=== PATIENT | male | born 1965 | race African-American/Black ===

== ENCOUNTER 2017-04-15 16:14 | Inpatient (IN) | payer BC, OTHER ==
[~2017-04-15] VITALS: Ht 177.8 cm; Wt 88.5 kg
[~2017-04-15 16:14] MED LIST: DEPAKOTE500 MG PO; MINIPRESS1 MG PO; NAPHAZOLINE HCL15 ML OP; NKM; NYSTOP POWDER15 GM EXT; QUETIAPINE FUM200 MG ORAL; TIMOPTIC 0.5%1 EACH OP; TRUSOPT10 ML BOTH EYES
[2017-04-15] MEDS ORDERED: LORazepam Inj 2mg/ml 1ml IV ONE (16:30)
[2017-04-15 16:48] LABS: BASOPHILS % (AUTO) 1.9 % (0.0-2.0); EOSINOPHILS % (AUTO) 0.2 % (0.0-3.0); LYMPHOCYTES % (AUTO) 24.8 % (20.0-45.0); MEAN CORPUSCULAR HEMOGLOBIN 31.9 PG (27.0-31.0); MEAN CORPUSCULAR HGB CONC 33.5 G/DL (32.0-36.0); MEAN CORPUSCULAR VOLUME 95 FL (80-99); MEAN PLATELET VOLUME 8.3 FL (6.5-10.1); MONOCYTES % (AUTO) 9.7 % (1.0-10.0); NEUTROPHILS % (AUTO) 63.5 % (45.0-75.0); PLATELET COUNT 351 K/UL (150-450); RED BLOOD COUNT 4.38 M/UL (4.70-6.10); RED CELL DISTRIBUTION WIDTH 12.4 % (11.6-14.8); WHITE BLOOD COUNT 15.4 K/UL (4.8-10.8)
[2017-04-15] MEDS ORDERED: UNOBMED (17:02)
[2017-04-15 17:34] VITALS: BP 119/84
[2017-04-15 18:18] LABS: TROPONIN I < 0.30 ng/mL (<=0.30)
[2017-04-15 18:21] LABS: ALANINE AMINOTRANSFERASE 49 U/L (3-41); ALBUMIN/GLOBULIN RATIO 1.3 (1.0-2.7); ANION GAP 13 (5-15); ASPARTATE AMINO TRANSFERASE 60 U/L (5-40); CALCIUM 8.2 mg/dL (8.6-10.2); CARBON DIOXIDE 26 mEQ/L (20-30); CHLORIDE 106 mEQ/L (98-107); CREATININE 1.2 mg/dL (0.7-1.2); GLOMERULAR FILTRATION RATE > 60 mL/min (>60); HEMOLYSIS 132; POTASSIUM 4.4 mEQ/L (3.4-4.9); SODIUM 145 mEQ/L (135-145); TOTAL PROTEIN 6.7 g/dL (6.6-8.7)
[2017-04-15 18:31] LABS: CKMB 14.6 ng/mL (< 6.7)
[2017-04-15 18:40] VITALS: BP 119/83
[2017-04-15] MEDS ORDERED: ABILIFY20 MG ORAL (18:57)
[2017-04-15] MEDS ORDERED: Nitroglycerin Subl 0.4mg tab SL PRN (19:30)
[2017-04-15 19:51] VITALS: BP 119/78
--- NOTE | 2017-04-15 20:14 | Emergency Room Report ---
History of Present Illness General Chief Complaint: Chest Pain Source: Patient Present Illness HPI 51-year-old male presents ED complaining of chest pain. Per EMS patient used cocaine today and shortly after developed chest pain. Patient was given aspirin and nitroglycerin by EMS without relief. Pain is a 7/10, squeezing, nonradiating. Denies shortness of breath. Denies history of high blood pressure diabetes. No other aggravating relieving factors. Denies any other associated symptoms Allergies: Coded Allergies: HALOPERIDOL (Unverified Allergy, Unknown, 07/28/14) MORPHINE (Unverified Allergy, Unknown, 07/28/14) Patient History Past Medical History: psych hx Past Surgical History: none Pertinent Family History: none Social History: Reports: drug use, Denies: smoking, alcohol use Immunizations: UTD Reviewed Nursing Documentation: PMH: Agreed, PSxH: Agreed Nursing Documentation-PMH Hx Cardiac Problems: No Hx Cancer: No Hx Gastrointestinal Problems: Yes History Of Psychiatric Problem: Yes - depression, drug use Hx Neurological Problems: No Review of Systems All Other Systems: negative except mentioned in HPI Physical Exam Vital Signs Date Time Temp Pulse Resp B/P (MAP) Pulse Ox O2 Delivery O2 Flow Rate FiO2 04/15/17 15:58 99.1 109 20 149/89 96 Room Air Sp02 EP Interpretation: reviewed, normal General Appearance: no apparent distress, alert, GCS 15, non-toxic Head: normocephalic, atraumatic Eyes: bilateral eye normal inspection, bilateral eye PERRL ENT: hearing grossly normal, normal pharynx, no angioedema, normal voice Neck: full range of motion, supple/symm/no masses Respiratory: chest non-tender, lungs clear, normal breath sounds, speaking full sentences Cardiovascular #1: no edema, tachycardia Cardiovascular #2: 2+ carotid (R), 2+ carotid (L), 2+ radial (R), 2+ radial (L) , 2+ dorsalis pedis (R), 2+ dorsalis pedis (L) Gastrointestinal: normal bowel sounds, non tender, soft, non-distended, no guarding, no rebound Rectal: deferred Genitourinary: normal inspection, no CVA tenderness Musculoskeletal: back normal, gait/station normal, normal range of motion, non- tender Neurologic: alert, oriented x3, responsive, motor strength/tone normal, sensory intact, speech normal Psychiatric: judgement/insight normal, memory normal, mood/affect normal, no suicidal/homicidal ideation Reflexes: 3+ bicep (R), 3+ bicep (L), 3+ tricep (R), 3+ tricep (L), 3+ knee (R) , 3+ knee (L) Skin: normal color, no rash, warm/dry, well hydrated Lymphatic: no adenopathy Medical Decision Making Diagnostic Impression: Primary Impression: Cocaine abuse Additional Impressions: ACS (acute coronary syndrome) Rhabdomyolysis Qualified Codes: M62.82 - Rhabdomyolysis ER Course Hospital Course 51-year-old male presents ED complaining of chest pain after cocaine use Differential diagnoses include: NM/unstable angina, contusion, muscle strain, PTX, rib fracture Clinical course Patient placed on stretcher. on monitoring and evaluation advisor. After initial history and physical I ordered labs, EKG, chest x-ray, IVFs, ativan labs reviewed- leukocytosis noted, hemoglobin/hematocrit stable, electrolytes okay, CK elevated, troponin negative EKG shows sinus tachycardia, no acute ischemic changes interpreted by me Chest x-ray- unremarkable Patient chest pain improved, tachycardia improved after Ativan Case discussed with Dr. Ge and he agreed to accept the patient to his service for further care and support I. I feel this is a highly complex case requiring extensive working including EKG/Rhythm strip, Xray/CT/US, Blood/urine lab work, repeat exams while in ED, and administration of strong opiates/narcotics for pain control, admission to hospital or close patient follow up. Diagnosis - ACS, cocaine abuse, rhabdomyolysis admitted to telemetry in serious condition Labs Test 04/15/17 16:30 04/15/17 17:30 White Blood Count 15.4 K/UL (4.8-10.8) Red Blood Count 4.38 M/UL (4.70-6.10) Hemoglobin 14.0 G/DL (14.2-18.0) Hematocrit 41.7 % (42.0-52.0) Mean Corpuscular Volume 95 FL (80-99) Mean Corpuscular Hemoglobin 31.9 PG (27.0-31.0) Mean Corpuscular Hemoglobin Concent 33.5 G/DL (32.0-36.0) Red Cell Distribution Width 12.4 % (11.6-14.8) Platelet Count 351 K/UL (150-450) Mean Platelet Volume 8.3 FL (6.5-10.1) Neutrophils (%) (Auto) 63.5 % (45.0-75.0) Lymphocytes (%) (Auto) 24.8 % (20.0-45.0) Monocytes (%) (Auto) 9.7 % (1.0-10.0) Eosinophils (%) (Auto) 0.2 % (0.0-3.0) Basophils (%) (Auto) 1.9 % (0.0-2.0) Urine Opiates Screen Negative (NEGATIVE) Urine Barbiturates Screen Negative (NEGATIVE) Phencyclidine (PCP) Screen Negative (NEGATIVE) Urine Amphetamines Screen Negative (NEGATIVE) Urine Benzodiazepines Screen Negative (NEGATIVE) Urine Cocaine Screen Positive (NEGATIVE) Urine Marijuana (THC) Screen Positive (NEGATIVE) Sodium Level 145 mEQ/L (135-145) Potassium Level 4.4 mEQ/L (3.4-4.9) Chloride Level 106 mEQ/L (98-107) Carbon Dioxide Level 26 mEQ/L (20-30) Anion Gap 13 (5-15) Blood Urea Nitrogen 22 mg/dL (7-23) Creatinine 1.2 mg/dL (0.7-1.2) Estimat Glomerular Filtration Rate > 60 mL/min (>60) Glucose Level 91 mg/dL (74-106) Calcium Level 8.2 mg/dL (8.6-10.2) Total Bilirubin 0.8 mg/dL (0.0-1.2) Aspartate Amino Transf (AST/SGOT) 60 U/L (5-40) Alanine Aminotransferase (ALT/SGPT) 49 U/L (3-41) Alkaline Phosphatase 50 U/L (40-129) Total Creatine Kinase 1836 U/L (38-174) Creatine Kinase MB 14.6 ng/mL (< 6.7) Creatine Kinase MB Relative Index 0.7 Troponin I < 0.30 ng/mL (<=0.30) Total Protein 6.7 g/dL (6.6-8.7) Albumin 3.9 g/dL (3.5-5.2) Globulin 2.8 g/dL Albumin/Globulin Ratio 1.3 (1.0-2.7) EKG Diagnostic Results Rate: tachycardiac Rhythm: NSR ST Segments: no acute changes ASA given to the pt in ED: No - given by ems Rhythm Strip Diag. Results EP Interpretation: yes Rhythm: NSR, no PVC's, no ectopy Chest X-Ray Diagnostic Results Chest X-Ray Diagnostic Results : Chest X-Ray Ordered: Yes # of Views/Limited/Complete: 1 View Indication: Chest Pain EP Interpretation: Yes Interpretation: no consolidation, no effusion, no pneumothorax, no acute cardiopulmonary disease Impression: No acute disease Electronically Signed by: Electronically signed by Josh Levi MD Last Vital Signs Date Time Temp Pulse Resp B/P (MAP) Pulse Ox O2 Delivery O2 Flow Rate FiO2 04/15/17 19:51 98.4 92 16 119/78 98 Room Air Status: improved Disposition: ADMITTED INPATIENT Condition: Serious Referrals: NOT CHOSEN MAGUE/,REFERRING (PCP) JOSH LEVI M.D. Apr 15, 2017 20:14
[2017-04-15] MEDS ORDERED: Milk of Magnesia 30ml Ud ORAL PRN (21:00)
[2017-04-15] MEDS ORDERED: Zolpidem 5mg tab ORAL PRN (21:00)
[2017-04-15 21:50] VITALS: BP 126/78
[2017-04-15 23:01] VITALS: BP 124/76
[2017-04-15 23:45] VITALS: BP 124/79
[2017-04-16] VITALS: BP 146/74
[2017-04-16] MEDS: Docusate 100mg cap ORAL SCH ×3 (00:59→21:54)
[2017-04-16] MEDS: 1/2NS w/KCl 20mEq 1000ml 1,000 ML IV SCH ×3 (01:00→17:05)
[2017-04-16] MEDS: Heparin 5000 units/ml inj SUBQ SCH ×4 (01:00→21:13)
[2017-04-16] MEDS: LORazepam Inj 2mg/ml 1ml IV PRN ×2 (02:08→21:54)
[2017-04-16 04:00] VITALS: BP 127/79
[2017-04-16 07:33] LABS: ANION GAP 9 (5-15); CALCIUM 10.8 mg/dL (8.6-10.2); CARBON DIOXIDE 27 mEQ/L (20-30); CHLORIDE 103 mEQ/L (98-107); GLOMERULAR FILTRATION RATE > 60 mL/min (>60); HEMOLYSIS 1; POTASSIUM 3.8 mEQ/L (3.4-4.9); SODIUM 139 mEQ/L (135-145)
[2017-04-16 08:00] VITALS: BP 116/86
[2017-04-16] MEDS ORDERED: ARIPiprazole 10mg tab ORAL SCH (09:00)
[2017-04-16] MEDS: Aspirin Baby 81mg ORAL SCH (09:24)
--- NOTE | 2017-04-16 09:55 | Diagnostic Imaging Report ---
Indication: Chest pain Technique: One view of the chest Comparison: none Findings: Lungs and pleural spaces are clear. Heart size is normal. Impression: No acute process This agrees with the preliminary interpretation provided by the emergency room physician
[2017-04-16 11:46] VITALS: BP 114/73
--- NOTE | 2017-04-16 11:48 | Wound Care Consultation ---
Wound Assessment Wound Assessment : Wound Number: 1 Wound Present on Admission: Yes New Wound: No Status Change of Wound: No Wound Location Body Site Modif: right Wound Location Body Site: heel Wound Type: pressure ulcer Madeline Test: Does not Madeline Pressure Ulcer Stage: IV/unstageable Wound Thickness: Full Thickness Wound Length: 2.0 Wound Width: 1.5 Wound Depth: utd Percent of Wound Moody/Red: 20 Percent of Wound Bed Yellow/Wh: 80 Wound Drainage Description: Serosanguineous Wound Drainage Amount: Moderate Wound Drainage Odor: None/Absent Tissue Surrounding Wound: Macerated Wound General Appearance: Reddened, Necrotic Wound Comment #1 right heel pressure ulcer unstageable. Recommendation. -Local wound care as ordered. -Turn and reposition. -Keep clean and dry. -pressure reducing mattress. -Optimize nutrition. -apply heel protectors. - Float heels -Avoid friction. -Assess and notify MD for any changes of condition to skin. OSITO PABON Apr 16, 2017 11:48
[2017-04-16] MEDS: Dorzolamide 2% Btl BOTH EYES SCH ×3 (12:04→17:04)
[2017-04-16 16:00] VITALS: BP 122/82
--- NOTE | 2017-04-16 19:03 | Cardiology Report ---
APPROVED REPORT EKG Measurement Heart [id number] Sinus tachycardia Moderate voltage criteria for LVH, may be normal variant Borderline ECG
[2017-04-16 20:28] VITALS: BP 121/77
--- NOTE | 2017-04-16 21:30 | History and Physical Report ---
DATE OF ADMISSION: 04/15/2017 CHIEF COMPLAINT: Suicidal ideation and drug overdose. History Of Present Illness: This is a 51-year-old male with long history of depression and polysubstance abuse. The patient claims that he had suicidal ideation and used cocaine due to that. The patient developed also chest pain. PAST MEDICAL HISTORY: 1. Depression. 2. Psychosis. 3. Glaucoma. Home Medications: Abilify, Depakote, Trusopt, eyedrops, nystatin powder, Minipress capsules, Seroquel, and timolol eyedrops. ALLERGIES: To haloperidol and morphine. FAMILY HISTORY: Unremarkable. SOCIAL HISTORY: He lives at home. HABITS: Significant for polysubstance abuse which includes cocaine. Review Of Systems: HEENT: Hearing and eyesight are normal. Endocrine: No history of diabetes, thyroid, or adrenal problems. Respiratory: He denies shortness of breath, cough, or hemoptysis. Cardiovascular: He had chest pain when presented to the ED, currently subsided. Neurologic: No history of stroke, syncope, or Parkinson disease. PHYSICAL EXAMINATION: General: This is a middle-aged male, who is in no acute distress. The patient seems to be in depressed mood. Vital Signs: Blood pressure 127/79, pulse 90 and regular, respirations 20, and temperature 98.6. HEENT: Head is normocephalic and atraumatic. Pupils are equal, round, and reactive to light and accommodation consensually. Neck: Supple. Trachea midline. There was no lymphadenopathy or thyromegaly. LUNGS: Clear to auscultation and percussion. HEART: Regular rate and rhythm without rubs, murmurs, or gallops. ABDOMEN: Soft and nontender. Bowel sounds are active. EXTREMITIES: No clubbing, cyanosis, or edema. Neurological: He is alert and oriented x4. Cranial nerves II through XII intact. Laboratory And Ancillary Data: EKG shows LVH, no signs of ischemia. CBC, white count 15,400, otherwise within normal limits. Urine toxicology screen significant for cocaine and marijuana. Serum chemistry, calcium 8.2, AST 60, ALT 49. CPK 1836 on admission yesterday. Today's labs pending. ASSESSMENT: 1. Acute rhabdomyolysis, mild due to cocaine use. 2. Atypical chest pain due to cocaine use. 3. Polysubstance abuse. 4. Suicidal ideation. PLAN: 1. Resume home medications. 2. Psychiatric consultation. 3. The patient needs a sitter. 4. Try to transfer to the [facility] where the patient's primary care is provided. 5. Continue telemetry. Anupam Manning M.D. DR: MEREDITH JOB#: [id number] CC:
--- NOTE | 2017-04-16 23:28 | Consultation ---
History of Present Illness General Chief Complaint: Chest Pain Present Illness HPI 51-year-old male with long history of depression and polysubstance abuse. The patient stated that he has had suicidal ideation, he also used cocaine. He has hx of drug use, kicked him out trying to get a divorce he has a job at [employer]. the pt stated that he is currently homeless. target sxs depressed mood, anhedonia, decrease energy Allergies: Coded Allergies: HALOPERIDOL (Unverified Allergy, Unknown, 07/28/14) MORPHINE (Unverified Allergy, Unknown, 07/28/14) Medication History Scheduled Aripiprazole* (Abilify*), 20 MG ORAL DAILY, (Reported) Divalproex Sodium (Depakote), 1,500 MG PO DAILY, (Reported) Dorzolamide Hcl* (Trusopt*), 1 DROP BOTH EYES TID, (Reported) Quetiapine Fumarate* (Seroquel*), 100 MG ORAL HS, (Reported) Timolol Maleate/Pf (Timoptic 0.5% Ocudose Drop), 1 EACH OP BID, (Reported) Miscellaneous Medications Naphazoline Hcl (Naphazoline Hcl), 15 ML OP, (Reported) Nystatin (Nystop), 15 GM EXT, (Reported) Prazosin Hcl* (Minipress*), 20 MG PO, (Reported) Unable to Obtain Medications (Unable To Obtain Meds), (Reported) Patient History History Provided By: Patient, Medical Record, PMD Healthcare decision maker Resuscitation status Full Code Advanced Directive on File Past Medical/Surgical History Past Medical/Surgical History: (1) Suicidal ideation (2) Suicidal ideation (3) Hemoptysis (4) Pneumonia (5) Cough (6) Depression (7) Umbilical hernia (8) Glaucoma (9) Inguinal hernia, right (10) Pneumonia (11) Suicidal ideation (12) Renal failure (ARF), acute on chronic (13) Polysubstance abuse (14) Chest pain of uncertain etiology (15) Rhabdomyolysis (16) ACS (acute coronary syndrome) (17) Cocaine abuse Review of Systems Psychiatric: Reports: see HPI, prior hx, anxiety, depressed feelings, emotional problems Physical Exam General Appearance: no apparent distress, alert Neurologic: alert, oriented x 3, responsive, depressed affect Last 24 Hour Vital Signs Date Time Temp Pulse Resp B/P (MAP) Pulse Ox O2 Delivery O2 Flow Rate FiO2 04/16/17 20:28 98.1 81 19 121/77 96 Room Air 04/16/17 16:00 98.1 87 19 122/82 96 Room Air 04/16/17 16:00 83 04/16/17 12:00 82 04/16/17 11:46 97.7 84 20 114/73 98 Room Air 04/16/17 08:00 97.0 82 19 116/86 99 Room Air 04/16/17 08:00 88 04/16/17 04:00 95 04/16/17 04:00 98.6 90 20 127/79 99 Room Air 04/16/17 00:00 97.9 91 22 146/74 96 Room Air 04/15/17 23:58 92 04/15/17 23:50 80 14 124/79 98 Room Air 04/15/17 23:45 97.8 80 14 124/79 98 Room Air Intake and Output 04/16/17 04/17/17 19:00 07:00 Intake Total 1020 ml 300 ml Output Total 1350 ml Balance -330 ml 300 ml Intake Oral 520 ml IV Total 500 ml 300 ml Output Urine Total 1350 ml # Bowel Movements 2 Laboratory Tests Test 04/16/17 06:25 Sodium Level 139 mEQ/L (135-145) Potassium Level 3.8 mEQ/L (3.4-4.9) Chloride Level 103 mEQ/L (98-107) Carbon Dioxide Level 27 mEQ/L (20-30) Anion Gap 9 (5-15) Blood Urea Nitrogen 19 mg/dL (7-23) Creatinine 1.0 mg/dL (0.7-1.2) Estimat Glomerular Filtration Rate > 60 mL/min (>60) Glucose Level 101 mg/dL (74-106) Calcium Level 10.8 mg/dL (8.6-10.2) #H Total Creatine Kinase 1403 U/L (38-174) H Height (Feet): 5 Height (Inches): 10.00 Weight (Pounds): 195 Medications Current Medications Medications (Trade) Dose Ordered Sig/Pily Route PRN Reason Start Time Stop Time Status Last Admin Dose Admin Acetaminophen (Tylenol) 650 mg Q4H PRN ORAL Mild Pain (Pain Scale 1-3) 04/15/17 19:30 05/15/17 19:29 Aripiprazole (Abilify) 20 mg DAILY ORAL 04/16/17 09:00 05/16/17 08:59 04/16/17 09:25 Aspirin (ASA) 81 mg DAILY ORAL 04/16/17 09:00 05/16/17 08:59 04/16/17 09:24 Bupropion HCl (Wellbutrin XL) 150 mg DAILY ORAL 04/17/17 09:00 05/17/17 08:59 Dextrose (Dextrose 50%) STAT PRN IV Hypoglycemia 04/15/17 19:30 05/15/17 19:29 Docusate Sodium (Colace) 100 mg EVERY 12 HOURS ORAL 04/15/17 21:00 05/15/17 20:59 04/16/17 21:54 Dorzolamide HCl (Trusopt) 1 drop TID BOTH EYES 04/16/17 09:00 05/16/17 08:59 04/16/17 17:04 Heparin Sodium (Porcine) (Heparin 5000 units/ml) 5,000 units EVERY 8 HOURS SUBQ 04/15/17 22:00 05/15/17 21:59 Lorazepam (Ativan 2mg/ml 1ml) 0.5 mg Q4H PRN IV For Anxiety 04/15/17 19:30 04/22/17 19:29 04/16/17 21:54 Magnesium Hydroxide (Mom) 30 ml HSPRN PRN ORAL Constipation 04/15/17 21:00 05/15/17 20:59 Nitroglycerin (Ntg) 0.4 mg Q5M PRN SL Prn Chest Pain 04/15/17 19:30 05/15/17 19:29 Ondansetron HCl (Zofran) 4 mg Q6H PRN IVP Nausea & Vomiting 04/15/17 19:30 05/15/17 19:29 Pantoprazole (Protonix) 40 mg DAILY ORAL 04/16/17 09:00 05/16/17 08:59 04/16/17 09:25 Prazosin HCl (Minipress) 2 mg QHS ORAL 04/16/17 21:00 05/16/17 20:59 04/16/17 21:52 Quetiapine Fumarate (SEROquel) 100 mg QHS ORAL 04/16/17 21:00 05/16/17 20:59 04/16/17 21:53 Sodium 1,000 ml @ 100 mls/hr Q10H IV 04/15/17 22:00 05/15/17 21:59 04/16/17 17:05 Zolpidem Tartrate (Ambien) 5 mg HSPRN PRN ORAL Insomnia 04/15/17 21:00 04/22/17 20:59 Assessment/Plan Status: stable Assessment/Plan Bipolar d/o -dc sbilify and welbutrin -seroquel 200mg -refer to out pt psych Jose Meade M.D. Apr 16, 2017 23:28
[2017-04-17] VITALS: BP 124/71
[2017-04-17 04:00] VITALS: BP 120/70
[2017-04-17] MEDS: 1/2NS w/KCl 20mEq 1000ml 1,000 ML IV SCH ×2 (04:00→14:04)
[2017-04-17] MEDS: Heparin 5000 units/ml inj SUBQ SCH ×3 (05:13→22:00)
[2017-04-17 08:00] VITALS: BP 123/77
[2017-04-17] MEDS: Dorzolamide 2% Btl BOTH EYES SCH ×3 (09:13→18:47)
[2017-04-17] MEDS: Docusate 100mg cap ORAL SCH ×2 (09:13→20:31)
[2017-04-17] MEDS: BuPROPion XL 150mg tab ORAL SCH (09:14)
[2017-04-17] MEDS: Aspirin Baby 81mg ORAL SCH (09:14)
--- NOTE | 2017-04-17 10:50 | General Progress Note ---
Assessment/Plan Assessment/Plan Acute Rhabdomyolysis reslving. Suicidal Ideation -per Psychitry. Subjective Allergies: Coded Allergies: HALOPERIDOL (Unverified Allergy, Unknown, 07/28/14) MORPHINE (Unverified Allergy, Unknown, 07/28/14) Subjective No new c/o. Psych Eval noted. Objective Last 24 Hour Vital Signs Date Time Temp Pulse Resp B/P (MAP) Pulse Ox O2 Delivery O2 Flow Rate FiO2 04/17/17 08:00 97.7 94 20 123/77 97 Room Air 04/17/17 08:00 74 04/17/17 04:00 97.9 83 18 120/70 98 Room Air 04/17/17 03:38 84 04/17/17 00:00 98.1 86 19 124/71 96 Room Air 04/16/17 23:58 86 04/16/17 20:28 98.1 81 19 121/77 96 Room Air 04/16/17 20:00 84 04/16/17 16:00 98.1 87 19 122/82 96 Room Air 04/16/17 16:00 83 04/16/17 12:00 82 04/16/17 11:46 97.7 84 20 114/73 98 Room Air Laboratory Tests 04/17/17 06:15: Total Creatine Kinase 480H Height (Feet): 5 Height (Inches): 10.00 Weight (Pounds): 195 Objective Seems depressed. Cv RR Lungs CTA Abd SNT. BS+ E No CCE JACKELIN MONTESINOS Apr 17, 2017 10:50
[2017-04-17 12:00] VITALS: BP 122/82
[2017-04-17 16:00] VITALS: BP 126/76
[2017-04-17 20:00] VITALS: BP 125/82
[2017-04-17] MEDS: LORazepam Inj 2mg/ml 1ml IV PRN (20:33)
[2017-04-17] MEDS ORDERED: QUEtiapine 200mg tab ORAL SCH (21:00)
[2017-04-17] MEDS ORDERED: LORazepam 1mg tab ORAL PRN (23:00)
[2017-04-18] VITALS: BP 120/81
[2017-04-18] MEDS: 1/2NS w/KCl 20mEq 1000ml 1,000 ML IV SCH ×2 (01:04→11:05)
[2017-04-18 04:00] VITALS: BP 120/71
[2017-04-18] MEDS: Heparin 5000 units/ml inj SUBQ SCH ×2 (06:00→13:42)
[2017-04-18 08:00] VITALS: BP 132/85
[2017-04-18] MEDS: BuPROPion XL 150mg tab ORAL SCH (08:45)
[2017-04-18] MEDS: Docusate 100mg cap ORAL SCH (08:45)
[2017-04-18] MEDS: Dorzolamide 2% Btl BOTH EYES SCH ×3 (08:45→17:08)
[2017-04-18] MEDS: Aspirin Baby 81mg ORAL SCH (08:46)
--- NOTE | 2017-04-18 09:46 | Progress Note ---
DATE: 04/17/2017 Subjective: The patient continues to present with depressed mood. He is withdrawn. He is crashing from using cocaine. The patient still expresses suicidal ideation, however, he did not have any plan or intention during the day. The patient was on one-to-one during the day. The patient is compliant with medication. Eating 100 percentile. Sleep is adequate. Mental Status Examination: The patient is alert and oriented x4. Mood is depressed. Affect is constricted. Congruent with mood. Thought process is concrete. Thought content, positive for suicidal ideation. No plan or intention to have a suicide attempt. ASSESSMENT: 1. Depression. 2. Cocaine use. PLAN: 1. We will continue the current medications. 2. The nurse called for a sitter. The order was not given. We will increase the Seroquel to 300 mg at bedtime. 3. We will continue the Ativan. 4. We will change the dose from 0.5 mg to 2 mg every 6 hours p.o. 5. We will continue to follow and readjust the medications. Jose Meade M.D. DR: SHARON JOB#: [id number] CC:
--- NOTE | 2017-04-18 10:01 | General Progress Note ---
Assessment/Plan Status: stable, progressing Assessment/Plan bipolar d/o cocaine abuse -Wellbutrin xl 150 -seroquel -rec drug rehab Subjective Neurologic/Psychiatric: Reports: depressed, emotional problems Allergies: Coded Allergies: HALOPERIDOL (Unverified Allergy, Unknown, 07/28/14) MORPHINE (Unverified Allergy, Unknown, 07/28/14) Subjective the pt stated that he spoke to his and she is still mad at him. the pt has cocaine dependence and spent lots of money on cocaine. the pt stated that he feels "really low" he stated that he does not have suicidal ideation. he would like to go drug rehab. he used 10 gram of cocaine over the past 2 weeks. the pt is also homeless since wont take him back. Objective Last 24 Hour Vital Signs Date Time Temp Pulse Resp B/P (MAP) Pulse Ox O2 Delivery O2 Flow Rate FiO2 04/18/17 08:00 97.9 100 18 132/85 97 Room Air 04/18/17 04:00 89 04/18/17 04:00 97.9 85 18 120/71 96 Room Air 04/18/17 00:00 97.7 82 18 120/81 97 Room Air 04/18/17 00:00 80 04/17/17 20:00 101 04/17/17 20:00 98.2 88 18 125/82 93 Nasal Cannula 2.0 04/17/17 16:00 98.2 96 20 126/76 100 Room Air 04/17/17 16:00 88 04/17/17 12:00 98.2 89 20 122/82 98 Room Air 04/17/17 12:00 96 Intake and Output 04/18/17 04/19/17 19:00 07:00 Intake Total 100 ml Balance 100 ml IV Total 100 ml Height (Feet): 5 Height (Inches): 10.00 Weight (Pounds): 195 General Appearance: no apparent distress, alert, overweight Neurologic: alert, oriented x 3, responsive, depressed affect Jose Meade M.D. Apr 18, 2017 10:01
[2017-04-18 12:00] VITALS: BP 137/91
--- NOTE | 2017-04-18 12:02 | General Progress Note ---
Assessment/Plan Assessment/Plan Acute Rhabdomyolysis reslving. Suicidal Ideation -per Psychitry. Stable for DC. Subjective Allergies: Coded Allergies: HALOPERIDOL (Unverified Allergy, Unknown, 07/28/14) MORPHINE (Unverified Allergy, Unknown, 07/28/14) Subjective No new c/o. Psych Eval noted. Objective Last 24 Hour Vital Signs Date Time Temp Pulse Resp B/P (MAP) Pulse Ox O2 Delivery O2 Flow Rate FiO2 04/18/17 08:00 97.9 100 18 132/85 97 Room Air 04/18/17 08:00 104 04/18/17 04:00 89 04/18/17 04:00 97.9 85 18 120/71 96 Room Air 04/18/17 00:00 97.7 82 18 120/81 97 Room Air 04/18/17 00:00 80 04/17/17 20:00 101 04/17/17 20:00 98.2 88 18 125/82 93 Nasal Cannula 2.0 04/17/17 16:00 98.2 96 20 126/76 100 Room Air 04/17/17 16:00 88 Intake and Output 04/18/17 04/19/17 19:00 07:00 Intake Total 100 ml Balance 100 ml IV Total 100 ml Laboratory Tests 04/18/17 10:20: Total Creatine Kinase 168 Height (Feet): 5 Height (Inches): 10.00 Weight (Pounds): 195 Objective Seems depressed. Cv RR Lungs CTA Abd SNT. BS+ E No CCE JACKELIN MONTESINOS Apr 18, 2017 12:02
[2017-04-18 16:00] VITALS: BP 132/88
--- NOTE | 2017-04-18 16:35 | Cardiology Report ---
APPROVED REPORT EKG Measurement Heart [id number] NM [id number] Normal sinus rhythm Normal ECG
[2017-04-18 19:49] VITALS: BP 132/90
[2017-04-18] MEDS ORDERED: QUEtiapine 200mg tab ORAL SCH (21:00)
--- NOTE | 2017-04-20 08:26 | Discharge Summary ---
Discharge Summary Hospital Course Date of Admission Apr 15, 2017 at 17:32 Date of Discharge Apr 18, 2017 at 21:00 Admitting Diagnosis cocaine induced CP HPI Hardy Hood is a 51 year old male who was admitted on Apr 15, 2017 at 17:32 for Cocaine Induced Chest Pain Hospital Course [id number] Discharge Discharge Disposition Patient was discharged to Psychiatric Facility ([id number]) Discharge Diagnoses: Hattie Lawton NP Apr 20, 2017 08:26
--- NOTE | 2017-04-21 02:45 | Discharge Summary 2 SIG ---
DATE OF ADMISSION: 04/15/2017 DATE OF DISCHARGE: 04/18/2017 Brief Hospital Course: The patient is a 51-year-old male with a long history of depression and polysubstance abuse. The patient claimed that he had suicidal ideation and used cocaine. He developed chest pain. On evaluation at ED, urine toxicology screen was significant for cocaine and marijuana. CPK was 1836 on admission. Troponin was negative. He had an EKG that showed left ventricular hypertrophy with no signs of ischemia. He was admitted for acute rhabdomyolysis due to cocaine use and for evaluation of chest pain. He was resumed on home medications and was provided a sitter. He was continued on his Seroquel, Wellbutrin, Risperdal, and Abilify. He was given lorazepam p.r.n. agitation. Chest x-ray done showed no acute process. He underwent psychiatric evaluation with Dr. Meade. The patient was diagnosed with bipolar disorder. Abilify and Wellbutrin were discontinued and Seroquel dose was increased to 300 mg at bedtime. Seroquel was eventually discontinued and was given Wellbutrin XL 150 mg. Rhabdomyolysis resolving. The patient was stable for discharge. He was eventually discharged to a psychiatric facility. FINAL DIAGNOSES: 1. Acute rhabdomyolysis. 2. Atypical chest pain due to cocaine use. 3. Polysubstance abuse. 4. Suicidal ideation. 5. Bipolar disorder. Disposition: The patient was discharged to a psychiatric facility, [facility]. DISCHARGE MEDICATIONS: Refer to med list. Anupam Manning M.D. I have been assigned to dictate discharge summary on this account and I was not involved in the patient's management. Hattie Lawton N.P. DR: KIKI JOB#: [id number] CC:
== END 2017-04-18 21:00 | DRG 558 ==
LOC: EDBD 16:14 → EMR 17:15 → 2E 17:32 → EDBEDREQ 21:40 → 2E 04-16 08:19
DX: M62.82 Rhabdomyolysis (principal); I24.9 Acute ischemic heart disease, unspecified; R45.851 Suicidal ideations; F15.10 Other stimulant abuse, uncomplicated; F31.9 Bipolar disorder, unspecified; Z59.0 Homelessness
CPT/HCPCS: 36415; 71010; 80048; 80053; 80300; 82550; 82553; 84484; 85025; 87070; 87081; 87181; 87205; 93005; 99285

== ENCOUNTER 2017-04-27 04:10 | Inpatient (IN) | payer BC, OTHER ==
[2017-04-27] VITALS (8 sets, daily range): BP systolic 103–137; BP diastolic 62–84
[~2017-04-27] VITALS: Ht 177.8 cm; Wt 90.7 kg
[~2017-04-27 04:10] MED LIST changes: +ABILIFY20 MG ORAL; +UNOBMED
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
[2017-04-27] MEDS ORDERED: SEROQUEL100 MG ORAL (04:23)
[2017-04-27] MEDS ORDERED: WELLBUTRIN XL150 MG ORAL (04:23)
[2017-04-27] MEDS ORDERED: Aspirin Baby 81mg ORAL ONE (04:30)
[2017-04-27 05:28] LABS: BASOPHILS % (AUTO) 1.4 % (0.0-2.0); LYMPHOCYTES % (AUTO) 12.5 % (20.0-45.0); MEAN CORPUSCULAR HEMOGLOBIN 30.6 PG (27.0-31.0); MEAN CORPUSCULAR VOLUME 96 FL (80-99); MEAN PLATELET VOLUME 7.8 FL (6.5-10.1); MONOCYTES % (AUTO) 11.9 % (1.0-10.0); NEUTROPHILS % (AUTO) 74.2 % (45.0-75.0); PLATELET COUNT 336 K/UL (150-450); RED BLOOD COUNT 4.61 M/UL (4.70-6.10); RED CELL DISTRIBUTION WIDTH 12.9 % (11.6-14.8); WHITE BLOOD COUNT 16.1 K/UL (4.8-10.8)
[2017-04-27 06:52] LABS: ALANINE AMINOTRANSFERASE 106 U/L (3-41); ALBUMIN/GLOBULIN RATIO 1.3 (1.0-2.7); ALCOHOL < 10 mg/dL; ANION GAP 15 (5-15); ASPARTATE AMINO TRANSFERASE 419 U/L (5-40); CALCIUM 9.9 mg/dL (8.6-10.2); CARBON DIOXIDE 26 mEQ/L (20-30); CHLORIDE 99 mEQ/L (98-107); CREATININE 1.3 mg/dL (0.7-1.2); GLOMERULAR FILTRATION RATE > 60 mL/min (>60); HEMOLYSIS 36; POTASSIUM 4.2 mEQ/L (3.4-4.9); SODIUM 140 mEQ/L (135-145); TOTAL PROTEIN 8.1 g/dL (6.6-8.7)
[2017-04-27] MEDS ORDERED: Enalaprilat 2.5mg/2ml Inj IV PRN (07:00)
[2017-04-27] MEDS ORDERED: Miralax 17gm pkt ORAL PRN (07:00)
[2017-04-27] MEDS ORDERED: Nitroglycerin Subl 0.4mg tab SL PRN (07:00)
[2017-04-27] MEDS ORDERED: Ketorolac 30mg Inj IV PRN (07:00)
[2017-04-27] MEDS ORDERED: dilTIAZem HCl 25mg/5ml Inj IV PRN (07:00)
[2017-04-27] MEDS ORDERED: Albuterol/Ipratropium 3ml neb HHN PRN (07:00)
[2017-04-27] MEDS ORDERED: LORazepam Inj 2mg/ml 1ml IV ONE (07:00)
[2017-04-27 07:21] LABS: CKMB 74.4 ng/mL (< 6.7)
[2017-04-27 07:24] LABS: TROPONIN I < 0.30 ng/mL (<=0.30)
[2017-04-27] MEDS: Depakote 500mg tab ORAL SCH ×2 (09:23→09:25)
[2017-04-27] MEDS: ARIPiprazole 10mg tab ORAL SCH (09:23)
[2017-04-27] MEDS: Aspirin Baby 81mg ORAL SCH (09:23)
[2017-04-27] MEDS: BuPROPion XL 150mg tab ORAL SCH (09:24)
[2017-04-27] MEDS: Heparin 5000 units/ml inj SUBQ SCH ×2 (09:25→20:07)
[2017-04-27 10:37] LABS: TROPONIN I < 0.30 ng/mL (<=0.30)
--- NOTE | 2017-04-27 12:04 | Diagnostic Imaging Report ---
Indication: Chest pain Technique: One view of the chest Comparison: 04/15/2017 Findings: Lungs and pleural spaces remain clear. Less optimal inspiration currently. Heart size is upper limits of normal. Aorta is ectatic. Upper mediastinum is unremarkable Impression: No acute process
--- NOTE | 2017-04-27 12:04 | Cardiology Report ---
APPROVED REPORT EXAM: Two-dimensional and M-mode echocardiogram with Doppler and color Doppler. INDICATION Left ventricular function M-Mode DIMENSIONS IVSd1.6 (0.7-1.1cm)Left Atrium (MM)2.6 (1.6-4.0cm) LVDd4.6 (3.5-5.6cm)Aortic Root3.2 (2.0-3.7cm) PWd1.1 (0.7-1.1cm)Aortic Cusp Exc.2.0 (1.5-2.0cm) LVDs2.6 (2.5-4.0cm) PWs1.6 cm Normal left ventricular chamber size, systolic function and wall motion. Left ventricular ejection fraction estimated to be 60-65%. Moderate left ventricular hypertrophy. Small posterior pericardial effusion. All other cardiac chamber sizes are within normal limits. Focal aortic valve sclerosis with adequate cusp excursion. Normal mitral valve leaflets with normal excursion. Normal mitral annulus and aortic root. Pulmonic valve not well visualized. Normal tricuspid valve structure. IVC is normal in size and collapsible with respiration. A color flow and spectral Doppler study was performed and revealed: No aortic regurgitation. No mitral regurgitation. Mitral diastolic velocities suggest reduced left ventricular relaxation c/w diastolic dysfunction grade 1. No tricuspid regurgitation.
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
--- NOTE | 2017-04-27 13:35 | Cardiology Progress Note ---
Assessment/Plan Assessment/Plan recurrent cocain induced chest pain cocain abue rhabdomyolysis iv hydration echo neg trop neg chest wall somewhat tender but not sig not clear wh4y the rhabdo i doubt stress test will add much need to referain form use d/w pt [id number] Objective Last 24 Hour Vital Signs Date Time Temp Pulse Resp B/P (MAP) Pulse Ox O2 Delivery O2 Flow Rate FiO2 04/27/17 09:24 97.3 85 20 125/67 100 Room Air 04/27/17 09:03 97 04/27/17 07:37 95 17 116/77 96 Room Air 04/27/17 06:52 99.0 99 14 108/84 99 Room Air 04/27/17 05:51 99.0 103 16 112/74 100 Room Air 04/27/17 04:20 114 15 Room Air 04/27/17 04:20 99.0 114 15 119/76 100 Room Air 04/27/17 04:17 99.0 117 15 119/76 100 Room Air Laboratory Tests Test 04/27/17 04:45 04/27/17 08:50 White Blood Count 16.1 K/UL (4.8-10.8) H Red Blood Count 4.61 M/UL (4.70-6.10) L Hemoglobin 14.1 G/DL (14.2-18.0) L Hematocrit 44.1 % (42.0-52.0) Mean Corpuscular Volume 96 FL (80-99) Mean Corpuscular Hemoglobin 30.6 PG (27.0-31.0) Mean Corpuscular Hemoglobin Concent 32.0 G/DL (32.0-36.0) Red Cell Distribution Width 12.9 % (11.6-14.8) Platelet Count 336 K/UL (150-450) Mean Platelet Volume 7.8 FL (6.5-10.1) Neutrophils (%) (Auto) 74.2 % (45.0-75.0) Lymphocytes (%) (Auto) 12.5 % (20.0-45.0) L Monocytes (%) (Auto) 11.9 % (1.0-10.0) H Eosinophils (%) (Auto) 0.0 % (0.0-3.0) Basophils (%) (Auto) 1.4 % (0.0-2.0) Sodium Level 140 mEQ/L (135-145) Potassium Level 4.2 mEQ/L (3.4-4.9) Chloride Level 99 mEQ/L (98-107) Carbon Dioxide Level 26 mEQ/L (20-30) Anion Gap 15 (5-15) Blood Urea Nitrogen 27 mg/dL (7-23) H Creatinine 1.3 mg/dL (0.7-1.2) H Estimat Glomerular Filtration Rate > 60 mL/min (>60) Glucose Level 120 mg/dL (74-106) H Calcium Level 9.9 mg/dL (8.6-10.2) Total Bilirubin 1.0 mg/dL (0.0-1.2) Aspartate Amino Transf (AST/SGOT) 419 U/L (5-40) H Alanine Aminotransferase (ALT/SGPT) 106 U/L (3-41) H Alkaline Phosphatase 68 U/L (40-129) Total Creatine Kinase 02128 U/L (38-174) H Creatine Kinase MB 74.4 ng/mL (< 6.7) H Creatine Kinase MB Relative Index 0.4 Troponin I < 0.30 ng/mL (<=0.30) < 0.30 ng/mL (<=0.30) Pro-B-Type Natriuretic Peptide 353 pg/mL (0-125) H Total Protein 8.1 g/dL (6.6-8.7) Albumin 4.7 g/dL (3.5-5.2) Globulin 3.4 g/dL Albumin/Globulin Ratio 1.3 (1.0-2.7) Urine Opiates Screen Negative (NEGATIVE) Urine Barbiturates Screen Negative (NEGATIVE) Phencyclidine (PCP) Screen Negative (NEGATIVE) Urine Amphetamines Screen Negative (NEGATIVE) Urine Benzodiazepines Screen Negative (NEGATIVE) Urine Cocaine Screen Positive (NEGATIVE) H Urine Marijuana (THC) Screen Positive (NEGATIVE) H Serum Alcohol < 10 mg/dL MARCIA FARRAR Apr 27, 2017 13:35
--- NOTE | 2017-04-28 03:00 | Consultation ---
DATE OF CONSULTATION: 04/27/2017 CARDIOLOGY CONSULTATION CONSULTING PHYSICIAN: Rafat Wong M.D. REFERRING PHYSICIAN: Vale Marcelino M.D. REASON FOR REFERRAL: Chest pain. History of Present Illness: This is a very unfortunate middle-aged gentleman who is 51 years old and has a habit of using cocaine. Apparently, he has had some episodes of chest pain with cocaine use every time and he presents with similar symptoms now that he had on prior occasions. He says every time he uses cocaine, he develops chest pain that lasts approximately one day or so and it resolves after a day or two and he has recurrent symptoms at this time. The pain is a dull sensation on the left side. No radiation. No shortness of breath associated with the chest pain. No dizziness or lightheadedness. No heart pounding except for rare occasions. He uses 2 pillows for comfort and the pain seems to have worsening only at the time that he tries to sit up. No other relieving or exacerbating factors identified by the patient. Past Medical History: Denies diabetes or high blood pressure, high cholesterol, heart attack, cancer, stroke, hepatitis, tuberculosis, asthma, or emphysema. No ulcers. No kidney problems, liver problems, thyroid problems, anemia, arthritis, and no HIV or AIDS, or blood clots or coronary disease on prior occasions. ALLERGIES: Haldol and morphine. Social History: He does not smoke. He does rarely drink alcoholic beverages, but mainly uses cocaine and he binges cocaine. He may not use any for 2 weeks and use a whole lot at one time. Review Of Systems: Gastrointestinal: Negative. Genitourinary: Negative. Pulmonary: Negative. Constitutional: Negative. Neurologic: Negative. PHYSICAL EXAMINATION: GENERAL: Middle-aged gentleman in no apparent respiratory distress. Neck: Supple. No jugular venous distention. No abdominojugular reflux noted. LUNGS: Clear to auscultation and percussion. Chest: Chest wall appears to be tender and the patient seems to think that this is the same pain that he was experiencing yesterday. Cardiac: S1 is normal. S2 is normal. Regular rate and rhythm. No heaves, thrills, gallops, or rubs are noted. ABDOMEN: Soft and nontender. Positive bowel sounds. EXTREMITIES: There is no clubbing, cyanosis, or edema. Diagnostic Data: White count of 16.1 (up from 15.4 yesterday) and hemoglobin is 14.1 with a platelet count of 236. His sodium is 140, potassium 4.2, chloride 99, bicarbonate 26, BUN 27, creatinine 1.3, glucose of 120, calcium 9.9, AST of 419, ALT of 106, and alkaline phosphatase of 68. Total CK is 17,000. Two sets of cardiac enzymes show troponins are negative. ProBNP is 353. Of note, he had a CPK of 480 initially on the , and then on the , and on the 17,000. His urine drug screen is positive for cocaine and marijuana. Chest x-ray performed showed no acute processes. As documented on this EKG and echocardiogram, which was performed today, showed an ejection fraction of 60% with moderate ventricular hypertrophy and no other significant pathology was noted. Telemetry so far is sinus, otherwise negative. His electrocardiogram shows sinus tachycardia, rate of 117. No ST or T wave abnormalities. ASSESSMENT AND PLAN: 1. Chest pain associated with cocaine use. 2. Cocaine abuse. 3. Chest wall tenderness. 4. Rhabdomyolysis. Dr. Marcelino, this patient was seen in cardiac consultation. The patient appears to have a minimal amount of chest pain at the present time. Apparently, he has had this same scenario, same type of pain on prior use of cocaine, certainly is likely the cause and effect for the pain. His vital signs at the present time appear to be stable. He is not significantly tachycardic at this time. His first electrocardiogram was negative. Two sets of cardiac enzymes are negative; however, his elevated CPK is suggestive of rhabdomyolysis with skeletal muscle injury. His echocardiogram showed normal left ventricular systolic function and his EKG is unremarkable. A third set of cardiac enzymes will be performed today. I do not necessarily think he needs to have any stress testing performed in light of this normal left ventricular function, and normal troponins, and cocaine-induced chest pain history before, not at this time at least. I have actually specifically recommended that the patient refrain from the use of cocaine, the deleterious effects of cocaine with permanent cardiac damage from cocaine and vasospasm, and cocaine-induced myocardial infarction, and subsequent myocardial injury or even sudden cardiac were fully discussed with the patient and I have urged him to actually stop its use. Rafat Wong M.D. DR: JULIUS JOB#: [id number] CC:
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
[2017-04-28 04:00] VITALS: BP_SYST 110; BP_SYST 137; BP_DIAS 67; BP_DIAS 73
[2017-04-28] MEDS: LORazepam 1mg tab ORAL PRN ×2 (06:42→17:53)
[2017-04-28 07:40] LABS: BASOPHILS % (AUTO) 0.8 % (0.0-2.0); EOSINOPHILS % (AUTO) 1.1 % (0.0-3.0); LYMPHOCYTES % (AUTO) 34.5 % (20.0-45.0); MEAN CORPUSCULAR HEMOGLOBIN 30.6 PG (27.0-31.0); MEAN CORPUSCULAR HGB CONC 32.2 G/DL (32.0-36.0); MEAN CORPUSCULAR VOLUME 95 FL (80-99); MEAN PLATELET VOLUME 7.9 FL (6.5-10.1); MONOCYTES % (AUTO) 17.3 % (1.0-10.0); NEUTROPHILS % (AUTO) 46.3 % (45.0-75.0); PLATELET COUNT 270 K/UL (150-450); RED BLOOD COUNT 3.95 M/UL (4.70-6.10); RED CELL DISTRIBUTION WIDTH 12.8 % (11.6-14.8); WHITE BLOOD COUNT 8.3 K/UL (4.8-10.8)
[2017-04-28 07:49] LABS: INR 0.9 (0.9-1.1); PROTHROMBIN TIME 9.6 SEC (9.30-11.50)
[2017-04-28 07:54] LABS: MAGNESIUM 2.1 mg/dL (1.7-2.5); PHOSPHORUS 2.8 mg/dL (2.5-4.8)
[2017-04-28 07:58] LABS: ALANINE AMINOTRANSFERASE 66 U/L (3-41); ALBUMIN/GLOBULIN RATIO 1.4 (1.0-2.7); ANION GAP 11 (5-15); ASPARTATE AMINO TRANSFERASE 155 U/L (5-40); CALCIUM 8.5 mg/dL (8.6-10.2); CARBON DIOXIDE 26 mEQ/L (20-30); CHLORIDE 105 mEQ/L (98-107); GLOMERULAR FILTRATION RATE > 60 mL/min (>60); HEMOLYSIS 0; POTASSIUM 3.9 mEQ/L (3.4-4.9); SODIUM 142 mEQ/L (135-145); TOTAL PROTEIN 6.1 g/dL (6.6-8.7)
[2017-04-28 07:59] LABS: TROPONIN I < 0.30 ng/mL (<=0.30)
[2017-04-28 08:00] VITALS: BP 109/74
[2017-04-28 08:02] LABS: CHOLESTEROL/HDL RATIO 3.3 (3.3-4.4); CRP QUANT 2.4 mg/dL (< 0.5)
[2017-04-28 08:09] LABS: THYROID STIMULATING HORMONE 1.22 uIU/mL (0.300-4.500)
[2017-04-28] MEDS: BuPROPion XL 150mg tab ORAL SCH (08:58)
[2017-04-28] MEDS: Aspirin Baby 81mg ORAL SCH (08:59)
[2017-04-28] MEDS: Depakote 500mg tab ORAL SCH (08:59)
[2017-04-28] MEDS: ARIPiprazole 10mg tab ORAL SCH (09:00)
[2017-04-28] MEDS: Heparin 5000 units/ml inj SUBQ SCH ×2 (09:00→20:59)
[2017-04-28 12:00] VITALS: BP 116/74
--- NOTE | 2017-04-28 14:34 | Internal Med Progress Note ---
Subjective Date of Service: Apr 28, 2017 Physician Name Francois,Melissa Attending Physician Joey Marroquin MD Current Medications Medications (Trade) Dose Ordered Sig/Pily Route PRN Reason Start Time Stop Time Status Last Admin Dose Admin Acetaminophen (Tylenol) 650 mg Q4H PRN ORAL FEVER 04/27/17 07:00 05/27/17 06:59 Albuterol/ Ipratropium (DuoNeb 0.5-3(2.5)mg/3ml) 3 ml EVERY 4 HOURS PRN HHN Shortness of Breath 04/27/17 07:00 05/02/17 06:59 Aripiprazole (Abilify) 20 mg DAILY ORAL 04/27/17 09:00 05/27/17 08:59 04/28/17 09:00 Aspirin (ASA) 162 mg DAILY ORAL 04/27/17 09:00 05/27/17 08:59 04/28/17 08:59 Bupropion HCl (Wellbutrin XL) 150 mg DAILY ORAL 04/27/17 09:00 05/27/17 08:59 04/28/17 08:58 Diltiazem HCl (Cardizem) 10 mg EVERY HOUR PRN IV heart rate more than 120, 04/27/17 07:00 05/27/17 06:59 Divalproex Sodium (Depakote) 1,500 mg DAILY ORAL 04/27/17 09:00 05/27/17 08:59 Enalaprilat (Vasotec) 2.5 mg EVERY 6 HOURS PRN IV sbp more than 160 04/27/17 07:00 05/27/17 06:59 Heparin Sodium (Porcine) (Heparin 5000 units/ml) 5,000 units EVERY 12 HOURS SUBQ 04/27/17 09:00 05/27/17 08:59 Ketorolac Tromethamine (Toradol 30mg) 30 mg Q6HR PRN IV moderate pain ( 4-6) 04/27/17 07:00 05/02/17 06:59 Lorazepam (Ativan) 1 mg Q4H PRN ORAL For Anxiety 04/27/17 20:15 05/04/17 20:14 04/28/17 06:42 Nitroglycerin (Ntg) 0.4 mg Q5M PRN SL Prn Chest Pain 04/27/17 07:00 05/27/17 06:59 Ondansetron HCl (Zofran) 4 mg Q6H PRN IVP Nausea & Vomiting 04/27/17 07:00 05/27/17 06:59 Pantoprazole (Protonix) 40 mg ACBREAKFAST ORAL 04/28/17 06:30 05/27/17 08:59 04/28/17 06:42 Polyethylene Glycol (Miralax) 17 gm DAILYPRN PRN ORAL Constipation 04/27/17 07:00 05/27/17 06:59 Prazosin HCl (Minipress) 2 mg DAILY ORAL 04/28/17 09:00 05/28/17 08:59 04/28/17 08:59 Quetiapine Fumarate (SEROquel) 100 mg BEDTIME ORAL 04/27/17 21:00 05/27/17 20:59 04/27/17 20:07 Sodium Chloride 1,000 ml @ 100 mls/hr Q10H IV 04/27/17 14:30 05/27/17 14:29 04/28/17 10:30 Temazepam (Restoril) 15 mg HSPRN PRN ORAL Insomnia 04/27/17 07:00 05/04/17 06:59 Allergies: Coded Allergies: HALOPERIDOL (Unverified Allergy, Unknown, 07/28/14) MORPHINE (Unverified Allergy, Unknown, 07/28/14) ROS Limited/Unobtainable: No Constitutional: Reports: no symptoms HEENT: Reports: no symptoms Cardiovascular: Reports: chest pain Respiratory: Reports: no symptoms Gastrointestinal/Abdominal: Reports: no symptoms Genitourinary: Reports: no symptoms Neurologic/Psychiatric: Reports: no symptoms Subjective 51 YO M admitted with chest pain. Cover for Int [facility]-Dr Marroquin. Objective Last Vital Signs Date Time Temp Pulse Resp B/P (MAP) Pulse Ox O2 Delivery O2 Flow Rate FiO2 04/28/17 12:00 78 04/28/17 08:00 98.0 20 109/74 99 Room Air General Appearance: WD/WN, no apparent distress, alert EENT: PERRL/EOMI, normal ENT inspection, TMs normal Neck: non-tender, normal alignment, supple, normal inspection Cardiovascular: normal peripheral pulses, normal rate, regular rhythm, no gallop/murmur, no JVD Respiratory/Chest: chest wall non-tender, lungs clear, normal breath sounds, no respiratory distress, no accessory muscle use Abdomen: normal bowel sounds, non tender, soft, no organomegaly, no mass Extremities: normal range of motion Neurologic: [place] sewer II-XII grossly normal, no motor/sensory deficits Skin: normal pigmentation, warm/dry Laboratory Tests Test 04/28/17 04:50 White Blood Count 8.3 K/UL (4.8-10.8) Red Blood Count 3.95 M/UL (4.70-6.10) L Hemoglobin 12.1 G/DL (14.2-18.0) L Hematocrit 37.5 % (42.0-52.0) L Mean Corpuscular Volume 95 FL (80-99) Mean Corpuscular Hemoglobin 30.6 PG (27.0-31.0) Mean Corpuscular Hemoglobin Concent 32.2 G/DL (32.0-36.0) Red Cell Distribution Width 12.8 % (11.6-14.8) Platelet Count 270 K/UL (150-450) Mean Platelet Volume 7.9 FL (6.5-10.1) Neutrophils (%) (Auto) 46.3 % (45.0-75.0) Lymphocytes (%) (Auto) 34.5 % (20.0-45.0) Monocytes (%) (Auto) 17.3 % (1.0-10.0) H Eosinophils (%) (Auto) 1.1 % (0.0-3.0) Basophils (%) (Auto) 0.8 % (0.0-2.0) Prothrombin Time 9.6 SEC (9.30-11.50) Prothromb Time International Ratio 0.9 (0.9-1.1) Activated Partial Thromboplast Time 28 SEC (23-33) Sodium Level 142 mEQ/L (135-145) Potassium Level 3.9 mEQ/L (3.4-4.9) Chloride Level 105 mEQ/L (98-107) Carbon Dioxide Level 26 mEQ/L (20-30) Anion Gap 11 (5-15) Blood Urea Nitrogen 16 mg/dL (7-23) Creatinine 1.0 mg/dL (0.7-1.2) Estimat Glomerular Filtration Rate > 60 mL/min (>60) Glucose Level 84 mg/dL (74-106) Calcium Level 8.5 mg/dL (8.6-10.2) L Phosphorus Level 2.8 mg/dL (2.5-4.8) Magnesium Level 2.1 mg/dL (1.7-2.5) Total Bilirubin 0.4 mg/dL (0.0-1.2) Aspartate Amino Transf (AST/SGOT) 155 U/L (5-40) H Alanine Aminotransferase (ALT/SGPT) 66 U/L (3-41) H Alkaline Phosphatase 54 U/L (40-129) Total Creatine Kinase 3368 U/L (38-174) H Troponin I < 0.30 ng/mL (<=0.30) C-Reactive Protein, Quantitative 2.4 mg/dL (< 0.5) H Total Protein 6.1 g/dL (6.6-8.7) L Albumin 3.6 g/dL (3.5-5.2) Globulin 2.5 g/dL Albumin/Globulin Ratio 1.4 (1.0-2.7) Triglycerides Level 95 mg/dL (< 150) Cholesterol Level 138 mg/dL (< 200) LDL Cholesterol 77 mg/dL (60-99) HDL Cholesterol 42 mg/dL (> 60) Cholesterol/HDL Ratio 3.3 (3.3-4.4) Thyroid Stimulating Hormone (TSH) 1.220 uIU/mL (0.300-4.500) Intake and Output 04/28/17 04/29/17 19:00 07:00 Intake Total 240 ml Balance 240 ml Intake Oral 240 ml Assessment/Plan Problem List: (1) Cocaine abuse (2) Rhabdomyolysis Assessment & Plan: Continue IV fluids. Follow CPK (3) Chest pain Assessment & Plan: ?Cocaine associated coronary artery vasospasm? See Cardiology note. Workup in progress. Status: not improved MELISSA FRANCOIS Apr 28, 2017 14:34
--- NOTE | 2017-04-28 15:15 | Pulmonology Progress Note ---
Assessment/Plan Problems: (1) Acute coronary syndrome (2) Polysubstance abuse (3) ATN (acute tubular necrosis) Assessment/Plan f/u electrolytes check echo f/u cardio recommendations Subjective ROS Limited/Unobtainable: No Constitutional: Reports: no symptoms HEENT: Repors: no symptoms Respiratory: Reports: no symptoms Cardiovascular: Reports: no symptoms Allergies: Coded Allergies: HALOPERIDOL (Unverified Allergy, Unknown, 07/28/14) MORPHINE (Unverified Allergy, Unknown, 07/28/14) Objective Last 24 Hour Vital Signs Date Time Temp Pulse Resp B/P (MAP) Pulse Ox O2 Delivery O2 Flow Rate FiO2 04/28/17 12:00 78 04/28/17 08:00 98.0 90 20 109/74 99 Room Air 04/28/17 08:00 89 04/28/17 07:50 98 16 Room Air 04/28/17 04:00 97.7 84 20 110/67 96 Room Air 04/28/17 04:00 92 04/28/17 00:00 99 04/27/17 20:39 97.7 97 18 103/62 94 Room Air 04/27/17 20:00 89 04/27/17 19:00 97 18 Room Air 04/27/17 16:59 98.0 98 18 111/65 98 Room Air 04/27/17 16:00 90 Intake and Output 04/28/17 04/29/17 19:00 07:00 Intake Total 240 ml Balance 240 ml Intake Oral 240 ml General Appearance: WD/WN HEENT: normocephalic, atraumatic Respiratory/Chest: chest wall non-tender, lungs clear Cardiovascular: normal peripheral pulses, normal rate, no JVD Abdomen: soft, non tender Genitourinary: normal external genitalia Skin: no rash Laboratory Tests 04/28/17 04:50: White Blood Count 8.3, Red Blood Count 3.95L, Hemoglobin 12.1L, Hematocrit 37.5L , Mean Corpuscular Volume 95, Mean Corpuscular Hemoglobin 30.6, Mean Corpuscular Hemoglobin Concent 32.2, Red Cell Distribution Width 12.8, Platelet Count 270, Mean Platelet Volume 7.9, Neutrophils (%) (Auto) 46.3, Lymphocytes (% ) (Auto) 34.5, Monocytes (%) (Auto) 17.3H, Eosinophils (%) (Auto) 1.1, Basophils (%) (Auto) 0.8, Prothrombin Time 9.6, Prothromb Time International Ratio 0.9, Activated Partial Thromboplast Time 28, Sodium Level 142, Potassium Level 3.9, Chloride Level 105, Carbon Dioxide Level 26, Anion Gap 11, Blood Urea Nitrogen 16, Creatinine 1.0, Estimat Glomerular Filtration Rate > 60, Glucose Level 84, Calcium Level 8.5L, Phosphorus Level 2.8, Magnesium Level 2.1 , Total Bilirubin 0.4, Aspartate Amino Transf (AST/SGOT) 155H, Alanine Aminotransferase (ALT/SGPT) 66H, Alkaline Phosphatase 54, Total Creatine Kinase 3368H, Troponin I < 0.30, C-Reactive Protein, Quantitative 2.4H, Total Protein 6.1L, Albumin 3.6, Globulin 2.5, Albumin/Globulin Ratio 1.4, Triglycerides Level 95, Cholesterol Level 138, LDL Cholesterol 77, HDL Cholesterol 42, Cholesterol/HDL Ratio 3.3, Thyroid Stimulating Hormone (TSH) 1.220 Current Medications Medications (Trade) Dose Ordered Sig/Pily Route PRN Reason Start Time Stop Time Status Last Admin Dose Admin Acetaminophen (Tylenol) 650 mg Q4H PRN ORAL FEVER 04/27/17 07:00 05/27/17 06:59 Albuterol/ Ipratropium (DuoNeb 0.5-3(2.5)mg/3ml) 3 ml EVERY 4 HOURS PRN HHN Shortness of Breath 04/27/17 07:00 05/02/17 06:59 Aripiprazole (Abilify) 20 mg DAILY ORAL 04/27/17 09:00 05/27/17 08:59 04/28/17 09:00 Aspirin (ASA) 162 mg DAILY ORAL 04/27/17 09:00 05/27/17 08:59 04/28/17 08:59 Bupropion HCl (Wellbutrin XL) 150 mg DAILY ORAL 04/27/17 09:00 05/27/17 08:59 04/28/17 08:58 Diltiazem HCl (Cardizem) 10 mg EVERY HOUR PRN IV heart rate more than 120, 04/27/17 07:00 05/27/17 06:59 Divalproex Sodium (Depakote) 1,500 mg DAILY ORAL 04/27/17 09:00 05/27/17 08:59 Enalaprilat (Vasotec) 2.5 mg EVERY 6 HOURS PRN IV sbp more than 160 04/27/17 07:00 05/27/17 06:59 Heparin Sodium (Porcine) (Heparin 5000 units/ml) 5,000 units EVERY 12 HOURS SUBQ 04/27/17 09:00 05/27/17 08:59 Ketorolac Tromethamine (Toradol 30mg) 30 mg Q6HR PRN IV moderate pain ( 4-6) 04/27/17 07:00 05/02/17 06:59 Lorazepam (Ativan) 1 mg Q4H PRN ORAL For Anxiety 04/27/17 20:15 05/04/17 20:14 04/28/17 06:42 Nitroglycerin (Ntg) 0.4 mg Q5M PRN SL Prn Chest Pain 04/27/17 07:00 05/27/17 06:59 Ondansetron HCl (Zofran) 4 mg Q6H PRN IVP Nausea & Vomiting 04/27/17 07:00 05/27/17 06:59 Pantoprazole (Protonix) 40 mg ACBREAKFAST ORAL 04/28/17 06:30 05/27/17 08:59 04/28/17 06:42 Polyethylene Glycol (Miralax) 17 gm DAILYPRN PRN ORAL Constipation 04/27/17 07:00 05/27/17 06:59 Prazosin HCl (Minipress) 2 mg DAILY ORAL 04/28/17 09:00 05/28/17 08:59 04/28/17 08:59 Quetiapine Fumarate (SEROquel) 100 mg BEDTIME ORAL 04/27/17 21:00 05/27/17 20:59 04/27/17 20:07 Sodium Chloride 1,000 ml @ 100 mls/hr Q10H IV 04/27/17 14:30 05/27/17 14:29 04/28/17 10:30 Temazepam (Restoril) 15 mg HSPRN PRN ORAL Insomnia 04/27/17 07:00 05/04/17 06:59 CORAL WHITT Apr 28, 2017 15:15
[2017-04-28 17:06] VITALS: BP 118/86
[2017-04-28 20:00] VITALS: BP 119/75
[2017-04-29] VITALS: BP 126/86
[2017-04-29 04:00] VITALS: BP 112/79
[2017-04-29 07:50] VITALS: BP 147/99
[2017-04-29 08:10] LABS: BASOPHILS % (AUTO) 0.9 % (0.0-2.0); EOSINOPHILS % (AUTO) 0.8 % (0.0-3.0); MEAN CORPUSCULAR HEMOGLOBIN 30.2 PG (27.0-31.0); MEAN CORPUSCULAR HGB CONC 31.4 G/DL (32.0-36.0); MEAN CORPUSCULAR VOLUME 96 FL (80-99); MEAN PLATELET VOLUME 8.3 FL (6.5-10.1); MONOCYTES % (AUTO) 11.3 % (1.0-10.0); PLATELET COUNT 311 K/UL (150-450); RED BLOOD COUNT 4.31 M/UL (4.70-6.10); RED CELL DISTRIBUTION WIDTH 12.5 % (11.6-14.8); WHITE BLOOD COUNT 7.9 K/UL (4.8-10.8)
[2017-04-29 08:32] LABS: TROPONIN I < 0.30 ng/mL (<=0.30)
[2017-04-29 08:55] LABS: ANION GAP 10 (5-15); CALCIUM 9.2 mg/dL (8.6-10.2); CARBON DIOXIDE 28 mEQ/L (20-30); CHLORIDE 105 mEQ/L (98-107); CREATININE 0.9 mg/dL (0.7-1.2); GLOMERULAR FILTRATION RATE > 60 mL/min (>60); HEMOLYSIS 6; POTASSIUM 4.6 mEQ/L (3.4-4.9); SODIUM 143 mEQ/L (135-145)
[2017-04-29] MEDS: BuPROPion XL 150mg tab ORAL SCH (08:59)
[2017-04-29] MEDS: ARIPiprazole 10mg tab ORAL SCH (09:00)
[2017-04-29] MEDS: Heparin 5000 units/ml inj SUBQ SCH (09:00)
[2017-04-29] MEDS: Depakote 500mg tab ORAL SCH (09:00)
[2017-04-29] MEDS: Aspirin Baby 81mg ORAL SCH (09:04)
[2017-04-29 11:58] VITALS: BP 120/85
--- NOTE | 2017-04-29 12:27 | Pulmonology Progress Note ---
Assessment/Plan Problems: (1) Acute coronary syndrome (2) Polysubstance abuse (3) ATN (acute tubular necrosis) Assessment/Plan f/u electrolytes check echo f/u cardio recommendations dc home Subjective ROS Limited/Unobtainable: No Constitutional: Reports: no symptoms Respiratory: Reports: no symptoms Cardiovascular: Reports: no symptoms Gastrointestinal/Abdominal: Reports: no symptoms Genitourinary: Reports: no symptoms Allergies: Coded Allergies: HALOPERIDOL (Unverified Allergy, Unknown, 07/28/14) MORPHINE (Unverified Allergy, Unknown, 07/28/14) Objective Last 24 Hour Vital Signs Date Time Temp Pulse Resp B/P (MAP) Pulse Ox O2 Delivery O2 Flow Rate FiO2 04/29/17 11:58 97.4 97 20 120/85 98 Room Air 04/29/17 08:23 95 04/29/17 08:12 94 18 Room Air 04/29/17 07:50 97.7 91 20 147/99 98 Room Air 04/29/17 04:35 99 18 Room Air 04/29/17 04:00 98.2 87 20 112/79 100 Room Air 04/29/17 04:00 85 04/29/17 00:00 91 04/29/17 00:00 97.7 104 20 126/86 100 Room Air 04/28/17 20:00 91 04/28/17 20:00 98.2 95 20 119/75 98 Room Air 04/28/17 17:06 98.0 90 22 118/86 98 Room Air 04/28/17 16:00 91 Intake and Output 04/29/17 04/30/17 19:00 07:00 Intake Total 845 ml Output Total 900 ml Balance -55 ml Intake Oral 345 ml IV Total 500 ml Output Urine Total 900 ml # Voids 1 # Bowel Movements 1 General Appearance: WD/WN HEENT: normocephalic, atraumatic Respiratory/Chest: chest wall non-tender, lungs clear Cardiovascular: normal peripheral pulses, regular rhythm Abdomen: normal bowel sounds, no organomegaly Microbiology Date/Time Source Procedure Growth Status 04/27/17 07:20 Nasal Nares MRSA Culture - Final NO METHICILLIN RESISTANT STAPH AUREUS... Complete 04/27/17 07:20 Rectum VRE Culture - Final NO VANCOMYCIN RESISTANT ENTEROCOCCUS ... Complete Laboratory Tests 04/29/17 07:25: White Blood Count 7.9, Red Blood Count 4.31L, Hemoglobin 13.0L, Hematocrit 41.4L , Mean Corpuscular Volume 96, Mean Corpuscular Hemoglobin 30.2, Mean Corpuscular Hemoglobin Concent 31.4L, Red Cell Distribution Width 12.5, Platelet Count 311, Mean Platelet Volume 8.3, Neutrophils (%) (Auto) 60.0, Lymphocytes (%) (Auto) 27.0, Monocytes (%) (Auto) 11.3H, Eosinophils (%) (Auto) 0.8, Basophils (%) (Auto) 0.9, Sodium Level 143, Potassium Level 4.6, Chloride Level 105, Carbon Dioxide Level 28, Anion Gap 10, Blood Urea Nitrogen 7, Creatinine 0.9, Estimat Glomerular Filtration Rate > 60, Glucose Level 106, Calcium Level 9.2, Total Creatine Kinase 1203H, Troponin I < 0.30 Current Medications Medications (Trade) Dose Ordered Sig/Pily Route PRN Reason Start Time Stop Time Status Last Admin Dose Admin Acetaminophen (Tylenol) 650 mg Q4H PRN ORAL FEVER 04/27/17 07:00 05/27/17 06:59 Albuterol/ Ipratropium (DuoNeb 0.5-3(2.5)mg/3ml) 3 ml EVERY 4 HOURS PRN HHN Shortness of Breath 04/27/17 07:00 05/02/17 06:59 Aripiprazole (Abilify) 20 mg DAILY ORAL 04/27/17 09:00 05/27/17 08:59 04/29/17 09:00 Aspirin (ASA) 162 mg DAILY ORAL 04/27/17 09:00 05/27/17 08:59 04/29/17 09:04 Bupropion HCl (Wellbutrin XL) 150 mg DAILY ORAL 04/27/17 09:00 05/27/17 08:59 04/29/17 08:59 Diltiazem HCl (Cardizem) 10 mg EVERY HOUR PRN IV heart rate more than 120, 04/27/17 07:00 05/27/17 06:59 Divalproex Sodium (Depakote) 1,500 mg DAILY ORAL 04/27/17 09:00 05/27/17 08:59 Enalaprilat (Vasotec) 2.5 mg EVERY 6 HOURS PRN IV sbp more than 160 04/27/17 07:00 05/27/17 06:59 Heparin Sodium (Porcine) (Heparin 5000 units/ml) 5,000 units EVERY 12 HOURS SUBQ 04/27/17 09:00 05/27/17 08:59 Ketorolac Tromethamine (Toradol 30mg) 30 mg Q6HR PRN IV moderate pain ( 4-6) 04/27/17 07:00 05/02/17 06:59 Lorazepam (Ativan) 1 mg Q4H PRN ORAL For Anxiety 04/27/17 20:15 05/04/17 20:14 04/28/17 17:53 Nitroglycerin (Ntg) 0.4 mg Q5M PRN SL Prn Chest Pain 04/27/17 07:00 05/27/17 06:59 Ondansetron HCl (Zofran) 4 mg Q6H PRN IVP Nausea & Vomiting 04/27/17 07:00 05/27/17 06:59 Pantoprazole (Protonix) 40 mg ACBREAKFAST ORAL 04/28/17 06:30 05/27/17 08:59 04/29/17 06:35 Polyethylene Glycol (Miralax) 17 gm DAILYPRN PRN ORAL Constipation 04/27/17 07:00 05/27/17 06:59 Prazosin HCl (Minipress) 2 mg DAILY ORAL 04/28/17 09:00 05/28/17 08:59 04/29/17 09:00 Quetiapine Fumarate (SEROquel) 100 mg BEDTIME ORAL 04/27/17 21:00 05/27/17 20:59 04/28/17 20:59 Sodium Chloride 1,000 ml @ 100 mls/hr Q10H IV 04/27/17 14:30 05/27/17 14:29 04/29/17 06:36 Temazepam (Restoril) 15 mg HSPRN PRN ORAL Insomnia 04/27/17 07:00 05/04/17 06:59 CORAL WHITT Apr 29, 2017 12:27
--- NOTE | 2017-04-29 13:01 | Internal Med Progress Note ---
Subjective Date of Service: Apr 29, 2017 Physician Name LashellMelissa Attending Physician Joey Marroquin MD Current Medications Medications (Trade) Dose Ordered Sig/Pily Route PRN Reason Start Time Stop Time Status Last Admin Dose Admin Acetaminophen (Tylenol) 650 mg Q4H PRN ORAL FEVER 04/27/17 07:00 05/27/17 06:59 Albuterol/ Ipratropium (DuoNeb 0.5-3(2.5)mg/3ml) 3 ml EVERY 4 HOURS PRN HHN Shortness of Breath 04/27/17 07:00 05/02/17 06:59 Aripiprazole (Abilify) 20 mg DAILY ORAL 04/27/17 09:00 05/27/17 08:59 04/29/17 09:00 Aspirin (ASA) 162 mg DAILY ORAL 04/27/17 09:00 05/27/17 08:59 04/29/17 09:04 Bupropion HCl (Wellbutrin XL) 150 mg DAILY ORAL 04/27/17 09:00 05/27/17 08:59 04/29/17 08:59 Diltiazem HCl (Cardizem) 10 mg EVERY HOUR PRN IV heart rate more than 120, 04/27/17 07:00 05/27/17 06:59 Divalproex Sodium (Depakote) 1,500 mg DAILY ORAL 04/27/17 09:00 05/27/17 08:59 Enalaprilat (Vasotec) 2.5 mg EVERY 6 HOURS PRN IV sbp more than 160 04/27/17 07:00 05/27/17 06:59 Heparin Sodium (Porcine) (Heparin 5000 units/ml) 5,000 units EVERY 12 HOURS SUBQ 04/27/17 09:00 05/27/17 08:59 Ketorolac Tromethamine (Toradol 30mg) 30 mg Q6HR PRN IV moderate pain ( 4-6) 04/27/17 07:00 05/02/17 06:59 Lorazepam (Ativan) 1 mg Q4H PRN ORAL For Anxiety 04/27/17 20:15 05/04/17 20:14 04/28/17 17:53 Nitroglycerin (Ntg) 0.4 mg Q5M PRN SL Prn Chest Pain 04/27/17 07:00 05/27/17 06:59 Ondansetron HCl (Zofran) 4 mg Q6H PRN IVP Nausea & Vomiting 04/27/17 07:00 05/27/17 06:59 Pantoprazole (Protonix) 40 mg ACBREAKFAST ORAL 04/28/17 06:30 05/27/17 08:59 04/29/17 06:35 Polyethylene Glycol (Miralax) 17 gm DAILYPRN PRN ORAL Constipation 04/27/17 07:00 05/27/17 06:59 Prazosin HCl (Minipress) 2 mg DAILY ORAL 04/28/17 09:00 05/28/17 08:59 04/29/17 09:00 Quetiapine Fumarate (SEROquel) 100 mg BEDTIME ORAL 04/27/17 21:00 05/27/17 20:59 04/28/17 20:59 Sodium Chloride 1,000 ml @ 100 mls/hr Q10H IV 04/27/17 14:30 05/27/17 14:29 04/29/17 06:36 Temazepam (Restoril) 15 mg HSPRN PRN ORAL Insomnia 04/27/17 07:00 05/04/17 06:59 Allergies: Coded Allergies: HALOPERIDOL (Unverified Allergy, Unknown, 07/28/14) MORPHINE (Unverified Allergy, Unknown, 07/28/14) ROS Limited/Unobtainable: No Constitutional: Reports: no symptoms HEENT: Reports: no symptoms Cardiovascular: Reports: no symptoms Respiratory: Reports: no symptoms Gastrointestinal/Abdominal: Reports: no symptoms Genitourinary: Reports: no symptoms Neurologic/Psychiatric: Reports: no symptoms Subjective 51 YO M admitted with chest pain. Cover for Int [facility] Marroquin. Objective Last Vital Signs Date Time Temp Pulse Resp B/P (MAP) Pulse Ox O2 Delivery O2 Flow Rate FiO2 04/29/17 12:46 88 04/29/17 11:58 97.4 20 120/85 98 Room Air Laboratory Tests Test 04/29/17 07:25 White Blood Count 7.9 K/UL (4.8-10.8) Red Blood Count 4.31 M/UL (4.70-6.10) L Hemoglobin 13.0 G/DL (14.2-18.0) L Hematocrit 41.4 % (42.0-52.0) L Mean Corpuscular Volume 96 FL (80-99) Mean Corpuscular Hemoglobin 30.2 PG (27.0-31.0) Mean Corpuscular Hemoglobin Concent 31.4 G/DL (32.0-36.0) L Red Cell Distribution Width 12.5 % (11.6-14.8) Platelet Count 311 K/UL (150-450) Mean Platelet Volume 8.3 FL (6.5-10.1) Neutrophils (%) (Auto) 60.0 % (45.0-75.0) Lymphocytes (%) (Auto) 27.0 % (20.0-45.0) Monocytes (%) (Auto) 11.3 % (1.0-10.0) H Eosinophils (%) (Auto) 0.8 % (0.0-3.0) Basophils (%) (Auto) 0.9 % (0.0-2.0) Sodium Level 143 mEQ/L (135-145) Potassium Level 4.6 mEQ/L (3.4-4.9) Chloride Level 105 mEQ/L (98-107) Carbon Dioxide Level 28 mEQ/L (20-30) Anion Gap 10 (5-15) Blood Urea Nitrogen 7 mg/dL (7-23) Creatinine 0.9 mg/dL (0.7-1.2) Estimat Glomerular Filtration Rate > 60 mL/min (>60) Glucose Level 106 mg/dL (74-106) Calcium Level 9.2 mg/dL (8.6-10.2) Total Creatine Kinase 1203 U/L (38-174) H Troponin I < 0.30 ng/mL (<=0.30) Microbiology Date/Time Source Procedure Growth Status 04/27/17 07:20 Nasal Nares MRSA Culture - Final NO METHICILLIN RESISTANT STAPH AUREUS... Complete 04/27/17 07:20 Rectum VRE Culture - Final NO VANCOMYCIN RESISTANT ENTEROCOCCUS ... Complete Intake and Output 04/29/17 04/30/17 19:00 07:00 Intake Total 845 ml Output Total 900 ml Balance -55 ml Intake Oral 345 ml IV Total 500 ml Output Urine Total 900 ml # Voids 1 # Bowel Movements 1 Objective General Appearance: WD/WN, no apparent distress, alert EENT: PERRL/EOMI, normal ENT inspection, TMs normal Neck: non-tender, normal alignment, supple, normal inspection Cardiovascular: normal peripheral pulses, normal rate, regular rhythm, no gallop/murmur, no JVD Respiratory/Chest: chest wall non-tender, lungs clear, normal breath sounds, no respiratory distress, no accessory muscle use Abdomen: normal bowel sounds, non tender, soft, no organomegaly, no mass Extremities: normal range of motion 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 Continue IV fluids. Follow CPK (3) Chest pain Assessment & Plan: ?Cocaine associated coronary artery vasospasm? See Cardiology note. Workup in progress. MELISSA FRANCOIS Apr 29, 2017 13:01
--- NOTE | 2017-04-29 18:02 | Consultation ---
History of Present Illness General Date patient seen: Apr 27, 2017 Chief Complaint: Chest Pain Present Illness HPI 51-year-old man with past medical history of depression and cocaine abuse, who was presented to the hospital complaining about chest pain over four hours prior to admission, got into altercation with his , snort cocaine, and localized substernal chest pain. the pt was irritable and depressed denied si. Allergies: Coded Allergies: HALOPERIDOL (Unverified Allergy, Unknown, 07/28/14) MORPHINE (Unverified Allergy, Unknown, 07/28/14) Medication History Scheduled Aripiprazole* (Abilify*), 20 MG ORAL DAILY, (Reported) Bupropion Hcl* (Wellbutrin Xl*), 150 MG ORAL DAILY, (Reported) Divalproex Sodium (Depakote), 1,500 MG PO DAILY, (Reported) Dorzolamide Hcl* (Trusopt*), 1 DROP BOTH EYES TID, (Reported) Quetiapine Fumarate* (Seroquel*), 100 MG ORAL BEDTIME, (Reported) Timolol Maleate/Pf (Timoptic 0.5% Ocudose Drop), 1 EACH OP BID, (Reported) Miscellaneous Medications Naphazoline Hcl (Naphazoline Hcl), 15 ML OP, (Reported) Discontinued Medications Nystatin (Nystop), 15 GM EXT, (Reported) Discontinued Reason: Therapy completed Prazosin Hcl* (Minipress*), 20 MG PO, (Reported) Discontinued Reason: Medication dose changed Quetiapine Fumarate* (Seroquel*), 100 MG ORAL HS, (Reported) Discontinued Reason: Therapy completed Unable to Obtain Medications (Unable To Obtain Meds), (Reported) Discontinued Reason: Therapy completed Patient History Limited by: medical condition History Provided By: Patient, Medical Record, PMD Healthcare decision maker Resuscitation status Full Code Advanced Directive on File Past Medical/Surgical History Past Medical/Surgical History: (1) Hemoptysis (2) Cough (3) Depression (4) Umbilical hernia (5) Glaucoma (6) Pneumonia (7) Pneumonia (8) Suicidal ideation (9) Suicidal ideation (10) Suicidal ideation (11) Inguinal hernia, right (12) Chest pain of uncertain etiology (13) Renal failure (ARF), acute on chronic (14) Polysubstance abuse (15) ATN (acute tubular necrosis) Review of Systems Constitutional: Reports: malaise, weakness Psychiatric: Reports: anxiety, depressed feelings, emotional problems Physical Exam General Appearance: no apparent distress, alert, overweight Neurologic: alert, oriented x 3, responsive, depressed affect Last 24 Hour Vital Signs Date Time Temp Pulse Resp B/P (MAP) Pulse Ox O2 Delivery O2 Flow Rate FiO2 04/29/17 12:46 88 04/29/17 11:58 97.4 97 20 120/85 98 Room Air 04/29/17 08:23 95 04/29/17 08:12 94 18 Room Air 04/29/17 07:50 97.7 91 20 147/99 98 Room Air 04/29/17 04:35 99 18 Room Air 04/29/17 04:00 98.2 87 20 112/79 100 Room Air 04/29/17 04:00 85 04/29/17 00:00 91 04/29/17 00:00 97.7 104 20 126/86 100 Room Air 04/28/17 20:00 91 04/28/17 20:00 98.2 95 20 119/75 98 Room Air Intake and Output 04/29/17 04/30/17 19:00 07:00 Intake Total 1345 ml Output Total 1100 ml Balance 245 ml Intake Oral 845 ml IV Total 500 ml Output Urine Total 1100 ml # Voids 3 # Bowel Movements 1 Laboratory Tests Test 04/29/17 07:25 White Blood Count 7.9 K/UL (4.8-10.8) Red Blood Count 4.31 M/UL (4.70-6.10) L Hemoglobin 13.0 G/DL (14.2-18.0) L Hematocrit 41.4 % (42.0-52.0) L Mean Corpuscular Volume 96 FL (80-99) Mean Corpuscular Hemoglobin 30.2 PG (27.0-31.0) Mean Corpuscular Hemoglobin Concent 31.4 G/DL (32.0-36.0) L Red Cell Distribution Width 12.5 % (11.6-14.8) Platelet Count 311 K/UL (150-450) Mean Platelet Volume 8.3 FL (6.5-10.1) Neutrophils (%) (Auto) 60.0 % (45.0-75.0) Lymphocytes (%) (Auto) 27.0 % (20.0-45.0) Monocytes (%) (Auto) 11.3 % (1.0-10.0) H Eosinophils (%) (Auto) 0.8 % (0.0-3.0) Basophils (%) (Auto) 0.9 % (0.0-2.0) Sodium Level 143 mEQ/L (135-145) Potassium Level 4.6 mEQ/L (3.4-4.9) Chloride Level 105 mEQ/L (98-107) Carbon Dioxide Level 28 mEQ/L (20-30) Anion Gap 10 (5-15) Blood Urea Nitrogen 7 mg/dL (7-23) Creatinine 0.9 mg/dL (0.7-1.2) Estimat Glomerular Filtration Rate > 60 mL/min (>60) Glucose Level 106 mg/dL (74-106) Calcium Level 9.2 mg/dL (8.6-10.2) Total Creatine Kinase 1203 U/L (38-174) H Troponin I < 0.30 ng/mL (<=0.30) Height (Feet): 5 Height (Inches): 10.00 Weight (Pounds): 200 Assessment/Plan Status: stable Assessment/Plan cocaine abuse mdd -no si -cont current meds -Jose Crowley M.D. Apr 29, 2017 18:02
--- NOTE | 2017-04-29 18:03 | General Progress Note ---
Assessment/Plan Status: stable, progressing Subjective Date patient seen: Apr 28, 2017 Constitutional: Reports: malaise Neurologic/Psychiatric: Reports: anxiety, depressed, emotional problems Allergies: Coded Allergies: HALOPERIDOL (Unverified Allergy, Unknown, 07/28/14) MORPHINE (Unverified Allergy, Unknown, 07/28/14) Objective Last 24 Hour Vital Signs Date Time Temp Pulse Resp B/P (MAP) Pulse Ox O2 Delivery O2 Flow Rate FiO2 04/29/17 12:46 88 04/29/17 11:58 97.4 97 20 120/85 98 Room Air 04/29/17 08:23 95 04/29/17 08:12 94 18 Room Air 04/29/17 07:50 97.7 91 20 147/99 98 Room Air 04/29/17 04:35 99 18 Room Air 04/29/17 04:00 98.2 87 20 112/79 100 Room Air 04/29/17 04:00 85 04/29/17 00:00 91 04/29/17 00:00 97.7 104 20 126/86 100 Room Air 04/28/17 20:00 91 04/28/17 20:00 98.2 95 20 119/75 98 Room Air Intake and Output 04/29/17 04/30/17 19:00 07:00 Intake Total 1345 ml Output Total 1100 ml Balance 245 ml Intake Oral 845 ml IV Total 500 ml Output Urine Total 1100 ml # Voids 3 # Bowel Movements 1 Laboratory Tests 04/29/17 07:25: White Blood Count 7.9, Red Blood Count 4.31L, Hemoglobin 13.0L, Hematocrit 41.4L , Mean Corpuscular Volume 96, Mean Corpuscular Hemoglobin 30.2, Mean Corpuscular Hemoglobin Concent 31.4L, Red Cell Distribution Width 12.5, Platelet Count 311, Mean Platelet Volume 8.3, Neutrophils (%) (Auto) 60.0, Lymphocytes (%) (Auto) 27.0, Monocytes (%) (Auto) 11.3H, Eosinophils (%) (Auto) 0.8, Basophils (%) (Auto) 0.9, Sodium Level 143, Potassium Level 4.6, Chloride Level 105, Carbon Dioxide Level 28, Anion Gap 10, Blood Urea Nitrogen 7, Creatinine 0.9, Estimat Glomerular Filtration Rate > 60, Glucose Level 106, Calcium Level 9.2, Total Creatine Kinase 1203H, Troponin I < 0.30 Height (Feet): 5 Height (Inches): 10.00 Weight (Pounds): 200 General Appearance: no apparent distress, alert, overweight Neurologic: alert, oriented x 3, responsive, depressed affect Jose Meade M.D. Apr 29, 2017 18:03
--- NOTE | 2017-04-29 19:36 | Cardiology Report ---
APPROVED REPORT EKG Measurement Heart [id number] Sinus tachycardia Otherwise normal ECG
--- NOTE | 2017-04-30 16:22 | Discharge Summary ---
Discharge Summary Hospital Course Date of Admission Apr 27, 2017 at 05:29 Date of Discharge Apr 29, 2017 at 15:00 Admitting Diagnosis ACS HPI Hardy Hood is a 51 year old male who was admitted on Apr 27, 2017 at 05:29 for Acute Coronary Syndrome,Polysubstance Abuse Hospital Course dc summary #[id number] Discharge Medications Continued Medications: Aripiprazole* (Abilify*) 20 Mg Tablet 20 MG ORAL DAILY, TAB Bupropion Hcl* (Wellbutrin Xl*) 150 Mg Tab.er.24h 150 MG ORAL DAILY, TAB 0 Refills Divalproex Sodium (Depakote) 500 Mg Tablet.dr 1500 MG PO DAILY, TAB Dorzolamide Hcl* (Trusopt*) 10 Ml Drops 1 DROP BOTH EYES TID, #1 ML 0 Refills Naphazoline Hcl (Naphazoline Hcl) 15 Ml Drops 15 ML OP, ML Quetiapine Fumarate* (Seroquel*) 100 Mg Tablet 100 MG ORAL BEDTIME, TAB Timolol Maleate/Pf (Timoptic 0.5% Ocudose Drop) 1 Each Droperette 1 EACH OP BID Discharge Condition Upon Discharge: stable Discharge Disposition Patient was discharged to Home () Discharge Diagnoses: Discharge Instructions Discharge Instructions Special Instructions I have been assigned to complete a D/C Summary on this account. I was not involved in the patient management Lilly East NP (Vanchtein) Apr 30, 2017 16:22
--- NOTE | 2017-05-02 08:46 | Discharge Summary 2 SIG ---
DATE OF ADMISSION: 04/27/2017 DATE OF DISCHARGE: 04/29/2017 Reason For Admission: 51-year-old male with past medical history significant for depression and substance abuse, presented with chest pain for four hours. The patient stated that chest pain started after he got into verbal altercation with his snorting cocaine. Chest pain was localized in the substernal area. No radiation to back or other area. Chest pain was described as sharp, gradual in onset and constant, occurring at rest. The patient also complained of mild shortness of breath. He denied palpitations, diaphoresis, nausea, or vomiting. He reported drinking small amount of alcohol that day but denied daily alcohol consumption. He denied fever, chills, cough, or abdominal pain. He denied trauma. The patient never had a stress test or cardiac catheterization. The patient received 162 mg of aspirin by paramedics and given 2 nitroglycerin spray, which provided some relief from chest pain. Laboratory workup revealed evidence of acute renal failure with BUN- 27 and creatinine -1.3. CK -17,324. Urine toxicology screen was positive for cocaine and marijuana. Alcohol level -11. Troponin was negative. No leukocytosis. EKG revealed no acute ischemic changes, sinus rhythm. The patient was admitted for further management. ADMITTING DIAGNOSES: 1. Chest pain, 2. Rule out acute coronary syndrome. 3. Polysubstance abuse. 4. Acute renal failure. 5. Rhabdomyolysis. Hospital Stay: The patient was admitted to telemetry floor. Cardiology, Pulmonology and Psychiatric consultations were requested. Software Deployment Engineer seen and evaluated the patient. Serial troponin x4 were negative. EKG revealed no acute ischemic changes. The patient was ruled out for acute myocardial infarction. Echocardiogram revealed ejection fraction of 60% to 65% and moderate left ventricular hypertrophy. Software Deployment Engineer decided not to pursue stress test doubting that it will add something else to understanding of patient problem. According to cardiac cath tech, chest pain was recurrent and cocaine induced. The patient was counseled on abstinence from illicit street drugs. The patient was provided with IV hydration. Renal parameters were closely monitored along with CK. CK down from 17,324 to 1203 and renal parameters down to normal. BUN from 23 down to 7 and creatinine from 1.3 down to 0.9. Rhabdomyolysis with significant improvement. Initially elevated AST and ALT. AST -419 and ALT -106, possibly related to rhabdomyolysis. LFT were trending down along with CK . Chest x-ray revealed no acute cardiopulmonary pathology. Pulse oximetry was stable on room air. Psychiatrist seen and evaluated the patient and diagnosed him with major depressive disorder, but stated that the patient had no suicidal ideation. Psychiatrist recommended to continue current medication regimen for depression. The patient was stable for discharge. FINAL DIAGNOSES: 1. Recurrent cocaine induced chest pain. 2. Polysubstance abuse (cocaine and marijuana). 3. Acute renal failure, resolved. 4. Rhabdomyolysis, improved. 5. Transaminitis, improved (Likely related to rhabdomyolysis). 7. Major depressive disorder. DISCHARGE MEDICATIONS: See medication reconciliation list. Discharge Instructions: The patient was discharged home. Follow up with primary medical doctor. Joey Marroquin M.D. I have been assigned to dictate discharge summary on this account and I was not involved in the patient's management. Lilly Carcamomartha NSay DR: HARDY JOB#: [id number] CC: ALEXANDER
--- NOTE | 2017-05-20 17:42 | Cardiology Report ---
APPROVED REPORT EKG Measurement Heart [id number] Normal sinus rhythm Normal ECG
== END 2017-04-29 15:00 | disposition home or self-care (01) | DRG 557 ==
LOC: EDBD 04:10 → EMR 04:27 → 2E 05:29 → EDBEDREQ 06:36
DX: M62.82 Rhabdomyolysis (principal); N17.0 Acute kidney failure with tubular necrosis; I24.9 Acute ischemic heart disease, unspecified; F14.10 Cocaine abuse, uncomplicated; F12.10 Cannabis abuse, uncomplicated; F32.9 Major depressive disorder, single episode, unspecified
CPT/HCPCS: 36415; 71010; 80048; 80053; 80061; 80300; 80329; 82550; 82553; 83735; 83880; 84100; 84443; 84484; 85025; 85610; 85730; 86140; 87081; 93005; 93306; 94664; 99285

== ENCOUNTER 2019-02-05 09:09 | Inpatient (IN) | payer OTHER ==
[~2019-02-05] VITALS: Ht 177.8 cm; Wt 86.2 kg
[~2019-02-05 09:09] MED LIST changes: +SEROQUEL100 MG ORAL; +WELLBUTRIN XL150 MG ORAL
[2019-02-05 09:20] VITALS: BP 124/79
--- NOTE | 2019-02-05 09:20 | NUR ---
ED Nurse Note: MINI COG INITIATED AT TRIAGE,
--- NOTE | 2019-02-05 09:20 | NUR ---
ED Nurse Note: pt was brought in by ambulance c/o suicidal intent, pt stated he was picked on a home called [employer] [facility] [place]. pt stated his was to take all his seroquel 100mg tablet to hurt himself. pt verbalizes depression from a divorse in august and being far away from his mom since 1995. pt stated he has history of attempting to suicide in the past by doind the same thing. pt stated earlier this morning is the last time he took cocaine and has not been going to work since sunday. pt work in [employer]. pt was seen by paola. pt able to give urine sample, iv stablish on pt left ac and ivf started. will continuue to monitor.
--- NOTE | 2019-02-05 09:22 | Emergency Room Report ---
History of Present Illness General Chief Complaint: Behavioral Complaint Source: Patient Present Illness HPI 53 year old male past history of hypertension, hyperlipidemia, polysubstance use , depression SI 4 years in the past, with acute suicidal ideations over the past 2 days, worsened with drug use, he is currently off his psychiatric medications Wellbutrin and Abilify, no alleviating factors, no access to weapons patient endorses only a cough, no chest pain, shortness of breath, no nausea vomiting, no fever no chills, no homicidal ideations, only suicidal ideations Allergies: Coded Allergies: HALOPERIDOL (Unverified Allergy, Unknown, 07/28/14) MORPHINE (Unverified Allergy, Unknown, 07/28/14) Patient History Past Medical History: see triage record, HTN Past Surgical History: other - Repair, SBO Social History: Reports: alcohol use, drug use - cocaine Reviewed Nursing Documentation: PMH: Agreed; PSxH: Agreed Nursing Documentation-PMH Past Medical History: No History, Except For Hx Cardiac Problems: No Hx Cancer: No Hx Gastrointestinal Problems: Yes History Of Psychiatric Problem: Yes - depression Hx Neurological Problems: No Review of Systems Constitutional: Denies: chills, sweats, fever Respiratory: Reports: cough Cardiovascular: Denies: chest pain Psychiatric: Reports: SI; Denies: HI Physical Exam Vital Signs Date Time Temp Pulse Resp B/P (MAP) Pulse Ox O2 Delivery O2 Flow Rate FiO2 02/05/19 08:59 97.5 105 20 124/79 (94) 95 Room Air Sp02 EP Interpretation: reviewed, normal General Appearance: no apparent distress, alert, GCS 15, non-toxic Head: normocephalic, atraumatic Eyes: bilateral eye normal inspection, bilateral eye PERRL ENT: hearing grossly normal, normal pharynx, no angioedema, normal voice Neck: full range of motion, supple/symm/no masses Respiratory: chest non-tender, lungs clear, normal breath sounds, speaking full sentences Cardiovascular #1: no edema, tachycardia Gastrointestinal: non tender, soft, non-distended, no guarding, no rebound Rectal: deferred Genitourinary: normal inspection, no CVA tenderness Musculoskeletal: back normal, gait/station normal, normal range of motion, non- tender, calf tenderness Neurologic: alert, oriented x3, responsive, motor strength/tone normal, sensory intact, speech normal Psychiatric: judgement/insight normal, memory normal, mood/affect normal, other - Suicidal ideations, no HI Skin: no rash, warm/dry Lymphatic: no adenopathy Medical Decision Making Diagnostic Impression: Primary Impression: Suicidal ideations Additional Impression: Rhabdomyolysis ER Course 53-year-old male presents with suicidal ideations, patient also found to have rhabdomyolysis, will admit patient for evaluation Given 2 L of fluid bolus improving Patient admitted to Dr. Marroquin Laboratory Tests Test 02/05/19 09:12 White Blood Count 13.4 K/UL (4.8-10.8) H Red Blood Count 4.91 M/UL (4.70-6.10) Hemoglobin 14.8 G/DL (14.2-18.0) Hematocrit 46.8 % (42.0-52.0) Mean Corpuscular Volume 95 FL (80-99) Mean Corpuscular Hemoglobin 30.2 PG (27.0-31.0) Mean Corpuscular Hemoglobin Concent 31.7 G/DL (32.0-36.0) L Red Cell Distribution Width 12.7 % (11.6-14.8) Platelet Count 357 K/UL (150-450) Mean Platelet Volume 7.3 FL (6.5-10.1) Neutrophils (%) (Auto) 67.0 % (45.0-75.0) Lymphocytes (%) (Auto) 18.4 % (20.0-45.0) L Monocytes (%) (Auto) 13.6 % (1.0-10.0) H Eosinophils (%) (Auto) 0.0 % (0.0-3.0) Basophils (%) (Auto) 1.0 % (0.0-2.0) Urine Color Yellow Urine Appearance Clear Urine pH 5 (4.5-8.0) Urine Specific [place] 1.025 (1.005-1.035) Urine Protein 3+ (NEGATIVE) H Urine Glucose (UA) Negative (NEGATIVE) Urine Ketones 3+ (NEGATIVE) H Urine Blood 4+ (NEGATIVE) H Urine Nitrite Negative (NEGATIVE) Urine Bilirubin 1+ (NEGATIVE) H Urine Ictotest Negative (NEGATIVE) Urine Urobilinogen 1 MG/DL (0.0-1.0) H Urine Leukocyte Esterase 1+ (NEGATIVE) H Urine RBC 2-4 /HPF (0 - 0) H Urine WBC 0-2 /HPF (0 - 0) Urine Squamous Epithelial Cells Occasional /LPF Urine Bacteria Occasional /HPF (NONE) Urine Mucus Moderate /LPF (NONE/OCC) H Sodium Level 140 MMOL/L (136-145) Potassium Level 3.6 MMOL/L (3.5-5.1) Chloride Level 101 MMOL/L (98-107) Carbon Dioxide Level 29 MMOL/L (21-32) Anion Gap 10 mmol/L (5-15) Blood Urea Nitrogen 35 mg/dL (7-18) H Creatinine 1.4 MG/DL (0.55-1.30) H Estimate Glomerular Filtration Rate > 60 mL/min (>60) Glucose Level 119 MG/DL (74-106) H Calcium Level 9.5 MG/DL (8.5-10.1) Total Bilirubin 1.3 MG/DL (0.2-1.0) H Direct Bilirubin 0.3 MG/DL (0.0-0.3) Aspartate Amino Transferase (AST) 287 U/L (15-37) H Alanine Aminotransferase (ALT) 97 U/L (12-78) H Alkaline Phosphatase 57 U/L (46-116) Total Creatine Kinase 8114 U/L (26-308) H Total Protein 8.5 G/DL (6.4-8.2) H Albumin 4.9 G/DL (3.4-5.0) Globulin 3.6 g/dL Albumin/Globulin Ratio 1.4 (1.0-2.7) Salicylates Level 0.8 ug/mL (2.8-20) L Urine Opiates Screen Negative (NEGATIVE) Acetaminophen Level < 2 MCG/ML (10-30) L Urine Barbiturates Screen Negative (NEGATIVE) Phencyclidine (PCP) Screen Negative (NEGATIVE) Urine Amphetamines Screen Negative (NEGATIVE) Urine Benzodiazepines Screen Negative (NEGATIVE) Urine Cocaine Screen Positive (NEGATIVE) H Urine Marijuana (THC) Screen Positive (NEGATIVE) H Serum Alcohol < 3 mg/dL Rhythm Strip Diag. Results Rhythm Strip Time: 09:36 EP Interpretation: yes Rate: 95 Rhythm: NSR, no PVC's, no ectopy Other Impression QTC 490, no acute ST elevations Last Vital Signs Date Time Temp Pulse Resp B/P (MAP) Pulse Ox O2 Delivery O2 Flow Rate FiO2 02/05/19 08:59 97.5 105 20 124/79 (79) 95 Room Air Disposition: ADMITTED INPATIENT Condition: Improved Stefan Pena M.D. Feb 05, 2019 09:22
[2019-02-05 09:34] LABS: APPEARANCE,URINE CLEAR; BILIRUBIN, URINE 1+ (NEGATIVE); GLUCOSE, URINE (UA) NEGATIVE (NEGATIVE); KETONES,URINE 3+ (NEGATIVE); LEUKOCYTE ESTERASE ,URINE 1+ (NEGATIVE); NITRITE,URINE NEGATIVE (NEGATIVE); PH,URINE 5 (4.5-8.0); PROTEIN,URINE 3+ (NEGATIVE); UROBILINOGEN,URINE 1 MG/DL (0.0-1.0)
--- NOTE | 2019-02-05 09:36 | NUR ---
ED Nurse Note: computer systems technician on bedside
[2019-02-05 09:41] LABS: ANION GAP 10 mmol/L (5-15); BLOOD UREA NITROGEN 35 mg/dL (7-18); CALCIUM 9.5 MG/DL (8.5-10.1); CARBON DIOXIDE 29 MMOL/L (21-32); CHLORIDE 101 MMOL/L (98-107); CREATININE 1.4 MG/DL (0.55-1.30); POTASSIUM 3.6 MMOL/L (3.5-5.1); SODIUM 140 MMOL/L (136-145)
[2019-02-05 09:43] LABS: COLOR,URINE YELLOW; HEMATOCRIT 46.8 % (42.0-52.0); HEMOGLOBIN 14.8 G/DL (14.2-18.0); LYMPHOCYTES % (AUTO) 18.4 % (20.0-45.0); MEAN CORPUSCULAR VOLUME 95 FL (80-99); MONOCYTES % (AUTO) 13.6 % (1.0-10.0); PLATELET COUNT 357 K/UL (150-450); RED BLOOD COUNT 4.91 M/UL (4.70-6.10); RED CELL DISTRIBUTION WIDTH 12.7 % (11.6-14.8); WHITE BLOOD COUNT 13.4 K/UL (4.8-10.8)
[2019-02-05 09:57] LABS: ALANINE AMINOTRANSFERASE 97 U/L (12-78); ALBUMIN 4.9 G/DL (3.4-5.0); ALBUMIN/GLOBULIN RATIO 1.4 (1.0-2.7); ALKALINE PHOSPHATASE 57 U/L (46-116); ASPARTATE AMINO TRANSFERASE 287 U/L (15-37); BILIRUBIN,TOTAL 1.3 MG/DL (0.2-1.0)
[2019-02-05 10:16] LABS: BILIRUBIN,DIRECT 0.3 MG/DL (0.0-0.3)
[2019-02-05 10:26] LABS: CREATINE KINASE 8114 U/L (26-308)
[2019-02-05] MEDS ORDERED: Zolpidem 5mg tab ORAL PRN (12:15)
[2019-02-05] MEDS ORDERED: LORazepam Inj 2mg/ml 1ml IV PRN (12:33)
[2019-02-05] MEDS ORDERED: Miralax 17gm pkt ORAL PRN (12:33)
--- NOTE | 2019-02-05 12:43 | Diagnostic Imaging Report ---
Indication: Chest pain Technique: One view of the chest Comparison: 04/27/2017 Findings: Lungs and pleural spaces are clear. Heart size is normal. No significant interim change Impression: No acute process
[2019-02-05] MEDS ORDERED: Dextrose 50% 25ml Syringe IV PRN (12:45)
[2019-02-05 13:30] VITALS: BP 118/76
--- NOTE | 2019-02-05 13:40 | NUR ---
NURSE NOTES: Received report from Elenita, ER Nurse. Waiting for Pt. to arrive.
--- NOTE | 2019-02-05 13:44 | NUR ---
ED Nurse Note: pt was admitted to the hospital. report was given to rosaura yao.
--- NOTE | 2019-02-05 14:10 | Consultation ---
History of Present Illness General Chief Complaint: Behavioral Complaint Present Illness HPI 53 year old male with PMHx of hypertension,, polysubstance use, depression, homeless, living in a usp, presented to ER in a disheveled condition claiming that he has suicidal thoughts and requesting pain meds. He has been off his psychiatric medications Wellbutrin and Abilify. He was found dehydrated with ATN and rhabdomyolysis. He is admitted for further treatment. Allergies: Coded Allergies: HALOPERIDOL (Unverified Allergy, Unknown, 07/28/14) MORPHINE (Unverified Allergy, Unknown, 07/28/14) Medication History Scheduled Aripiprazole* (Abilify*), 20 MG ORAL DAILY, (Reported) Bupropion Hcl* (Wellbutrin Xl*), 150 MG ORAL DAILY, (Reported) Divalproex Sodium (Depakote), 1,500 MG PO DAILY, (Reported) Dorzolamide Hcl* (Trusopt*), 1 DROP BOTH EYES TID, (Reported) Quetiapine Fumarate* (Seroquel*), 100 MG ORAL BEDTIME, (Reported) Timolol Maleate/Pf (Timoptic 0.5% Ocudose Drop), 1 EACH OP BID, (Reported) Miscellaneous Medications Naphazoline Hcl (Naphazoline Hcl), 15 ML OP, (Reported) Patient History Healthcare decision maker Resuscitation status Advanced Directive on File Family History Family History: (1) Polysubstance abuse (2) Depression Review of Systems All Other Systems: negative except mentioned in HPI Physical Exam General Appearance: WD/WN, no apparent distress Lines, tubes and drains: peripheral HEENT: normocephalic, atraumatic Neck: non-tender, normal alignment Respiratory/Chest: chest wall non-tender, lungs clear Breasts: no masses Cardiovascular/Chest: normal peripheral pulses Abdomen: normal bowel sounds, non tender Extremities: normal range of motion, non-tender Skin Exam: warm/dry 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 Last 24 Hour Vital Signs Date Time Temp Pulse Resp B/P (MAP) Pulse Ox O2 Delivery O2 Flow Rate FiO2 02/05/19 13:30 97.5 95 18 118/76 96 Room Air 02/05/19 09:20 105 20 Room Air 02/05/19 09:20 97.5 105 20 124/79 95 Room Air 02/05/19 08:59 97.5 105 20 124/79 (94) 95 Room Air Laboratory Tests Test 02/05/19 09:12 White Blood Count 13.4 K/UL (4.8-10.8) H Red Blood Count 4.91 M/UL (4.70-6.10) Hemoglobin 14.8 G/DL (14.2-18.0) Hematocrit 46.8 % (42.0-52.0) Mean Corpuscular Volume 95 FL (80-99) Mean Corpuscular Hemoglobin 30.2 PG (27.0-31.0) Mean Corpuscular Hemoglobin Concent 31.7 G/DL (32.0-36.0) L Red Cell Distribution Width 12.7 % (11.6-14.8) Platelet Count 357 K/UL (150-450) Mean Platelet Volume 7.3 FL (6.5-10.1) Neutrophils (%) (Auto) 67.0 % (45.0-75.0) Lymphocytes (%) (Auto) 18.4 % (20.0-45.0) L Monocytes (%) (Auto) 13.6 % (1.0-10.0) H Eosinophils (%) (Auto) 0.0 % (0.0-3.0) Basophils (%) (Auto) 1.0 % (0.0-2.0) Urine Color Yellow Urine Appearance Clear Urine pH 5 (4.5-8.0) Urine Specific [place] 1.025 (1.005-1.035) Urine Protein 3+ (NEGATIVE) H Urine Glucose (UA) Negative (NEGATIVE) Urine Ketones 3+ (NEGATIVE) H Urine Blood 4+ (NEGATIVE) H Urine Nitrite Negative (NEGATIVE) Urine Bilirubin 1+ (NEGATIVE) H Urine Ictotest Negative (NEGATIVE) Urine Urobilinogen 1 MG/DL (0.0-1.0) H Urine Leukocyte Esterase 1+ (NEGATIVE) H Urine RBC 2-4 /HPF (0 - 0) H Urine WBC 0-2 /HPF (0 - 0) Urine Squamous Epithelial Cells Occasional /LPF Urine Bacteria Occasional /HPF (NONE) Urine Mucus Moderate /LPF (NONE/OCC) H Sodium Level 140 MMOL/L (136-145) Potassium Level 3.6 MMOL/L (3.5-5.1) Chloride Level 101 MMOL/L (98-107) Carbon Dioxide Level 29 MMOL/L (21-32) Anion Gap 10 mmol/L (5-15) Blood Urea Nitrogen 35 mg/dL (7-18) H Creatinine 1.4 MG/DL (0.55-1.30) H Estimat Glomerular Filtration Rate > 60 mL/min (>60) Glucose Level 119 MG/DL (74-106) H Calcium Level 9.5 MG/DL (8.5-10.1) Total Bilirubin 1.3 MG/DL (0.2-1.0) H Direct Bilirubin 0.3 MG/DL (0.0-0.3) Aspartate Amino Transf (AST/SGOT) 287 U/L (15-37) H Alanine Aminotransferase (ALT/SGPT) 97 U/L (12-78) H Alkaline Phosphatase 57 U/L (46-116) Total Creatine Kinase 8114 U/L (26-308) H Total Protein 8.5 G/DL (6.4-8.2) H Albumin 4.9 G/DL (3.4-5.0) Globulin 3.6 g/dL Albumin/Globulin Ratio 1.4 (1.0-2.7) Salicylates Level 0.8 ug/mL (2.8-20) L Urine Opiates Screen Negative (NEGATIVE) Acetaminophen Level < 2 MCG/ML (10-30) L Urine Barbiturates Screen Negative (NEGATIVE) Phencyclidine (PCP) Screen Negative (NEGATIVE) Urine Amphetamines Screen Negative (NEGATIVE) Urine Benzodiazepines Screen Negative (NEGATIVE) Urine Cocaine Screen Positive (NEGATIVE) H Urine Marijuana (THC) Screen Positive (NEGATIVE) H Serum Alcohol < 3 mg/dL Height (Feet): 5 Height (Inches): 10.00 Weight (Pounds): 190 Medications Current Medications Medications (Trade) Dose Ordered Sig/Pily Route PRN Reason Start Time Stop Time Status Last Admin Dose Admin Acetaminophen (Tylenol) 650 mg Q4H PRN ORAL fever 02/05/19 12:33 03/07/19 12:32 Clonidine HCl (Catapres Tab) 0.1 mg Q4H PRN ORAL For High Blood Pressure 02/05/19 12:15 03/07/19 12:14 Dextrose (Dextrose 50%) 25 ml Q30M PRN IV Hypoglycemia 02/05/19 12:45 03/07/19 12:30 Dextrose (Dextrose 50%) 50 ml Q30M PRN IV hypoglycemia 02/05/19 12:45 03/07/19 12:44 Dextrose/Sodium Chloride 1,000 ml @ 150 mls/hr Q6H40M IV 02/05/19 12:15 03/07/19 12:14 Heparin Sodium (Porcine) (Heparin 5000 units/ml) 5,000 units EVERY 12 HOURS SUBQ 02/05/19 21:00 03/07/19 20:59 Lorazepam (Ativan 2mg/ml 1ml) 0.5 mg Q4H PRN IV For Anxiety 02/05/19 12:33 02/12/19 12:32 Ondansetron HCl (Zofran) 4 mg Q6H PRN IVP Nausea & Vomiting 02/05/19 12:33 03/07/19 12:32 Polyethylene Glycol (Miralax) 17 gm HSPRN PRN ORAL Constipation 02/05/19 12:33 03/07/19 12:32 Zolpidem Tartrate (Ambien) 5 mg HSPRN PRN ORAL Insomnia 02/05/19 12:15 02/12/19 12:14 Assessment/Plan Problem List: (1) Rhabdomyolysis ICD Codes: M62.82 - Rhabdomyolysis SNOMED: 030385336 (2) ATN (acute tubular necrosis) ICD Codes: N17.0 - Acute kidney failure with tubular necrosis SNOMED: 36651520 (3) Depression ICD Codes: F32.9 - Major depressive disorder, single episode, unspecified SNOMED: 23942703 (4) Polysubstance abuse ICD Codes: F19.10 - Other psychoactive substance abuse, uncomplicated SNOMED: 921393054 (5) Non-compliance ICD Codes: Z91.19 - Patient's noncompliance with other medical treatment and regimen SNOMED: 7274328 (6) Lives in homeless usp ICD Codes: Z59.0 - Homelessness SNOMED: 16276742, 554233069 Assessment/Plan: iv fluid symptomatic treatment check cpk and uric acid renal evaluation ativan for anxiety. dvt prophylaxis. Vale Marcelino MD Feb 05, 2019 14:10
--- NOTE | 2019-02-05 14:20 | NUR ---
ED Nurse Note: pt wqs trasnfered to room with satble vs and with all belongings.
--- NOTE | 2019-02-05 14:30 | NUR ---
NURSE NOTES: Patient came in from ER via gurney. Able to walk to the bed 5 steps with assist. AOx4. Complained of foot pain. Noticed sole of foot covered with dark sand, Pt. voiced have been walking bare foot for 2 days i.e foot pain. Belongings checked with Pt. and ER nurse, signed and filed. 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 Hospital policies shared with Pt. IV on L AC 20g flushed and SL. Skin dry and intact except for old healed surgical scar on stomach. Made comfortable in bed. Bed on lowest position, side rails upx2, brakes engaged. Call light within easy reach.
[2019-02-05] MEDS: D5 1/2NS 1,000 ML IV SCH ×2 (14:52→19:23)
--- NOTE | 2019-02-05 15:04 | Consultation ---
Consult Note Consult Note Asked to eval for elevated Cr and low urine out put 53 year old male past history of hypertension, hyperlipidemia, polysubstance use , depression SI 4 years in the past, with acute suicidal ideations over the past 2 days, worsened with drug use, he is currently off his psychiatric medications Wellbutrin and Abilify, no alleviating factors, no access to weapons patient endorses only a cough, no chest pain, shortness of breath, no nausea vomiting, no fever no chills, no homicidal ideations, only suicidal ideations Allergies: HALOPERIDOL (Unverified Allergy, Unknown, 07/28/14) MORPHINE (Unverified Allergy, Unknown, 07/28/14) Past Medical History: see triage record, HTN Past Surgical History: other - Repair, SBO Social History: Reports: alcohol use, drug use - cocaine Past Medical History: No History, Except For Hx Gastrointestinal Problems: Yes History Of Psychiatric Problem: Yes - depression interviewed examined data reviewed Assessment/Plan Acute Renal failure- Rhabdomyolysis Poly substance abuse Hydrate PRN clonidin for high BP Monitor renal parameters per orders Tremaine Brown MD Feb 05, 2019 15:04
--- NOTE | 2019-02-05 15:10 | NUR ---
NURSE NOTES: Per ER report Pt. had suicidal ideation. Pt. replied "Now I don't feel like harming myself........" Communicated with .
[2019-02-05 16:39] LABS: ALANINE AMINOTRANSFERASE 83 U/L (12-78); ALBUMIN 4.1 G/DL (3.4-5.0); ALBUMIN/GLOBULIN RATIO 1.3 (1.0-2.7); ALKALINE PHOSPHATASE 53 U/L (46-116); ANION GAP 8 mmol/L (5-15); ASPARTATE AMINO TRANSFERASE 203 U/L (15-37); BLOOD UREA NITROGEN 30 mg/dL (7-18); CALCIUM 8.9 MG/DL (8.5-10.1); CARBON DIOXIDE 29 MMOL/L (21-32); CHLORIDE 102 MMOL/L (98-107); CREATINE KINASE 5060 U/L (26-308); CREATININE 1.2 MG/DL (0.55-1.30); PHOSPHORUS 2.6 MG/DL (2.5-4.9); POTASSIUM 3.4 MMOL/L (3.5-5.1); SODIUM 139 MMOL/L (136-145)
[2019-02-05] MEDS: Docusate 100mg cap ORAL SCH (17:26)
--- NOTE | 2019-02-05 17:45 | NUR ---
NURSE NOTES: Noticed coughing and expectorating sputum. Voiced have been coughing for 2 weeks. Informed .
--- NOTE | 2019-02-05 17:49 | History & Physical ---
History and Physical History & Physicial Joey Marroquin MD Feb 05, 2019 17:49
--- NOTE | 2019-02-05 19:15 | History and Physical Report ---
DATE OF ADMISSION: 02/05/2019 CHIEF COMPLAINT: Severe weakness, lower extremity feet pain. HISTORY OF PRESENT ILLNESS: The patient is a 53-year-old gentleman with past medical history significant for hypertension, dyslipidemia, polysubstance abuse, depression with prior history of suicidal ideation about four years ago, who presented to the hospital complaining about acute suicidal ideation over past two days, worsening of the drug abuse. He is currently off his psychiatric medication, Wellbutrin as well as Abilify, elevated factor, no accessing to weapon or knife. The patient endorsed that only coughing. No chest pain, shortness of breath. No nausea or vomiting. Complained about the bottom of foot pain. Denies any fever or chills. No homicidal ideation. Only suicidal ideation. Shortly after initial evaluation in the emergency, the patient was admitted to the hospital with acute renal failure with the as well as polysubstance abuse and suicidal ideation. PAST MEDICAL HISTORY/PAST SURGICAL HISTORY: As above, history of hypertension, polysubstance abuse, psychiatric disorder with prior history of depression and suicidal ideation, dyslipidemia, history of small bowel obstruction. MEDICATIONS: Medications at home, please refer to medication reconciliation. ALLERGIES: Morphine and Haldol. SOCIAL HISTORY: Denies any smoking. The patient is using cocaine. Denies any alcohol abuse. FAMILY HISTORY: Noncontributory. REVIEW OF SYSTEMS: Mostly as above. Denies any dysuria, frequency, hematuria. Denies any hemoptysis or hematochezia. Complained about cough. Denies any fever or chills. Complained about suicidal ideation. Denies any loss of consciousness. PHYSICAL EXAMINATION: VITAL SIGNS: On admission, temperature 97.5, pulse of 105, respirations 20, and blood pressure 124/79. GENERAL: The patient awake, responsive, no acute distress. HEAD AND NECK: Pupils are reactive to light. Extraocular movements intact. Neck was supple. No jugular venous distention. LUNGS: Good air entry. No wheezing or rales. HEART: S1 and S2. Regular rhythm. No murmur or gallops. ABDOMEN: Soft, nondistended, and nontender. Positive bowel sounds. EXTREMITIES: No cyanosis, clubbing, or edema. 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 Motor is 5/5 in all extremities. Gait is intact. RECTAL/GENITOURINARY: Refused and deferred. PSYCHIATRIC: Mood and affect is deferred. LABORATORY DATA: On admission from the ER, WBC of 13, hemoglobin 14, hematocrit 46, and platelets 357,000. Sodium 140, potassium 3.6, chloride 101, bicarb 29, BUN 35, creatinine 1.4, and glucose 119, and total bilirubin of 1.3. AST of 287, ALT of 97, total CK 8114. Total protein is 8.5 and albumin is 4.9. Urine drug screen positive for cocaine as well as marijuana, no salicylate, acetaminophen or alcohol. Urinalysis, +3 protein, +3 ketones, +4 blood, +1 leukocytes, 2 to 4 rbc's, moderate mucosa. The patient's chest x-ray was noted to be no acute process. ASSESSMENT: 1. Severe depression with suicidal ideation. 2. Acute kidney injury, most likely secondary to dehydration and prerenal azotemia. 3. . 4. Polysubstance abuse with THC as well as cocaine. 5. History of hypertension. 6. Dyslipidemia. PLAN: Admit the patient to monitor unit. Follow up with the aggressive IV hydration. Monitor laboratory closely as well as culture. Code status is Full Code. DVT prophylaxis, heparin subcutaneous. We will followup with psychiatry consultation with Dr. Meade, Pulmonary Critical Care with Dr. Marcelino and Nephrology Dr. Tremaine Brown. We will follow up laboratory closely. Joey Marroquin M.D. DR: Nori JOB#: [id number] CC:
--- NOTE | 2019-02-05 19:40 | NUR ---
NURSE NOTES: Pt. "Please call and inform my employers that I'm in a hospital. Informed night RN. Night RN agreed to follow up.
--- NOTE | 2019-02-05 19:50 | NUR ---
HAND-OFF: Report given to JENSEN Kwong. Pt. in stable condition.
--- NOTE | 2019-02-05 19:51 | NUR ---
NURSE NOTES: Got report from Kassandra STYLES. Pt in stable condition. Denies any pain. No s/s of distress or discomfort noted. Pt resting in bed comfortably. Bed in low and locked position, call light within reach, bedside table within reach. Continue to monitor.
[2019-02-05 20:00] VITALS: BP 127/79
[2019-02-05] MEDS: Heparin 5000 units/ml inj SUBQ SCH (21:00)
[2019-02-05 23:58] VITALS: BP 141/88
[2019-02-06] MEDS: D5 1/2NS 1,000 ML IV SCH ×2 (01:15→08:39)
[2019-02-06] MEDS ORDERED: Naphazoline 0.03% Opth Soln 15ml BOTH EYES PRN ×2 (01:30→14:00)
[2019-02-06 04:20] VITALS: BP 105/54
--- NOTE | 2019-02-06 07:00 | NUR ---
NURSE NOTES: Report received from Abdoulaye STYLES. AO X4 and able to make needs known. Pt in bed asleep and responsive to verbal tactile easily. No c/o pain. On room air. No acute distress noted. Rhythm with SR reported during night filler. IV site Right wrist 20G running with D5 1/2NS @150cc/hr intact and asymptomatic. Bed in its lowest position and locked. Will continue to plan of care.
--- NOTE | 2019-02-06 07:00 | NUR ---
HAND-OFF: Report given to Min RN. Endorsed plan of care.
[2019-02-06 07:08] LABS: BASOPHILS % (AUTO) 0.8 % (0.0-2.0); EOSINOPHILS % (AUTO) 0.6 % (0.0-3.0); HEMATOCRIT 42.2 % (42.0-52.0); HEMOGLOBIN 13.4 G/DL (14.2-18.0); LYMPHOCYTES % (AUTO) 33.3 % (20.0-45.0); MEAN CORPUSCULAR VOLUME 95 FL (80-99); MONOCYTES % (AUTO) 16.1 % (1.0-10.0); NEUTROPHILS % (AUTO) 49.2 % (45.0-75.0); PLATELET COUNT 300 K/UL (150-450); RED BLOOD COUNT 4.42 M/UL (4.70-6.10); RED CELL DISTRIBUTION WIDTH 12.2 % (11.6-14.8)
[2019-02-06 07:34] LABS: ALANINE AMINOTRANSFERASE 60 U/L (12-78); ALBUMIN 3.2 G/DL (3.4-5.0); ALKALINE PHOSPHATASE 49 U/L (46-116); ASPARTATE AMINO TRANSFERASE 111 U/L (15-37); BILIRUBIN,TOTAL 0.5 MG/DL (0.2-1.0); BLOOD UREA NITROGEN 17 mg/dL (7-18); CALCIUM 8.5 MG/DL (8.5-10.1); CARBON DIOXIDE 25 MMOL/L (21-32); CHOLESTEROL 144 MG/DL (< 200); CREATININE 1.1 MG/DL (0.55-1.30); HDL CHOLESTEROL 45 MG/DL (40-60); TRIGLYCERIDES 69 MG/DL (30-150)
[2019-02-06 07:38] LABS: CREATINE KINASE 1971 U/L (26-308); GAMMA GLUTAMYL TRANSPEPTIDASE 34 U/L (5-85); PHOSPHORUS 3.2 MG/DL (2.5-4.9)
[2019-02-06 07:46] LABS: CHLORIDE 106 MMOL/L (98-107); SODIUM 138 MMOL/L (136-145)
[2019-02-06 08:00] VITALS: BP 138/91
[2019-02-06] MEDS: Docusate 100mg cap ORAL SCH ×3 (08:13→17:21)
[2019-02-06] MEDS: Heparin 5000 units/ml inj SUBQ SCH ×2 (08:16→20:54)
[2019-02-06] MEDS ORDERED: Timolol 0.5% Op Soln 2.5ml BOTH EYES SCH (09:00)
[2019-02-06] MEDS: Dorzolamide 2% 10ml Btl BOTH EYES SCH ×3 (09:10→17:22)
--- NOTE | 2019-02-06 09:50 | NUR ---
PT EVALUATION NOTE Patient seen for initial evaluation, see complete evaluation for details. Patient presents with generalized weakness and impaired balance which affects patient's ability to perform mobility activities safely. Patient will benefit from skilled inpatient PT intervention to address strength, balance, safety and functional mobility. Recommend discharge to SNF for further rehab to improve level of mobility and return to prior level of function. Recommend FWW for safe ambulation. Addendum: 02/06/19 at 1237 by ECM CORRAL PT Amended: Links added.
[2019-02-06] MEDS ORDERED: D5 1/2NS 1,000 ML IV SCH ×2 (11:00→13:45)
[2019-02-06] MEDS ORDERED: Ketorolac 30mg Inj IV PRN ×2 (11:00→14:00)
[2019-02-06] MEDS ORDERED: ARIPiprazole 10mg tab ORAL SCH (11:00)
[2019-02-06] MEDS ORDERED: Depakote 500mg tab ORAL SCH (11:00)
--- NOTE | 2019-02-06 11:04 | Pulmonology Progress Note ---
Assessment/Plan Problems: (1) Rhabdomyolysis (2) ATN (acute tubular necrosis) (3) Depression (4) Polysubstance abuse (5) Non-compliance (6) Lives in homeless [facility] Assessment/Plan decrease iv fluid, bun and creatinine are back to dewayne Ketorolec IV for pain symptomatic treatment check cpk and uric acid renal evaluation appreciated ativan for anxiety. resume psychiatric meds dvt prophylaxis. Subjective ROS Limited/Unobtainable: No Constitutional: Reports: no symptoms HEENT: Repors: no symptoms Allergies: Coded Allergies: HALOPERIDOL (Unverified Allergy, Unknown, 07/28/14) MORPHINE (Unverified Allergy, Unknown, 07/28/14) Objective Last 24 Hour Vital Signs Date Time Temp Pulse Resp B/P (MAP) Pulse Ox O2 Delivery O2 Flow Rate FiO2 02/06/19 09:00 Room Air 02/06/19 08:00 97.8 81 17 138/91 (107) 98 02/06/19 08:00 83 02/06/19 06:59 98.1 02/06/19 04:20 98.1 93 18 105/54 (71) 96 02/06/19 04:11 87 02/06/19 00:29 Room Air 02/06/19 00:00 96 02/05/19 23:58 98.0 88 18 141/88 (105) 96 02/05/19 21:00 Room Air 02/05/19 20:00 98.0 97 18 127/79 (95) 96 02/05/19 20:00 99 02/05/19 16:00 94 02/05/19 14:45 Room Air 02/05/19 14:30 105 02/05/19 14:20 97.5 95 18 118/76 96 Room Air 02/05/19 13:30 97.5 95 18 118/76 96 Room Air Intake and Output 02/05/19 02/06/19 19:00 07:00 Intake Total 2320 ml Balance 2320 ml Intake Oral 320 ml IV Total 2000 ml # Voids 3 2 # Bowel Movements 2 2 General Appearance: WD/WN HEENT: normocephalic, atraumatic Respiratory/Chest: chest wall non-tender, lungs clear Cardiovascular: normal peripheral pulses, normal rate, regular rhythm Abdomen: soft, non tender Genitourinary: normal external genitalia Extremities: no cyanosis Skin: no lesions 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 Laboratory Tests 02/05/19 13:20: Sodium Level 139, Potassium Level 3.4L, Chloride Level 102, Carbon Dioxide Level 29, Anion Gap 8, Blood Urea Nitrogen 30H, Creatinine 1.2, Estimat Glomerular Filtration Rate > 60, Glucose Level 106, Uric Acid 7.2, Calcium Level 8.9, Phosphorus Level 2.6, Magnesium Level 2.4, Total Bilirubin 1.0, Aspartate Amino Transf (AST/SGOT) 203H, Alanine Aminotransferase (ALT/SGPT) 83H , Alkaline Phosphatase 53, Total Creatine Kinase 5060H, Total Protein 7.2, Albumin 4.1, Globulin 3.1, Albumin/Globulin Ratio 1.3 02/06/19 05:58: Sodium Level 138, Potassium Level 4.0, Chloride Level 106, Carbon Dioxide Level 25, Blood Urea Nitrogen 17, Creatinine 1.1, Estimat Glomerular Filtration Rate > 60, Glucose Level 111H, Uric Acid 5.4, Calcium Level 8.5, Phosphorus Level 3.2 , Magnesium Level 2.2, Total Bilirubin 0.5, Aspartate Amino Transf (AST/SGOT) 111H, Alanine Aminotransferase (ALT/SGPT) 60, Alkaline Phosphatase 49, Total Creatine Kinase 1971H, Total Protein 6.5, Albumin 3.2L, Globulin 3.3, Albumin/ Globulin Ratio 1.0, White Blood Count 7.0, Red Blood Count 4.42L, Hemoglobin 13.4L, Hematocrit 42.2, Mean Corpuscular Volume 95, Mean Corpuscular Hemoglobin 30.3, Mean Corpuscular Hemoglobin Concent 31.8L, Red Cell Distribution Width 12.2, Platelet Count 300, Mean Platelet Volume 7.4, Neutrophils (%) (Auto) 49.2 , Lymphocytes (%) (Auto) 33.3, Monocytes (%) (Auto) 16.1H, Eosinophils (%) (Auto ) 0.6, Basophils (%) (Auto) 0.8, Hemoglobin A1c 5.5, Gamma Glutamyl Transpeptidase 34, Troponin I 0.007, C-Reactive Protein, Quantitative < 0.4, Pro -B-Type Natriuretic Peptide 101, Triglycerides Level 69, Cholesterol Level 144, LDL Cholesterol 79, HDL Cholesterol 45, Cholesterol/HDL Ratio 3.2L, Thyroid Stimulating Hormone (TSH) 0.952 Current Medications Medications (Trade) Dose Ordered Sig/Pily Route PRN Reason Start Time Stop Time Status Last Admin Dose Admin Acetaminophen (Tylenol) 650 mg Q4H PRN ORAL fever 02/05/19 12:33 03/07/19 12:32 02/05/19 17:28 Acetaminophen (Tylenol) 650 mg Q6H PRN ORAL Mild Pain 02/05/19 15:45 03/07/19 15:44 02/06/19 06:29 Aripiprazole (Abilify) 20 mg DAILY ORAL 02/06/19 11:00 03/08/19 10:59 Bupropion HCl (Wellbutrin XL) 150 mg DAILY ORAL 02/07/19 09:00 03/09/19 08:59 Clonidine HCl (Catapres Tab) 0.1 mg Q4H PRN ORAL for BP over 165 syst 02/05/19 15:09 03/07/19 15:08 Dextrose (Dextrose 50%) 25 ml Q30M PRN IV Hypoglycemia 02/05/19 12:45 03/07/19 12:30 Dextrose (Dextrose 50%) 50 ml Q30M PRN IV hypoglycemia 02/05/19 12:45 03/07/19 12:44 Dextrose/Sodium Chloride 1,000 ml @ 75 mls/hr [id number] IV 02/06/19 11:00 03/07/19 10:59 02/06/19 10:57 Divalproex Sodium (Depakote) 1,500 mg DAILY ORAL 02/06/19 11:00 03/08/19 10:59 Docusate Sodium (Colace) 100 mg THREE TIMES A DAY ORAL 02/05/19 18:00 03/07/19 17:59 02/05/19 17:26 Dorzolamide HCl (Trusopt) 1 drop THREE TIMES A DAY BOTH EYES 02/06/19 09:00 03/08/19 08:59 02/06/19 09:10 Heparin Sodium (Porcine) (Heparin 5000 units/ml) 5,000 units EVERY 12 HOURS SUBQ 02/05/19 21:00 03/07/19 20:59 Ketorolac Tromethamine (Toradol 30mg) 15 mg Q6H PRN IV pain 702/06/19 11:00 02/11/19 10:59 Lorazepam (Ativan 2mg/ml 1ml) 0.5 mg Q4H PRN IV For Anxiety 02/05/19 12:33 02/12/19 12:32 Naphazoline HCl (Vasocon) 1 drop Q4H PRN BOTH EYES eye irritation/glaucoma 02/06/19 01:30 03/08/19 01:29 Ondansetron HCl (Zofran) 4 mg Q6H PRN IVP Nausea & Vomiting 02/05/19 12:33 03/07/19 12:32 Pantoprazole (Protonix) 40 mg EVERY 12 HOURS ORAL 02/05/19 21:00 03/07/19 20:59 02/06/19 08:15 Polyethylene Glycol (Miralax) 17 gm HSPRN PRN ORAL Constipation 02/05/19 12:33 03/07/19 12:32 Quetiapine Fumarate (SEROquel) 100 mg BEDTIME ORAL 02/06/19 21:00 03/08/19 20:59 Timolol Maleate (Timoptic 0.5% Op Soln) 1 drop TWICE A DAY BOTH EYES 02/06/19 09:00 03/08/19 08:59 02/06/19 09:10 Zolpidem Tartrate (Ambien) 5 mg HSPRN PRN ORAL Insomnia 02/05/19 12:15 02/12/19 12:14 02/05/19 21:13 Vale Marcelino MD Feb 06, 2019 11:04
[2019-02-06 12:00] VITALS: BP 135/93
--- NOTE | 2019-02-06 12:29 | NUR ---
CASE MANAGEMENT: INITIAL REVIEW 53 YO M BIB [facility] CC: FEELING DEPRESSED. OFF PSYCH MEDS. PMHx: HTN. HLD. POLYSUBSTANCE USE. SBO. DEPRESSION. SI:RHABDOMYOLYSIS. T 97.5 HR 105 RR 20 B/P 124/79 SATS 95% ON RA WBC 13.4 BUN 35 CR 1.4 GLU 119 TBILI 1.3 AST 287 ALT 97 TOTAL CK 8114 UTOX (+COCAINE.THC) SI: NS BOLUS X2 CXR Impression: No acute process PATIENT ADMITTED TO TELE 02/05/2019 @ 1124 DCP: PATIENT TO BE DISCHARGED TO APPROPRIATE LOCATION ONCE MEDICALLY CLEARED. PLAN OF CARE: AGGRESSIVE HYDRATION RENAL EVAL Addendum: 02/07/19 at 0831 by Lesley Diaz CM INTERQUAL MET
--- NOTE | 2019-02-06 12:38 | NUR ---
INSURANCE CLINICALS AND REVIEWS FAXED TO FAX [phone]
--- NOTE | 2019-02-06 13:50 | NUR ---
HAND-OFF: Report given to Davey STYLES. Pt remains stable.
[2019-02-06 14:00] VITALS: BP 129/90
[2019-02-06] MEDS ORDERED: LORazepam Inj 2mg/ml 1ml IV PRN (14:00)
--- NOTE | 2019-02-06 14:36 | NUR ---
Social Service Note SW familiar with patient from previous admissions. Patient has been homeless since 2017. Patient is alert, oriented and verbally responsive. 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 Patient states his divorce from his Zoë finalized about 6 months ago. Patient is residing at [facility]. Patient states its not the ideal situation but currently doesn't have any other housing plan. Patient states the facility has multiple drug users which enable him to continue his cocaine addiction. Patient [facility] and [facility]. Patient with a long history of cocaine use. Patient has a history of depression. Patient states he isn't taking medication as prescribed and has been off multiple mental health medications. Patient unable to provide names, dose and frequency of medication. Patient denies SI/HI and though depressed doesn't feel in patient psychiatric hospitalization is required. Patient receives mental health services through the [employer]. Patient however believe bc of drug use the [facility] doesn't provide adequate support. Emotional support provided. CECIL addressed placement upon discharge. Patient will return to [facility] located a [address] [address]. Patient's emergency contact is his Aunt [phone]. Patient will be provided transportation upon discharg. CECIL discussed with Dr. Marcelino. Anticipated dc tomorrow.
[2019-02-06 16:00] VITALS: BP 125/85
--- NOTE | 2019-02-06 16:55 | Nephrology Progress Note ---
Assessment/Plan Problem List: (1) Rhabdomyolysis (2) Polysubstance abuse (3) ATN (acute tubular necrosis) Assessment Acute Renal failure- Rhabdomyolysis Poly substance abuse Plan Hydrate PRN clonidin for high BP Monitor renal parameters per orders Subjective ROS Limited/Unobtainable: No Constitutional: Reports: malaise, weakness Objective Objective Last 24 Hour Vital Signs Date Time Temp Pulse Resp B/P (MAP) Pulse Ox O2 Delivery O2 Flow Rate FiO2 02/06/19 12:00 98.7 94 18 135/93 (107) 99 02/06/19 12:00 87 02/06/19 09:00 Room Air 02/06/19 08:00 97.8 81 17 138/91 (107) 98 02/06/19 08:00 83 02/06/19 06:59 98.1 02/06/19 04:20 98.1 93 18 105/54 (71) 96 02/06/19 04:11 87 02/06/19 00:29 Room Air 02/06/19 00:00 96 02/05/19 23:58 98.0 88 18 141/88 (105) 96 02/05/19 21:00 Room Air 02/05/19 20:00 98.0 97 18 127/79 (95) 96 02/05/19 20:00 99 Intake and Output 02/05/19 02/06/19 19:00 07:00 Intake Total 2320 ml Balance 2320 ml Intake Oral 320 ml IV Total 2000 ml # Voids 3 2 # Bowel Movements 2 2 Laboratory Tests 02/06/19 05:58: White Blood Count 7.0, Red Blood Count 4.42L, Hemoglobin 13.4L, Hematocrit 42.2 , Mean Corpuscular Volume 95, Mean Corpuscular Hemoglobin 30.3, Mean Corpuscular Hemoglobin Concent 31.8L, Red Cell Distribution Width 12.2, Platelet Count 300, Mean Platelet Volume 7.4, Neutrophils (%) (Auto) 49.2, Lymphocytes (%) (Auto) 33.3, Monocytes (%) (Auto) 16.1H, Eosinophils (%) (Auto) 0.6, Basophils (%) (Auto) 0.8, Sodium Level 138, Potassium Level 4.0, Chloride Level 106, Carbon Dioxide Level 25, Blood Urea Nitrogen 17, Creatinine 1.1, Estimat Glomerular Filtration Rate > 60, Glucose Level 111H, Hemoglobin A1c 5.5 , Uric Acid 5.4, Calcium Level 8.5, Phosphorus Level 3.2, Magnesium Level 2.2, Total Bilirubin 0.5, Gamma Glutamyl Transpeptidase 34, Aspartate Amino Transf ( AST/SGOT) 111H, Alanine Aminotransferase (ALT/SGPT) 60, Alkaline Phosphatase 49 , Total Creatine Kinase 1971H, Troponin I 0.007, C-Reactive Protein, Quantitative < 0.4, Pro-B-Type Natriuretic Peptide 101, Total Protein 6.5, Albumin 3.2L, Globulin 3.3, Albumin/Globulin Ratio 1.0, Triglycerides Level 69, Cholesterol Level 144, LDL Cholesterol 79, HDL Cholesterol 45, Cholesterol/HDL Ratio 3.2L, Thyroid Stimulating Hormone (TSH) 0.952 Height (Feet): 5 Height (Inches): 10.00 Weight (Pounds): 190 General Appearance: no apparent distress Cardiovascular: tachycardia Respiratory/Chest: decreased breath sounds Abdomen: soft Tremaine Brown MD Feb 06, 2019 16:55
[2019-02-06] MEDS: Timolol 0.5% Op Soln 2.5ml BOTH EYES SCH (17:22)
[2019-02-06] MEDS: D5 1/2NS w/KCl 20mEq 1,000 ML IV SCH (18:03)
--- NOTE | 2019-02-06 18:42 | NUR ---
Received pt from [employer] [facility] at 1350. Pt is alert and orient x4. pt is in RA, no SOB or acute respiratory distress noted. pt has intact iv access LAC 20G is running well. no complain of pain at this moment. skin is intact. V/S stable.all needs attended, bed is locked and is in the lowest position. call light within easy reach. will continue to monitor.
--- NOTE | 2019-02-06 19:30 | NUR ---
NURSE NOTES: Received patient in bed, awake, alert, oriented, patient able to use walker for ambulation, able to make her needs known. No acute distress noted, VSS, afebrile. Call light is within reach, bed is in low position, locked, alarm is on. Will continue to monitor for safety and comfort.
--- NOTE | 2019-02-06 19:31 | NUR ---
HAND-OFF: Report given to FREDA STYLES .
[2019-02-06 20:00] VITALS: BP 118/62
[2019-02-06] MEDS ORDERED: Miralax 17gm pkt ORAL PRN (21:00)
[2019-02-07] VITALS: BP 104/70
--- NOTE | 2019-02-07 00:01 | Internal Med Progress Note ---
Subjective Physician Name Joey Marroquin Attending Physician Joey Marroquin MD Current Medications Medications (Trade) Dose Ordered Sig/Pily Route PRN Reason Start Time Stop Time Status Last Admin Dose Admin Acetaminophen (Tylenol) 650 mg Q4H PRN ORAL T>100.5 02/06/19 14:00 03/07/19 13:59 Acetaminophen (Tylenol) 650 mg Q6H PRN ORAL Mild Pain (Pain Scale 1-3) 02/06/19 14:00 03/07/19 13:59 Aripiprazole (Abilify) 20 mg DAILY ORAL 02/07/19 09:00 03/08/19 10:59 Bupropion HCl (Wellbutrin XL) 150 mg DAILY ORAL 02/07/19 09:00 03/09/19 08:59 Clonidine HCl (Catapres Tab) 0.1 mg Q4H PRN ORAL for BP over 165 syst 02/06/19 14:00 03/07/19 13:59 Dextrose (Dextrose 50%) 25 ml Q30M PRN IV Hypoglycemia 02/06/19 13:45 03/07/19 12:30 Dextrose (Dextrose 50%) 50 ml Q30M PRN IV hypoglycemia 02/06/19 13:45 03/07/19 12:44 Dextrose/ Electrolytes 1,000 ml @ 75 mls/hr [id number] IV 02/06/19 18:00 03/08/19 17:59 02/06/19 18:03 Divalproex Sodium (Depakote) 1,500 mg DAILY ORAL 02/07/19 09:00 03/08/19 10:59 Docusate Sodium (Colace) 100 mg THREE TIMES A DAY ORAL 02/06/19 18:00 03/07/19 17:59 02/06/19 17:21 Dorzolamide HCl (Trusopt) 1 drop THREE TIMES A DAY BOTH EYES 02/06/19 18:00 03/08/19 08:59 02/06/19 17:22 Heparin Sodium (Porcine) (Heparin 5000 units/ml) 5,000 units EVERY 12 HOURS SUBQ 02/06/19 21:00 03/07/19 20:59 Ketorolac Tromethamine (Toradol 30mg) 15 mg Q6H PRN IV Severe Pain (Pain Scale 7-10) 02/06/19 14:00 02/11/19 13:59 7/11/19 21:04 Lorazepam (Ativan 2mg/ml 1ml) 0.5 mg Q4H PRN IV For Anxiety 02/06/19 14:00 02/12/19 13:59 Naphazoline HCl (Vasocon) 1 drop Q4H PRN BOTH EYES eye irritation/glaucoma 02/06/19 14:00 03/08/19 13:59 Ondansetron HCl (Zofran) 4 mg Q6H PRN IVP Nausea & Vomiting 02/06/19 14:00 03/07/19 13:59 Pantoprazole (Protonix) 40 mg EVERY 12 HOURS ORAL 02/06/19 21:00 03/07/19 20:59 02/06/19 20:54 Polyethylene Glycol (Miralax) 17 gm HSPRN PRN ORAL Constipation 02/06/19 21:00 03/08/19 20:59 Quetiapine Fumarate (SEROquel) 100 mg BEDTIME ORAL 02/06/19 21:00 03/08/19 20:59 02/06/19 20:54 Timolol Maleate (Timoptic 0.5% Op Soln) 1 drop TWICE A DAY BOTH EYES 02/06/19 18:00 03/08/19 08:59 02/06/19 17:22 Zolpidem Tartrate (Ambien) 5 mg HSPRN PRN ORAL Insomnia 02/07/19 21:00 02/12/19 20:59 Allergies: Coded Allergies: HALOPERIDOL (Unverified Allergy, Unknown, 07/28/14) MORPHINE (Unverified Allergy, Unknown, 07/28/14) Subjective awake, alert, responsive, NAD. Objective Last Vital Signs Date Time Temp Pulse Resp B/P (MAP) Pulse Ox O2 Delivery O2 Flow Rate FiO2 02/06/19 22:09 Room Air 02/06/19 21:44 97.9 02/06/19 20:00 78 20 118/62 (80) 02/06/19 16:00 97 Laboratory Tests Test 02/06/19 05:58 White Blood Count 7.0 K/UL (4.8-10.8) Red Blood Count 4.42 M/UL (4.70-6.10) L Hemoglobin 13.4 G/DL (14.2-18.0) L Hematocrit 42.2 % (42.0-52.0) Mean Corpuscular Volume 95 FL (80-99) Mean Corpuscular Hemoglobin 30.3 PG (27.0-31.0) Mean Corpuscular Hemoglobin Concent 31.8 G/DL (32.0-36.0) L Red Cell Distribution Width 12.2 % (11.6-14.8) Platelet Count 300 K/UL (150-450) Mean Platelet Volume 7.4 FL (6.5-10.1) Neutrophils (%) (Auto) 49.2 % (45.0-75.0) Lymphocytes (%) (Auto) 33.3 % (20.0-45.0) Monocytes (%) (Auto) 16.1 % (1.0-10.0) H Eosinophils (%) (Auto) 0.6 % (0.0-3.0) Basophils (%) (Auto) 0.8 % (0.0-2.0) Sodium Level 138 MMOL/L (136-145) Potassium Level 4.0 MMOL/L (3.5-5.1) Chloride Level 106 MMOL/L (98-107) Carbon Dioxide Level 25 MMOL/L (21-32) Blood Urea Nitrogen 17 mg/dL (7-18) Creatinine 1.1 MG/DL (0.55-1.30) Estimat Glomerular Filtration Rate > 60 mL/min (>60) Glucose Level 111 MG/DL (74-106) H Hemoglobin A1c 5.5 % (4.3-6.0) Uric Acid 5.4 MG/DL (2.6-7.2) Calcium Level 8.5 MG/DL (8.5-10.1) Phosphorus Level 3.2 MG/DL (2.5-4.9) Magnesium Level 2.2 MG/DL (1.8-2.4) Total Bilirubin 0.5 MG/DL (0.2-1.0) Gamma Glutamyl Transpeptidase 34 U/L (5-85) Aspartate Amino Transf (AST/SGOT) 111 U/L (15-37) H Alanine Aminotransferase (ALT/SGPT) 60 U/L (12-78) Alkaline Phosphatase 49 U/L (46-116) Total Creatine Kinase 1971 U/L (26-308) H Troponin I 0.007 ng/mL (0.000-0.056) C-Reactive Protein, Quantitative < 0.4 mg/dL (0.00-0.90) Pro-B-Type Natriuretic Peptide 101 pg/mL (0-125) Total Protein 6.5 G/DL (6.4-8.2) Albumin 3.2 G/DL (3.4-5.0) L Globulin 3.3 g/dL Albumin/Globulin Ratio 1.0 (1.0-2.7) Triglycerides Level 69 MG/DL (30-150) Cholesterol Level 144 MG/DL (< 200) LDL Cholesterol 79 mg/dL (<100) HDL Cholesterol 45 MG/DL (40-60) Cholesterol/HDL Ratio 3.2 (3.3-4.4) L Thyroid Stimulating Hormone (TSH) 0.952 uiU/mL (0.358-3.740) Microbiology Date/Time Source Procedure Growth Status 02/05/19 21:00 Sputum Gram Stain - Final Resulted 02/05/19 21:00 Sputum Sputum Culture Pending Resulted Intake and Output 02/06/19 02/07/19 19:00 07:00 Intake Total 1920 ml Balance 1920 ml Intake Oral 320 ml IV Total 1600 ml # Voids 1 # Bowel Movements 1 1 Objective General: No acute distress, awake and alert HEENT: NCAT, sclera anicteric, PERRL, EOMI. Neck: Supple, no significant jugular venous distention, Lungs: Good inspiratory effort, no accessory muscle use, clear to auscultation bilaterally, no Wheeze or Rales. Heart: Regular rate and rhythm, normal S1/S2, no murmurs/gallops Abdomen: soft, nontender, nondistended. Normoactive bowel sounds. / Rectal: Refused and deferred. Extremities: No Cyanosis , clubbing or edema. Neuro: A&O x 3, Able to move all extremities Skin: warm, no rashes or lesions Psych: Normal mood and affect Assessment/Plan Assessment/Plan 1. Severe depression with suicidal ideation. 2. Acute kidney injury, most likely secondary to dehydration and prerenal azotemia. 3. Rhabdomyolysis.. 4. Polysubstance abuse with THC as well as cocaine. 5. History of hypertension. 6. Dyslipidemia. PLAN: Transfer to medical floor. IV hydration. Monitor laboratory Code status: Full Code. DVT prophylaxis: heparin subcutaneous. Psychiatry consultation with Dr. Meade, Pulmonary Critical Care with Dr. Marcelino and Nephrology Dr. Tremaine Brown. Joey Marroquin MD Feb 07, 2019 00:01
[2019-02-07 04:00] VITALS: BP 123/78
[2019-02-07 06:34] LABS: EOSINOPHILS % (AUTO) 1.5 % (0.0-3.0); HEMATOCRIT 40.2 % (42.0-52.0); LYMPHOCYTES % (AUTO) 40.9 % (20.0-45.0); MEAN CORPUSCULAR VOLUME 95 FL (80-99); MONOCYTES % (AUTO) 12.1 % (1.0-10.0); NEUTROPHILS % (AUTO) 44.6 % (45.0-75.0); PLATELET COUNT 283 K/UL (150-450); RED BLOOD COUNT 4.22 M/UL (4.70-6.10); RED CELL DISTRIBUTION WIDTH 12.3 % (11.6-14.8); WHITE BLOOD COUNT 7.6 K/UL (4.8-10.8)
[2019-02-07 06:54] LABS: ALANINE AMINOTRANSFERASE 49 U/L (12-78); ALBUMIN 3.2 G/DL (3.4-5.0); ALBUMIN/GLOBULIN RATIO 1.1 (1.0-2.7); ALKALINE PHOSPHATASE 43 U/L (46-116); ANION GAP 7 mmol/L (5-15); ASPARTATE AMINO TRANSFERASE 55 U/L (15-37); BILIRUBIN,TOTAL 0.3 MG/DL (0.2-1.0); BLOOD UREA NITROGEN 13 mg/dL (7-18); CALCIUM 8.4 MG/DL (8.5-10.1); CARBON DIOXIDE 27 MMOL/L (21-32); CHLORIDE 104 MMOL/L (98-107); CREATINE KINASE 640 U/L (26-308); CREATININE 1.2 MG/DL (0.55-1.30); PHOSPHORUS 2.9 MG/DL (2.5-4.9); POTASSIUM 3.6 MMOL/L (3.5-5.1); SODIUM 138 MMOL/L (136-145)
--- NOTE | 2019-02-07 07:00 | NUR ---
HAND-OFF: Report given to Sally STYLES.
[2019-02-07 08:00] VITALS: BP 140/80
--- NOTE | 2019-02-07 08:00 | NUR ---
NURSE NOTES: Patient alert and oriented,respirations unlabored.IV fluids infusing as ordered.No complaints at this time.Patient ate breakfast.Call light within reach.
[2019-02-07] MEDS: Heparin 5000 units/ml inj SUBQ SCH (09:00)
[2019-02-07] MEDS ORDERED: ARIPiprazole 10mg tab ORAL SCH (09:00)
[2019-02-07] MEDS ORDERED: BuPROPion XL 150mg tab ORAL SCH ×2 (09:00)
[2019-02-07] MEDS: Docusate 100mg cap ORAL SCH ×2 (09:00→13:00)
[2019-02-07] MEDS ORDERED: Depakote 500mg tab ORAL SCH (09:00)
[2019-02-07] MEDS: Timolol 0.5% Op Soln 2.5ml BOTH EYES SCH (09:10)
[2019-02-07] MEDS: Dorzolamide 2% 10ml Btl BOTH EYES SCH ×2 (09:16→13:00)
[2019-02-07] MEDS: D5 1/2NS w/KCl 20mEq 1,000 ML IV SCH (09:17)
--- NOTE | 2019-02-07 11:30 | NUR ---
PT NOTE Attempted x2 to see patient for PT treatment. On first attempt patient stated he was irritated, was waiting for a sandwich and declined to participate. On second attempt patient stated he was sleepy, that he was able to walk and declined to participate. Sally STYLES notified.
[2019-02-07 12:00] VITALS: BP 123/88
--- NOTE | 2019-02-07 12:57 | Pulmonology Progress Note ---
Assessment/Plan Problems: (1) Rhabdomyolysis (2) ATN (acute tubular necrosis) (3) Depression (4) Polysubstance abuse (5) Non-compliance (6) Lives in homeless care home Assessment/Plan doing much better symptomatic treatment check cpk and uric acid renal evaluation appreciated ativan for anxiety. resume psychiatric meds dvt prophylaxis. Subjective ROS Limited/Unobtainable: No Constitutional: Reports: no symptoms HEENT: Repors: no symptoms Allergies: Coded Allergies: HALOPERIDOL (Unverified Allergy, Unknown, 07/28/14) MORPHINE (Unverified Allergy, Unknown, 07/28/14) Objective Last 24 Hour Vital Signs Date Time Temp Pulse Resp B/P (MAP) Pulse Ox O2 Delivery O2 Flow Rate FiO2 02/07/19 10:06 Room Air 02/07/19 08:00 98.0 78 17 140/80 (100) 97 02/07/19 04:00 97.0 73 20 123/78 (93) 02/07/19 00:00 98.3 77 20 104/70 (81) 02/06/19 22:09 Room Air 02/06/19 21:44 97.9 02/06/19 20:00 98.6 78 20 118/62 (80) 02/06/19 16:00 97.9 84 18 125/85 (98) 97 02/06/19 14:00 98.2 88 19 129/90 (103) 98 Intake and Output 02/06/19 02/07/19 19:00 07:00 Intake Total 1920 ml 675 ml Balance 1920 ml 675 ml Intake Oral 320 ml 300 ml IV Total 1600 ml 375 ml # Voids 1 4 # Bowel Movements 1 1 General Appearance: WD/WN HEENT: normocephalic, atraumatic Respiratory/Chest: chest wall non-tender, lungs clear Cardiovascular: normal peripheral pulses, regular rhythm Abdomen: soft, non tender, no organomegaly Genitourinary: normal external genitalia Extremities: no clubbing Skin: no lesions Microbiology Date/Time Source Procedure Growth Status 02/05/19 21:00 Sputum Gram Stain - Final Resulted 02/05/19 21:00 Sputum Sputum Culture - Preliminary NORMAL UPPER RESPIRATORY JEROME AT 24 ... Resulted 02/05/19 11:47 Nasal Nares MRSA Culture - Final NO METHICILLIN RESISTANT STAPH AUREUS... Complete 02/05/19 11:47 Rectum VRE Culture - Final NO VANCOMYCIN RESISTANT ENTEROCOCCUS ... Complete 02/05/19 11:47 Rectum - Final NO CARBAPENEM-RESISTANT ENTEROBACTERI... Complete Laboratory Tests 02/07/19 05:15: White Blood Count 7.6, Red Blood Count 4.22L, Hemoglobin 13.0L, Hematocrit 40.2L , Mean Corpuscular Volume 95, Mean Corpuscular Hemoglobin 30.7, Mean Corpuscular Hemoglobin Concent 32.3, Red Cell Distribution Width 12.3, Platelet Count 283, Mean Platelet Volume 7.0, Neutrophils (%) (Auto) 44.6L, Lymphocytes ( %) (Auto) 40.9, Monocytes (%) (Auto) 12.1H, Eosinophils (%) (Auto) 1.5, Basophils (%) (Auto) 1.0, Erythrocyte Sedimentation Rate 20, Sodium Level 138, Potassium Level 3.6, Chloride Level 104, Carbon Dioxide Level 27, Anion Gap 7, Blood Urea Nitrogen 13, Creatinine 1.2, Estimat Glomerular Filtration Rate > 60 , Glucose Level 105, Uric Acid 4.4, Calcium Level 8.4L, Phosphorus Level 2.9, Magnesium Level 2.0, Total Bilirubin 0.3, Gamma Glutamyl Transpeptidase 24, Aspartate Amino Transf (AST/SGOT) 55H, Alanine Aminotransferase (ALT/SGPT) 49, Alkaline Phosphatase 43L, Total Creatine Kinase 640H, C-Reactive Protein, Quantitative < 0.4, Total Protein 6.2L, Albumin 3.2L, Globulin 3.0, Albumin/ Globulin Ratio 1.1 Current Medications Medications (Trade) Dose Ordered Sig/Pily Route PRN Reason Start Time Stop Time Status Last Admin Dose Admin Acetaminophen (Tylenol) 650 mg Q4H PRN ORAL T>100.5 02/06/19 14:00 03/07/19 13:59 Acetaminophen (Tylenol) 650 mg Q6H PRN ORAL Mild Pain (Pain Scale 1-3) 02/06/19 14:00 03/07/19 13:59 Aripiprazole (Abilify) 20 mg DAILY ORAL 02/07/19 09:00 03/08/19 10:59 02/07/19 09:10 Bupropion HCl (Wellbutrin XL) 150 mg DAILY ORAL 02/07/19 09:00 03/09/19 08:59 02/07/19 09:12 Clonidine HCl (Catapres Tab) 0.1 mg Q4H PRN ORAL for BP over 165 syst 02/06/19 14:00 03/07/19 13:59 Dextrose (Dextrose 50%) 25 ml Q30M PRN IV Hypoglycemia 02/06/19 13:45 03/07/19 12:30 Dextrose (Dextrose 50%) 50 ml Q30M PRN IV hypoglycemia 02/06/19 13:45 03/07/19 12:44 Dextrose/ Electrolytes 1,000 ml @ 75 mls/hr [id number] IV 02/06/19 18:00 03/08/19 17:59 02/07/19 09:17 Divalproex Sodium (Depakote) 1,500 mg DAILY ORAL 02/07/19 09:00 03/08/19 10:59 Docusate Sodium (Colace) 100 mg THREE TIMES A DAY ORAL 02/06/19 18:00 03/07/19 17:59 02/06/19 17:21 Dorzolamide HCl (Trusopt) 1 drop THREE TIMES A DAY BOTH EYES 02/06/19 18:00 03/08/19 08:59 02/07/19 09:16 Heparin Sodium (Porcine) (Heparin 5000 units/ml) 5,000 units EVERY 12 HOURS SUBQ 02/06/19 21:00 03/07/19 20:59 Ketorolac Tromethamine (Toradol 30mg) 15 mg Q6H PRN IV Severe Pain (Pain Scale 7-10) 02/06/19 14:00 02/11/19 13:59 02/06/19 21:04 Lorazepam (Ativan 2mg/ml 1ml) 0.5 mg Q4H PRN IV For Anxiety 02/06/19 14:00 02/12/19 13:59 Naphazoline HCl (Vasocon) 1 drop Q4H PRN BOTH EYES eye irritation/glaucoma 02/06/19 14:00 03/08/19 13:59 Ondansetron HCl (Zofran) 4 mg Q6H PRN IVP Nausea & Vomiting 02/06/19 14:00 03/07/19 13:59 Pantoprazole (Protonix) 40 mg EVERY 12 HOURS ORAL 02/06/19 21:00 03/07/19 20:59 02/07/19 09:12 Polyethylene Glycol (Miralax) 17 gm HSPRN PRN ORAL Constipation 02/06/19 21:00 03/08/19 20:59 Quetiapine Fumarate (SEROquel) 100 mg BEDTIME ORAL 02/06/19 21:00 03/08/19 20:59 02/06/19 20:54 Timolol Maleate (Timoptic 0.5% Op Soln) 1 drop TWICE A DAY BOTH EYES 02/06/19 18:00 03/08/19 08:59 02/07/19 09:10 Zolpidem Tartrate (Ambien) 5 mg HSPRN PRN ORAL Insomnia 02/07/19 21:00 02/12/19 20:59 Vale Marcelino MD Feb 07, 2019 12:57
[2019-02-07] MEDS ORDERED: SEROQUEL100 MG ORAL (12:59)
[2019-02-07] MEDS ORDERED: WELLBUTRIN XL150 M3 ORAL (12:59)
[2019-02-07] MEDS ORDERED: DEPAKOTE500 MG ORAL (12:59)
[2019-02-07] MEDS ORDERED: ABILIFY10 MG ORAL (12:59)
--- NOTE | 2019-02-07 13:53 | Nephrology Progress Note ---
Assessment/Plan Problem List: (1) Rhabdomyolysis (2) Polysubstance abuse (3) ATN (acute tubular necrosis) Assessment Acute Renal failure- Rhabdomyolysis Poly substance abuse Plan Hydrate- PRN clonidin for high BP Monitor renal parameters per orders Subjective ROS Limited/Unobtainable: No Constitutional: Reports: malaise Objective Objective Last 24 Hour Vital Signs Date Time Temp Pulse Resp B/P (MAP) Pulse Ox O2 Delivery O2 Flow Rate FiO2 02/07/19 10:06 Room Air 02/07/19 08:00 98.0 78 17 140/80 (100) 97 02/07/19 04:00 97.0 73 20 123/78 (93) 02/07/19 00:00 98.3 77 20 104/70 (81) 02/06/19 22:09 Room Air 02/06/19 21:44 97.9 02/06/19 20:00 98.6 78 20 118/62 (80) 02/06/19 16:00 97.9 84 18 125/85 (98) 97 02/06/19 14:00 98.2 88 19 129/90 (103) 98 Intake and Output 02/06/19 02/07/19 19:00 07:00 Intake Total 1920 ml 675 ml Balance 1920 ml 675 ml Intake Oral 320 ml 300 ml IV Total 1600 ml 375 ml # Voids 1 4 # Bowel Movements 1 1 Laboratory Tests 02/07/19 05:15: White Blood Count 7.6, Red Blood Count 4.22L, Hemoglobin 13.0L, Hematocrit 40.2L , Mean Corpuscular Volume 95, Mean Corpuscular Hemoglobin 30.7, Mean Corpuscular Hemoglobin Concent 32.3, Red Cell Distribution Width 12.3, Platelet Count 283, Mean Platelet Volume 7.0, Neutrophils (%) (Auto) 44.6L, Lymphocytes ( %) (Auto) 40.9, Monocytes (%) (Auto) 12.1H, Eosinophils (%) (Auto) 1.5, Basophils (%) (Auto) 1.0, Erythrocyte Sedimentation Rate 20, Sodium Level 138, Potassium Level 3.6, Chloride Level 104, Carbon Dioxide Level 27, Anion Gap 7, Blood Urea Nitrogen 13, Creatinine 1.2, Estimat Glomerular Filtration Rate > 60 , Glucose Level 105, Uric Acid 4.4, Calcium Level 8.4L, Phosphorus Level 2.9, Magnesium Level 2.0, Total Bilirubin 0.3, Gamma Glutamyl Transpeptidase 24, Aspartate Amino Transf (AST/SGOT) 55H, Alanine Aminotransferase (ALT/SGPT) 49, Alkaline Phosphatase 43L, Total Creatine Kinase 640H, C-Reactive Protein, Quantitative < 0.4, Total Protein 6.2L, Albumin 3.2L, Globulin 3.0, Albumin/ Globulin Ratio 1.1 Height (Feet): 5 Height (Inches): 10.00 Weight (Pounds): 190 General Appearance: no apparent distress Objective no change Tremaine Brown MD Feb 07, 2019 13:53
--- NOTE | 2019-02-07 14:03 | NUR ---
RD ASSESSMENT & RECOMMENDATIONS SEE CARE ACTIVITY FOR COMPLETE ASSESSMENT DAILY ESTIMATED NEEDS: Needs based on ARF, 75kg adj 25-30 kcals/kg 3777-6977 total kcals 1-1.5 g protein/kg 75-113 g total protein 25-30 mL/kg 4760-2463 total fluid mLs NUTRITION DIAGNOSIS: 1) Altered nutrition related lab values r/t clinical status, rhabdo, ARF, as evidenced by elev creat kinase (now trending down 640), elev LFT's, (+) tox for cocaine, Mj, elev BUN and creat on adm now wnl. CURRENT DIET:Renal PO DIET RECOMMENDATIONS: LOW NA diet ADDITIONAL RECOMMENDATIONS: 1) Standing weight as able 2) snacks in b/w meals 3) Provided diet edu for renal diet (02/07)
--- NOTE | 2019-02-07 14:45 | NUR ---
NURSE NOTES: Patient discharge,IV removed by charged Nurse,patient in a hurry did not sign or take prescriptions. Addendum: 02/07/19 at 1648 by SACHA LORA RN RN NURSE NOTES: Homless packet was signed and witness by Charge Nurse Madyson.
--- NOTE | 2019-02-07 14:55 | Internal Med Progress Note ---
Subjective Physician Name Joey Marroquin Attending Physician Joey Marroquin MD Allergies: Coded Allergies: HALOPERIDOL (Unverified Allergy, Unknown, 07/28/14) MORPHINE (Unverified Allergy, Unknown, 07/28/14) Subjective awake, alert, responsive, NAD, LFT improving. Objective Last Vital Signs Date Time Temp Pulse Resp B/P (MAP) Pulse Ox O2 Delivery O2 Flow Rate FiO2 02/07/19 10:06 Room Air 02/07/19 08:00 98.0 78 17 140/80 (100) 97 Laboratory Tests Test 02/07/19 05:15 White Blood Count 7.6 K/UL (4.8-10.8) Red Blood Count 4.22 M/UL (4.70-6.10) L Hemoglobin 13.0 G/DL (14.2-18.0) L Hematocrit 40.2 % (42.0-52.0) L Mean Corpuscular Volume 95 FL (80-99) Mean Corpuscular Hemoglobin 30.7 PG (27.0-31.0) Mean Corpuscular Hemoglobin Concent 32.3 G/DL (32.0-36.0) Red Cell Distribution Width 12.3 % (11.6-14.8) Platelet Count 283 K/UL (150-450) Mean Platelet Volume 7.0 FL (6.5-10.1) Neutrophils (%) (Auto) 44.6 % (45.0-75.0) L Lymphocytes (%) (Auto) 40.9 % (20.0-45.0) Monocytes (%) (Auto) 12.1 % (1.0-10.0) H Eosinophils (%) (Auto) 1.5 % (0.0-3.0) Basophils (%) (Auto) 1.0 % (0.0-2.0) Erythrocyte Sedimentation Rate 20 MM/HR (0-20) Sodium Level 138 MMOL/L (136-145) Potassium Level 3.6 MMOL/L (3.5-5.1) Chloride Level 104 MMOL/L (98-107) Carbon Dioxide Level 27 MMOL/L (21-32) Anion Gap 7 mmol/L (5-15) Blood Urea Nitrogen 13 mg/dL (7-18) Creatinine 1.2 MG/DL (0.55-1.30) Estimat Glomerular Filtration Rate > 60 mL/min (>60) Glucose Level 105 MG/DL (74-106) Uric Acid 4.4 MG/DL (2.6-7.2) Calcium Level 8.4 MG/DL (8.5-10.1) L Phosphorus Level 2.9 MG/DL (2.5-4.9) Magnesium Level 2.0 MG/DL (1.8-2.4) Total Bilirubin 0.3 MG/DL (0.2-1.0) Gamma Glutamyl Transpeptidase 24 U/L (5-85) Aspartate Amino Transf (AST/SGOT) 55 U/L (15-37) H Alanine Aminotransferase (ALT/SGPT) 49 U/L (12-78) Alkaline Phosphatase 43 U/L (46-116) L Total Creatine Kinase 640 U/L (26-308) H C-Reactive Protein, Quantitative < 0.4 mg/dL (0.00-0.90) Total Protein 6.2 G/DL (6.4-8.2) L Albumin 3.2 G/DL (3.4-5.0) L Globulin 3.0 g/dL Albumin/Globulin Ratio 1.1 (1.0-2.7) Microbiology Date/Time Source Procedure Growth Status 02/05/19 21:00 Sputum Gram Stain - Final Resulted 02/05/19 21:00 Sputum Sputum Culture - Preliminary NORMAL UPPER RESPIRATORY JEROME AT 24 ... Resulted 02/05/19 11:47 Nasal Nares MRSA Culture - Final NO METHICILLIN RESISTANT STAPH AUREUS... Complete 02/05/19 11:47 Rectum VRE Culture - Final NO VANCOMYCIN RESISTANT ENTEROCOCCUS ... Complete 02/05/19 11:47 Rectum - Final NO CARBAPENEM-RESISTANT ENTEROBACTERI... Complete Intake and Output 02/06/19 02/07/19 19:00 07:00 Intake Total 1920 ml 675 ml Balance 1920 ml 675 ml Intake Oral 320 ml 300 ml IV Total 1600 ml 375 ml # Voids 1 4 # Bowel Movements 1 1 Objective General: No acute distress, awake and alert HEENT: NCAT, sclera anicteric, PERRL, EOMI. Neck: Supple, no significant jugular venous distention, Lungs: Good inspiratory effort, no accessory muscle use, clear to auscultation bilaterally, no Wheeze or Rales. Heart: Regular rate and rhythm, normal S1/S2, no murmurs/gallops Abdomen: soft, nontender, nondistended. Normoactive bowel sounds. / Rectal: Refused and deferred. Extremities: No Cyanosis , clubbing or edema. Neuro: A&O x 3, Able to move all extremities Skin: warm, no rashes or lesions Psych: Normal mood and affect Assessment/Plan Assessment/Plan 1. Severe depression with suicidal ideation. 2. Acute kidney injury, most likely secondary to dehydration and prerenal azotemia. 3. Rhabdomyolysis.. 4. Polysubstance abuse with THC as well as cocaine. 5. History of hypertension. 6. Dyslipidemia. PLAN: Transfer to medical floor. IV hydration. Monitor laboratory Code status: Full Code. DVT prophylaxis: heparin subcutaneous. Psychiatry consultation with Dr. Meade, Pulmonary Critical Care with Dr. Marcelino and Nephrology Dr. Tremaine Brown. [place] home today. Joey Marroquin MD Feb 07, 2019 14:55
--- NOTE | 2019-02-07 16:06 | Cardiology Report ---
APPROVED REPORT EKG Measurement Heart [id number] Normal sinus rhythm Prolonged QT Abnormal ECG
--- NOTE | 2019-02-07 18:18 | NUR ---
HOMELESS COORDINATOR HC spoke with patient and patient is alert and oriented. Patient does have a contact number . Patient is currently living at [place] [id number] . Patient states he has been living there for one month, and has been homeless since August. Patient states his homelessness is due to trouble in his marriage. Patient has no personal shopper. Patient states he receives 12/hr and is currently working at [employer]. Patient states he has a little substance abuse problem but don't want to go into details. Patient states he suffer from depression. Patient plan is to return to [facility] upon discharge. Patient is requesting a taxi voucher. Patient states he will make his own follow-up appointment at the [facility]. Patient continues to require medical intervention. Will continue to monitor and assist as needed.
--- NOTE | 2019-02-07 19:33 | NUR ---
NURSE NOTES: attempts made to contact patient aunt to get message to patient he did not take his prescription but not answer.[employer],no answer.
[2019-02-07] MEDS ORDERED: Zolpidem 5mg tab ORAL PRN (21:00)
--- NOTE | 2019-02-08 21:08 | Discharge Summary ---
Discharge Summary Discharge Summary _ DATE OF ADMISSION: 02/05/2019 DATE OF DISCHARGE: 02/07/2019 DISCHARGED BY: Dr. Marroquin REASON FOR ADMISSION: 53 years old male with past medical history significant for hypertension, dyslipidemia, polysubstance abuse, depression with prior history of suicidal ideation about 4 years ago, presented to the hospital in a disheveled condition claiming that he has suicidal thoughts and requesting pain meds. He had been off his psychiatric medications. Patient denied chest pain and shortness of breath. No nausea or vomiting. He denied fever and chills. Upon evaluation laboratory work-up revealed WBC 13, stable hemoglobin and hematocrit. Stable electrolytes. BUN 35, creatinine 1.4. Total bilirubin 1.3. AST 287, ALT 97, total CK 8114. Urine drug screen was positive for cocaine and marijuana. Blood level for salicylates, acetaminophen and alcohol were all negative. Urinalysis revealed +3 protein, +3 ketones, +4 blood, +1 leukocyte esterase, 2 -4 RBC moderate mucosa. Chest x-ray revealed no acute cardiopulmonary pathology. Patient admitted for further treatment for acute tubular necrosis and rhabdomyolysis CONSULTANTS: pulmonary/critical care Dr. Marcelino research manufacturing operator Dr. Brown [facility] COURSE: Patient initially admitted to monitored floor. Patient started on aggressive IV hydration. Renal parameters, electrolytes and CK were closely monitored. DVT prophylaxis provided. Leukocytosis resolved on the next day. With IV hydration BUN from 35 down to 13 and creatinine from 1.4 down to 1.2. AST down to 55, ALT \\ down to 49. CK down to 640. Lipid panel stable Patient's psychiatric medication were resumed. GI prophylaxis provided. Blood pressure was closely monitored. Clonidine was on board as needed. Blood pressure remained stable, no need for routine antihypertensive medication at this time. day care worker met with patient. Patient homeless since 2017. Patient working full-time at the [employer]. Patient resides at a homeless senior care [facility]. Per patient, facility has multiple drug abusers, which enables him to continue his cocaine addiction. Patient stated, that [facility] and [facility]. Patient reported long history of cocaine abuse. Patient admitted not taking his psychiatric medication as prescribed. He denied suicidal or homicidal ideation , even though he was depressed. He did not feel that , psychiatric inpatient evaluation was required. Patient [facility]. Placement upon discharge was addressed. Patient will return to [facility]. Patient provided emergency contact. Transportation was arranged upon discharge. Patient was counseled on abstinence from illicit street drugs. Patient was stable for discharge. FINAL DIAGNOSES: Rhabdomyolysis Polysubstance abuse Acute tubular necrosis-resolved Noncompliance Depression History of hypertension Dyslipidemia DISCHARGE MEDICATIONS: See Medication Reconciliation list. DISCHARGE INSTRUCTIONS: Patient was discharge to homeless senior care. Patient was encouraged to follow-up with primary care provider in 1 week. I have been assigned to dictate discharge summary for this account. I was not involved in the patient's management. Lilly East NP Feb 08, 2019 21:08
== END 2019-02-07 14:47 | disposition home or self-care (01) | DRG 683 ==
LOC: EDBD 09:09 → EMR 10:00 → 2E 11:24 → EDBEDREQ 12:29 → 2E 14:29 → 4E 02-06 13:41
DX: N17.0 Acute kidney failure with tubular necrosis (principal); R45.851 Suicidal ideations; M62.82 Rhabdomyolysis; Z88.8 Allergy status to other drugs, medicaments and biological substances; F19.10 Other psychoactive substance abuse, uncomplicated; I10 Essential (primary) hypertension; E78.5 Hyperlipidemia, unspecified; Z88.6 Allergy status to analgesic agent; F14.10 Cocaine abuse, uncomplicated; F32.9 Major depressive disorder, single episode, unspecified; F12.10 Cannabis abuse, uncomplicated; Z91.14 Patient's other noncompliance with medication regimen; Z59.0 Homelessness; E86.0 Dehydration
CPT/HCPCS: 36415; 71045; 80053; 80061; 80307; 80329; 81003; 82248; 82550; 82977; 83036; 83735; 83880; 84100; 84443; 84484; 84550; 85025; 85651; 86140; 87070; 87081; 87205; 93005; 96360; 99285; C9399; J8499

== ENCOUNTER 2019-04-27 09:44 | Emergency (ER) | payer BC, OTHER ==
[~2019-04-27] VITALS: Ht 177.8 cm; Wt 88.5 kg
[~2019-04-27 09:44] MED LIST changes: +ABILIFY10 MG ORAL; +DEPAKOTE500 MG ORAL; +WELLBUTRIN XL150 M3 ORAL
[2019-04-27 09:47] VITALS: BP 154/76
--- NOTE | 2019-04-27 09:47 | NUR ---
ED Nurse Note: Pt brought in by [facility] 26 due to chest pain that started after he took large amounts of cocaine. Pt called [employer] and reported that he wanted to hurt himself by taking his seroquel. Pt states he hears voices telling him "adventures," but unable to specify. Pt is AAO x4 and ambulates with steady gait with non labored breathing. Pt is speaking in clear sentences and is calm and cooperative at this time.
--- NOTE | 2019-04-27 09:58 | Emergency Room Report ---
History of Present Illness General Chief Complaint: Chest Pain Source: Patient, EMS (Regis Billings MD) Present Illness HPI Disclaimer: Please note that this report is being documented using DRAGON technology. This can lead to erroneous entry secondary to incorrect interpretation by the dictating instrument. HPI: This a 53-year-old male with a history of cocaine abuse, depression presenting for evaluation of chest pain and suicidality. The patient states he has been feeling depressed over the past few days regarding a changes in his housing situation and a divorce. Because of the depression he states he smoked approximately $500 worth of cocaine over the past few days. A proximal me 3 AM this morning he began to experience a dull ache over the center of his chest that was nonradiating but associated with mild shortness of breath. He has no history of CAD and states he had a clean angiogram in 2010. Denies any respiratory illness and does not use any inhalers or steroids. He does smoke marijuana but denies any tobacco or alcohol use. He called police this morning stating that he was going to kill himself by overdosing on Seroquel which she has prescribed for depression. On police evaluation he also reported the chest pain and EMS was called to transport him to the hospital. He was tachycardic en route but otherwise had stable vital signs. Continues to complain of chest pain that is been constant since starting at 3 AM. Reports persistent suicidality. Denies homicidality. PMH: Cocaine abuse, depression, anxiety PSH: Small bowel obstruction status post resection Allergies: Morphine, Haldol Social Hx: Marijuana use, denies tobacco use, cocaine abuse (Regis Billings MD) Allergies: Coded Allergies: HALOPERIDOL (Unverified Allergy, Unknown, 07/28/14) MORPHINE (Unverified Allergy, Unknown, 07/28/14) Nursing Documentation-PMH Hx Cardiac Problems: No Hx Cancer: No Hx Gastrointestinal Problems: Yes Hx Neurological Problems: No (Regis Billings MD) Review of Systems All Other Systems: negative except mentioned in HPI (Regis Billings MD) Physical Exam Vital Signs Date Time Temp Pulse Resp B/P (MAP) Pulse Ox O2 Delivery O2 Flow Rate FiO2 04/27/19 09:37 98.2 92 18 160/90 (113) 99 Room Air General: Awake and alert, no acute distress HEENT: NC/AT. EOMI. PERRLA. Anicteric sclera. Dry mixed membranes Neck: Supple, trachea midline Chest Wall: Tenderness to palpation over the sternum. No deformity, no crepitus Cardiovascular: Tachycardic. S1 and S2 normal. No murmur appreciated Resp: Normal work of breathing. No cough, wheezing or crackles appreciated Abdomen: Abdomen is soft, nondistended. Nontender Skin: Intact. No abrasions, laceration or rash over the exposed skin MSK: Normal tone and bulk. Moving all extremities. No obvious deformity. Neuro: Awake and alert. Mentating appropriately. Reports suicidality, denies homicidality (Regis Billings MD) Medical Decision Making Diagnostic Impression: Primary Impression: Chest pain Qualified Codes: R07.9 - Chest pain, unspecified Additional Impressions: Polysubstance abuse Suicidal ideation ER Course This 53-year-old male presenting to the ED for evaluation of chest pain and suicidality. We will start broad metabolic and cardiac work-up. His EKG shows sinus tachycardia but otherwise no ischemic changes. May be cocaine induced vasospasm, pleurisy, pneumothorax, pneumonia or other causes. Will require psychiatric evaluation as well. Aspirin and benzodiazepines ordered. Laboratory Tests Test 04/27/19 08:10 04/27/19 11:33 White Blood Count 12.3 K/UL (4.8-10.8) H Red Blood Count 4.65 M/UL (4.70-6.10) L Hemoglobin 14.3 G/DL (14.2-18.0) Hematocrit 44.1 % (42.0-52.0) Mean Corpuscular Volume 95 FL (80-99) Mean Corpuscular Hemoglobin 30.8 PG (27.0-31.0) Mean Corpuscular Hemoglobin Concent 32.4 G/DL (32.0-36.0) Red Cell Distribution Width 12.0 % (11.6-14.8) Platelet Count 320 K/UL (150-450) Mean Platelet Volume 7.2 FL (6.5-10.1) Neutrophils (%) (Auto) 67.3 % (45.0-75.0) Lymphocytes (%) (Auto) 19.2 % (20.0-45.0) L Monocytes (%) (Auto) 12.6 % (1.0-10.0) H Eosinophils (%) (Auto) 0.0 % (0.0-3.0) Basophils (%) (Auto) 0.9 % (0.0-2.0) Sodium Level 144 MMOL/L (136-145) Potassium Level 3.7 MMOL/L (3.5-5.1) Chloride Level 106 MMOL/L (98-107) Carbon Dioxide Level 28 MMOL/L (21-32) Anion Gap 10 mmol/L (5-15) Blood Urea Nitrogen 28 mg/dL (7-18) H Creatinine 1.3 MG/DL (0.55-1.30) Estimate Glomerular Filtration Rate > 60 mL/min (>60) Glucose Level 94 MG/DL (74-106) Calcium Level 9.4 MG/DL (8.5-10.1) Total Bilirubin 1.2 MG/DL (0.2-1.0) H Direct Bilirubin 0.2 MG/DL (0.0-0.3) Aspartate Amino Transferase (AST) 40 U/L (15-37) H Alanine Aminotransferase (ALT) 23 U/L (12-78) Alkaline Phosphatase 53 U/L (46-116) Total Creatine Kinase 1118 U/L (26-308) H Creatine Kinase MB 10.5 NG/ML (0.0-3.6) H Creatine Kinase MB Relative Index 0.9 Troponin I 0.012 ng/mL (0.000-0.056) Total Protein 8.3 G/DL (6.4-8.2) H Albumin 4.2 G/DL (3.4-5.0) Globulin 4.1 g/dL Albumin/Globulin Ratio 1.0 (1.0-2.7) Salicylates Level 0.4 ug/mL (2.8-20) L Acetaminophen Level < 2 MCG/ML (10-30) L Serum Alcohol < 3 mg/dL Urine Color Yellow Urine Appearance Clear Urine pH 5 (4.5-8.0) Urine Specific [employer] [place] 1.025 (1.005-1.035) Urine Protein 2+ (NEGATIVE) H Urine Glucose (UA) Negative (NEGATIVE) Urine Ketones 3+ (NEGATIVE) H Urine Blood Negative (NEGATIVE) Urine Nitrite Negative (NEGATIVE) Urine Bilirubin Negative (NEGATIVE) Urine Urobilinogen Normal MG/DL (0.0-1.0) Urine Leukocyte Esterase Negative (NEGATIVE) Urine RBC 0 /HPF (0 - 0) Urine WBC 0-2 /HPF (0 - 0) Urine Squamous Epithelial Cells Occasional /LPF Urine Bacteria Occasional /HPF (NONE) Urine Opiates Screen Negative (NEGATIVE) Urine Barbiturates Screen Negative (NEGATIVE) Phencyclidine (PCP) Screen Negative (NEGATIVE) Urine Amphetamines Screen Negative (NEGATIVE) Urine Benzodiazepines Screen Negative (NEGATIVE) Urine Cocaine Screen Positive (NEGATIVE) H Urine Marijuana (THC) Screen Positive (NEGATIVE) H (Regis Billings MD) Labs Test 04/27/19 08:10 04/27/19 11:33 04/27/19 16:00 White Blood Count 12.3 K/UL (4.8-10.8) Red Blood Count 4.65 M/UL (4.70-6.10) Hemoglobin 14.3 G/DL (14.2-18.0) Hematocrit 44.1 % (42.0-52.0) Mean Corpuscular Volume 95 FL (80-99) Mean Corpuscular Hemoglobin 30.8 PG (27.0-31.0) Mean Corpuscular Hemoglobin Concent 32.4 G/DL (32.0-36.0) Red Cell Distribution Width 12.0 % (11.6-14.8) Platelet Count 320 K/UL (150-450) Mean Platelet Volume 7.2 FL (6.5-10.1) Neutrophils (%) (Auto) 67.3 % (45.0-75.0) Lymphocytes (%) (Auto) 19.2 % (20.0-45.0) Monocytes (%) (Auto) 12.6 % (1.0-10.0) Eosinophils (%) (Auto) 0.0 % (0.0-3.0) Basophils (%) (Auto) 0.9 % (0.0-2.0) Sodium Level 144 MMOL/L (136-145) Potassium Level 3.7 MMOL/L (3.5-5.1) Chloride Level 106 MMOL/L (98-107) Carbon Dioxide Level 28 MMOL/L (21-32) Anion Gap 10 mmol/L (5-15) Blood Urea Nitrogen 28 mg/dL (7-18) Creatinine 1.3 MG/DL (0.55-1.30) Estimat Glomerular Filtration Rate > 60 mL/min (>60) Glucose Level 94 MG/DL (74-106) Calcium Level 9.4 MG/DL (8.5-10.1) Total Bilirubin 1.2 MG/DL (0.2-1.0) Direct Bilirubin 0.2 MG/DL (0.0-0.3) Aspartate Amino Transf (AST/SGOT) 40 U/L (15-37) Alanine Aminotransferase (ALT/SGPT) 23 U/L (12-78) Alkaline Phosphatase 53 U/L (46-116) Total Creatine Kinase 1118 U/L (26-308) 810 U/L (26-308) Creatine Kinase MB 10.5 NG/ML (0.0-3.6) Creatine Kinase MB Relative Index 0.9 Troponin I 0.012 ng/mL (0.000-0.056) 0.014 ng/mL (0.000-0.056) Total Protein 8.3 G/DL (6.4-8.2) Albumin 4.2 G/DL (3.4-5.0) Globulin 4.1 g/dL Albumin/Globulin Ratio 1.0 (1.0-2.7) Salicylates Level 0.4 ug/mL (2.8-20) Acetaminophen Level < 2 MCG/ML (10-30) Serum Alcohol < 3 mg/dL Urine Color Yellow Urine Appearance Clear Urine pH 5 (4.5-8.0) Urine Specific [employer] 1.025 (1.005-1.035) Urine Protein 2+ (NEGATIVE) Urine Glucose (UA) Negative (NEGATIVE) Urine Ketones 3+ (NEGATIVE) Urine Blood Negative (NEGATIVE) Urine Nitrite Negative (NEGATIVE) Urine Bilirubin Negative (NEGATIVE) Urine Urobilinogen Normal MG/DL (0.0-1.0) Urine Leukocyte Esterase Negative (NEGATIVE) Urine RBC 0 /HPF (0 - 0) Urine WBC 0-2 /HPF (0 - 0) Urine Squamous Epithelial Cells Occasional /LPF Urine Bacteria Occasional /HPF (NONE) Urine Opiates Screen Negative (NEGATIVE) Urine Barbiturates Screen Negative (NEGATIVE) Phencyclidine (PCP) Screen Negative (NEGATIVE) Urine Amphetamines Screen Negative (NEGATIVE) Urine Benzodiazepines Screen Negative (NEGATIVE) Urine Cocaine Screen Positive (NEGATIVE) Urine Marijuana (THC) Screen Positive (NEGATIVE) (Josh Levi MD) EKG Diagnostic Results EKG Time: 09:47 Rate: tachycardiac Rhythm: NSR ST Segments: no acute changes Other Impression Sinus tachycardia, normal rhythm, normal axis, normal intervals, no ST segment changes (Regis Billings MD) Rate: normal Rhythm: NSR ST Segments: no acute changes ASA given to the pt in ED: No (Josh Levi MD) Rhythm Strip Diag. Results Rhythm Strip Time: 09:47 EP Interpretation: yes Rate: 100s Rhythm: NSR, no PVC's, no ectopy (Regis Billings MD) EP Interpretation: yes Rhythm: NSR, no PVC's, no ectopy (Josh Levi MD) Chest X-Ray Diagnostic Results Chest X-Ray Diagnostic Results : # of Views/Limited/Complete: 1 View Indication: Chest Pain EP Interpretation: Yes PA Xray: Interpretation reviewed Interpretation: no consolidation, no effusion, no pneumothorax, no acute cardiopulmonary disease Impression: No acute disease Electronically Signed by: Electronically signed by Dr. Regis Billings (Regis Billings MD) Chest X-Ray Diagnostic Results : Chest X-Ray Ordered: Yes # of Views/Limited/Complete: 1 View Indication: Chest Pain EP Interpretation: Yes Interpretation: no consolidation, no effusion, no pneumothorax, no acute cardiopulmonary disease Impression: No acute disease Electronically Signed by: Electronically signed by Josh eLvi MD (Josh Levi MD) Reevaluation Time: 12:40 Last Vital Signs Date Time Temp Pulse Resp B/P (MAP) Pulse Ox O2 Delivery O2 Flow Rate FiO2 04/27/19 09:47 89 20 Room Air 04/27/19 09:37 98.2 160/90 (113) 99 Status: improved Reevaluation Impression EKG shows sinus tachycardia but otherwise no evidence of acute ischemia. Chest x-ray unremarkable with no infiltrates, no pneumothorax and normal mediastinum. Labs have returned largely within normal limits. Troponin is negative though CK is somewhat elevated. Patient tested positive for cocaine and THC. This would explain his elevated CK and his chest pain. His symptoms are improved. He is medically cleared for psychiatric evaluation of active suicidality. (Regis Billings MD) Status: improved (Josh Levi MD) Disposition: XFER SHT-TRM HOSP Condition: Serious Regis Billings MD Apr 27, 2019 09:58 Josh Levi MD Apr 27, 2019 20:55
[2019-04-27] MEDS ORDERED: Aspirin Baby 81mg ORAL ONE (10:00)
--- NOTE | 2019-04-27 10:00 | NUR ---
ED Nurse Note: Pt on a psych gown and belongings placed on psych locker #2.
[2019-04-27 10:15] LABS: BASOPHILS % (AUTO) 0.9 % (0.0-2.0); HEMATOCRIT 44.1 % (42.0-52.0); HEMOGLOBIN 14.3 G/DL (14.2-18.0); LYMPHOCYTES % (AUTO) 19.2 % (20.0-45.0); MEAN CORPUSCULAR VOLUME 95 FL (80-99); MONOCYTES % (AUTO) 12.6 % (1.0-10.0); NEUTROPHILS % (AUTO) 67.3 % (45.0-75.0); PLATELET COUNT 320 K/UL (150-450); RED BLOOD COUNT 4.65 M/UL (4.70-6.10); WHITE BLOOD COUNT 12.3 K/UL (4.8-10.8)
--- NOTE | 2019-04-27 10:15 | NUR ---
ED Nurse Note: Pt is unable to provide urine at this time.
[2019-04-27 10:19] LABS: ANION GAP 10 mmol/L (5-15); BLOOD UREA NITROGEN 28 mg/dL (7-18); CALCIUM 9.4 MG/DL (8.5-10.1); CARBON DIOXIDE 28 MMOL/L (21-32); CHLORIDE 106 MMOL/L (98-107); CREATININE 1.3 MG/DL (0.55-1.30); POTASSIUM 3.7 MMOL/L (3.5-5.1); SODIUM 144 MMOL/L (136-145)
[2019-04-27 10:33] LABS: ALANINE AMINOTRANSFERASE 23 U/L (12-78); ALBUMIN 4.2 G/DL (3.4-5.0); ALKALINE PHOSPHATASE 53 U/L (46-116); ASPARTATE AMINO TRANSFERASE 40 U/L (15-37); BILIRUBIN,TOTAL 1.2 MG/DL (0.2-1.0); CKMB 10.5 NG/ML (0.0-3.6); CREATINE KINASE 1118 U/L (26-308)
[2019-04-27 10:34] LABS: BILIRUBIN,DIRECT 0.2 MG/DL (0.0-0.3)
[2019-04-27 11:45] VITALS: BP 148/80
[2019-04-27 12:09] LABS: APPEARANCE,URINE CLEAR; BILIRUBIN, URINE NEGATIVE (NEGATIVE); COLOR,URINE YELLOW; GLUCOSE, URINE (UA) NEGATIVE (NEGATIVE); KETONES,URINE 3+ (NEGATIVE); LEUKOCYTE ESTERASE ,URINE NEGATIVE (NEGATIVE); NITRITE,URINE NEGATIVE (NEGATIVE); PH,URINE 5 (4.5-8.0); PROTEIN,URINE 2+ (NEGATIVE); UROBILINOGEN,URINE NORMAL MG/DL (0.0-1.0)
--- NOTE | 2019-04-27 13:00 | NUR ---
ED Nurse Note: Lunch provided to pt. No distress and pt calm.
--- NOTE | 2019-04-27 13:36 | Diagnostic Imaging Report ---
EXAM: XR Chest, 1 View CLINICAL HISTORY: CP TECHNIQUE: Frontal view of the chest. COMPARISON: Chest radiograph on 02 05 2019 FINDINGS: Hardware: None. Lungs pleura: Elevation of the right hemidiaphragm. No focal consolidation. No pleural effusion or pneumothorax. Heart mediastinum: Stable mild enlargement of the cardiomediastinal silhouette. Soft tissues: Unremarkable. Bones: No acute fracture. Degenerative changes of the visualized left acromioclavicular joint. Upper abdomen: Normal. IMPRESSION: No acute disease identified.
--- NOTE | 2019-04-27 16:07 | NUR ---
ED Nurse Note: repeat blood work sent to lab.
[2019-04-27 16:37] LABS: CREATINE KINASE 810 U/L (26-308)
--- NOTE | 2019-04-27 16:55 | NUR ---
ER Nurse Note: Spoke to Jairo in [facility] in [facility] for placement. Jairo stated the staff is reviewing the case and will call back.
--- NOTE | 2019-04-27 17:09 | NUR ---
ED Nurse Note: urinal provided to the patient as requested.
--- NOTE | 2019-04-27 18:29 | NUR ---
ED Nurse Note: report given to Tanika STYLES. Endorsed all plan of care to Tanika RN. patient's bed linen and gown provided to the patient. Addendum: 04/27/19 at 1855 by MARY report given to Tanika STYLES. Endorsed all plan of care to Tanika RN. patient's bed linen changed and new gown provided to the patient.
[2019-04-27 18:55] VITALS: BP 149/82
--- NOTE | 2019-04-27 19:30 | NUR ---
ED Nurse Note: Due to patient's presenting condition, pt's environment safety checklist done. closed monitoring observed.
--- NOTE | 2019-04-27 19:30 | NUR ---
HAND-OFF: Report given to ANSELMO STYLES. patient is stable in bed.
[2019-04-27 20:00] VITALS: BP 138/80
--- NOTE | 2019-04-27 20:00 | NUR ---
ED Nurse Note: Pt transferred to [facility] sukhdeep etienne. All belongings sent with pt. Nawaf for transfer.
--- NOTE | 2019-04-27 20:56 | Emergency Room Report ---
Physical Exam Vital Signs Date Time Temp Pulse Resp B/P (MAP) Pulse Ox O2 Delivery O2 Flow Rate FiO2 04/27/19 09:37 98.2 92 18 160/90 (113) 99 Room Air Medical Decision Making Diagnostic Impression: Primary Impression: Chest pain Qualified Codes: R07.9 - Chest pain, unspecified Additional Impressions: Suicidal ideation Polysubstance abuse ER Course Hospital Course 53-year-old male presents to ED for suicidal ideation. h/o cocaine use. Patient initially seen and evaluated by Dr Billings; please see his note for full history and physical Clinical course Initial troponin negative, initial CK mild elevation. Drug screen positive for cocaine and marijuana given IV Hydration. Repeat troponin active, repeat CK improving. Patient is medically cleared and pending psychiatric evaluation. patient accepted to psychiatric facility i. I feel this is a highly complex case requiring extensive working including EKG/Rhythm strip, Xray/CT/US, Blood/urine lab work, repeat exams while in ED, and administration of strong opiates/narcotics for pain control, admission to hospital or close patient follow up. Labs Test 04/27/19 08:10 04/27/19 11:33 04/27/19 16:00 White Blood Count 12.3 K/UL (4.8-10.8) Red Blood Count 4.65 M/UL (4.70-6.10) Hemoglobin 14.3 G/DL (14.2-18.0) Hematocrit 44.1 % (42.0-52.0) Mean Corpuscular Volume 95 FL (80-99) Mean Corpuscular Hemoglobin 30.8 PG (27.0-31.0) Mean Corpuscular Hemoglobin Concent 32.4 G/DL (32.0-36.0) Red Cell Distribution Width 12.0 % (11.6-14.8) Platelet Count 320 K/UL (150-450) Mean Platelet Volume 7.2 FL (6.5-10.1) Neutrophils (%) (Auto) 67.3 % (45.0-75.0) Lymphocytes (%) (Auto) 19.2 % (20.0-45.0) Monocytes (%) (Auto) 12.6 % (1.0-10.0) Eosinophils (%) (Auto) 0.0 % (0.0-3.0) Basophils (%) (Auto) 0.9 % (0.0-2.0) Sodium Level 144 MMOL/L (136-145) Potassium Level 3.7 MMOL/L (3.5-5.1) Chloride Level 106 MMOL/L (98-107) Carbon Dioxide Level 28 MMOL/L (21-32) Anion Gap 10 mmol/L (5-15) Blood Urea Nitrogen 28 mg/dL (7-18) Creatinine 1.3 MG/DL (0.55-1.30) Estimat Glomerular Filtration Rate > 60 mL/min (>60) Glucose Level 94 MG/DL (74-106) Calcium Level 9.4 MG/DL (8.5-10.1) Total Bilirubin 1.2 MG/DL (0.2-1.0) Direct Bilirubin 0.2 MG/DL (0.0-0.3) Aspartate Amino Transf (AST/SGOT) 40 U/L (15-37) Alanine Aminotransferase (ALT/SGPT) 23 U/L (12-78) Alkaline Phosphatase 53 U/L (46-116) Total Creatine Kinase 1118 U/L (26-308) 810 U/L (26-308) Creatine Kinase MB 10.5 NG/ML (0.0-3.6) Creatine Kinase MB Relative Index 0.9 Troponin I 0.012 ng/mL (0.000-0.056) 0.014 ng/mL (0.000-0.056) Total Protein 8.3 G/DL (6.4-8.2) Albumin 4.2 G/DL (3.4-5.0) Globulin 4.1 g/dL Albumin/Globulin Ratio 1.0 (1.0-2.7) Salicylates Level 0.4 ug/mL (2.8-20) Acetaminophen Level < 2 MCG/ML (10-30) Serum Alcohol < 3 mg/dL Urine Color Yellow Urine Appearance Clear Urine pH 5 (4.5-8.0) Urine Specific [place] 1.025 (1.005-1.035) Urine Protein 2+ (NEGATIVE) Urine Glucose (UA) Negative (NEGATIVE) Urine Ketones 3+ (NEGATIVE) Urine Blood Negative (NEGATIVE) Urine Nitrite Negative (NEGATIVE) Urine Bilirubin Negative (NEGATIVE) Urine Urobilinogen Normal MG/DL (0.0-1.0) Urine Leukocyte Esterase Negative (NEGATIVE) Urine RBC 0 /HPF (0 - 0) Urine WBC 0-2 /HPF (0 - 0) Urine Squamous Epithelial Cells Occasional /LPF Urine Bacteria Occasional /HPF (NONE) Urine Opiates Screen Negative (NEGATIVE) Urine Barbiturates Screen Negative (NEGATIVE) Phencyclidine (PCP) Screen Negative (NEGATIVE) Urine Amphetamines Screen Negative (NEGATIVE) Urine Benzodiazepines Screen Negative (NEGATIVE) Urine Cocaine Screen Positive (NEGATIVE) Urine Marijuana (THC) Screen Positive (NEGATIVE) EKG Diagnostic Results Rate: normal Rhythm: NSR ST Segments: no acute changes ASA given to the pt in ED: No Rhythm Strip Diag. Results EP Interpretation: yes Rhythm: NSR, no PVC's, no ectopy Chest X-Ray Diagnostic Results Chest X-Ray Diagnostic Results : Chest X-Ray Ordered: Yes # of Views/Limited/Complete: 1 View Indication: Chest Pain EP Interpretation: Yes Interpretation: no consolidation, no effusion, no pneumothorax, no acute cardiopulmonary disease Impression: No acute disease Electronically Signed by: Electronically signed by Josh Levi MD Last Vital Signs Date Time Temp Pulse Resp B/P (MAP) Pulse Ox O2 Delivery O2 Flow Rate FiO2 04/27/19 20:00 98.2 79 16 138/80 100 Room Air Status: improved Disposition: XFER TO PSYCH HOSP/UNIT Condition: Serious Josh Levi MD Apr 27, 2019 20:56
--- NOTE | 2019-04-28 11:34 | Cardiology Report ---
APPROVED REPORT EKG Measurement Heart [id number] Sinus tachycardia Otherwise normal ECG
== END 2019-04-27 20:00 ==
LOC: EDBD 09:44 → EMR 20:00
DX: R07.9 Chest pain, unspecified (principal); R45.851 Suicidal ideations; F14.10 Cocaine abuse, uncomplicated; F12.10 Cannabis abuse, uncomplicated; F32.9 Major depressive disorder, single episode, unspecified; F41.9 Anxiety disorder, unspecified; Z88.6 Allergy status to analgesic agent; Z88.8 Allergy status to other drugs, medicaments and biological substances; R74.8 Abnormal levels of other serum enzymes
CPT/HCPCS: 36415; 71045; 80053; 80307; 81003; 82248; 82550; 82553; 84484; 85025; 93005; 96360; 96361; 99284; G0480; 80329